=== PATIENT | male | born 1955 | race Hispanic/Latino ===

== ENCOUNTER 2020-05-02 09:01 | Inpatient (IN) | payer SELFPAY ==
[2020-05-02] VITALS (22 sets, daily range): BP systolic 114–174; BP diastolic 79–117; PULSE 61–77; RESP 13–19; TEMP 36.4–36.6; O2SAT 98–100; BMI 28.6; BMI 28.7
--- NOTE | 2020-05-02 09:05 | ED.RN ---
PT NON [place]ER SPEAKING, SON AT BEDSIDE TRANSLATING.
--- NOTE | 2020-05-02 09:07 | EKG12_ITS ---
Test Reason : STEMI Blood Pressure : / mmHG Vent. Rate : 057 BPM Atrial Rate : 057 BPM P-R Int : 170 ms QRS Dur : 104 ms QT Int : 450 ms P-R-T Axes : 026 -56 080 degrees QTc Int : 438 ms Sinus bradycardia Left anterior fascicular block ST elevation consider inferolateral injury or acute infarct ACUTE [place] / STEMI Consider right ventricular involvement in acute inferior infarct Abnormal ECG Confirmed by MAYDA JETER, BISI ([id number]), newspaper editor NEHEMIAH DAVIS ([id number]) on 05/05/2020 11:27:52 AM Referred By: Charles Tucker Confirmed By:ANGELIC TUCKER MD
--- NOTE | 2020-05-02 09:09 | ED.DCSUM_ITS ---
- ER Visit Summary Date of Service: 05/02/20 Chief Complaint: Acute chest pain History of Present Illness: The patient is a 64 M with no significant past medical or surgical history. However he does not see any physicians. Currently on no medications and has no allergies. The patient is does not speak Croatian but his son is with him and is his hand stemmer. Reportedly per the son and the squad the patient works at a local farm and began having chest pain sometime this morning. Recently has not been ill. He is not had recent chest pain reportedly. Kalpana did an EKG in the field which was transmitted to the emergency department and looks like an acute inferolateral PR. The STEMI team was activated prearrival. Patient denies other complaints. He has never had a DVT or PE. He has had no recent travel. Physical Examination: Older male. Initial blood pressure is 114/79. Heart rate of 57. HEENT exam unremarkable. Neck nontender. No lymphadenopathy. No JVD. Lungs clear to auscultation bilaterally. Heart regular rhythm rate about 55-60. No murmur. Chest wall nontender. Abdomen soft nontender. Normal bowel sounds. Patient moving all 4 extremities. Equal symmetrical radial pulses. Calves are nontender without edema or cords. Neurologically he is awake. He is conversing with his son as the hand stemmer. He is following commands. Test Results: EKG shows sinus bradycardia rate of 57 with what appears to be acute inferolateral PR with ST elevation in leads II, III and aVF of approximately [address] depression in leads V1, V2, V3 and also ST elevation in V5 and V6. CBC shows a white count 8 hemoglobin of 15. Chemistries show potassium of 2.6 with the charge nurse notified the [facility] about. Normal BUN and creatinine. Glucose elevated to 15. Troponin 0 0.086. Initially for chest pain protocol a chest x-ray was ordered but the patient went to [facility] so that has been canceled. If cardiology or hospitalist wants 1 they can reorder it. Emergency Department Course and Treatment: Prior to arrival a 64-year-old male brought in by [facility] had STEMI team activated on prehospital EKGs. [facility] had already given the patient aspirin and sublingual nitroglycerin. Reportedly he is pain-free. Treatment Plan: I spoke to the rental boats caretaker Dr. Tucker. He came to the emergency department prior to the patient's arrival. He is also reviewed the prehospital EKGs. Is also spoken to the patient and his son and received consent. He will take the patient directly to the [facility] that is already ready to receive the patient. He did not want any further medications given to the patient at this time and they will administer the medications that he wants in the [facility]. Patient does have pacing pads in place if needed. Disposition: Directly to the [facility]. Then admission. I have already spoken to the configuration management architect and the hospitalist. Impression: Acute inferolateral PR Hypokalemia Hyperglycemia This note was generated with [employer]app[employer] dictation software. It may contain incorrect words, spelling, and punctuation that were not noted in review of the chart prior to signing
--- NOTE | 2020-05-02 09:14 | HP.PCM_ITS ---
History of Present Illness Date of Admission: 05/02/20 Chief Complaint: chest pain The patient is a 64 year old M with no significant past medical history was admitted through the ED on 05/02/2020 with a complaint of chest pain. History was taken through his son as patient speaks only Afghan. According to his son, patient said his chest pain started around 3 AM while she was at work. Chest pain was left-sided, pressure-like and did not radiate. He had no assisted lightheadedness or dizziness, palpitations or shortness of breath. He worked throughout his shift with the chest pain and later went to his son's house where chest pain was persistent and gradually became worse so his son called the EMS. MS did an EKG which showed an inferior lateral NE. STEMI alert was called and was sent emergently to the cardiac cath lab tech. EKG done showed sinus bradycardia with rate of [address] elevation in leads II, III and aVF. CBC was unremarkable and BMP showed potassium of 2.6. Initial troponin was 0.2086. Patient had cardiac cath with placement of bare-metal stent in the right coronary artery. He was subsequently transferred to the ICU afterwards. Patient has no history of heart disease. He has been managed for STEMI post cardiac cath with stent placement. [] Past Medical History Allergies No Known Allergies Allergy (Verified 05/02/20 09:06) Surgical History: no surgical history Psychiatric History: No pertinent psych hx Lives: With Family Smoking Status: Never smoker Alcohol: None - *Family History Paternal History Items: - - brain aneurysm Maternal History Items: No pertinent history Review of Systems Constitutional: Denies: Chills, Fever, Weight Change HEENT: Denies: Head Aches, Sinus Congestion, Sinus Drainage Cardiovascular: Reports: Chest Pain, Chest Pressure. Denies: Palpitations Respiratory: Denies: Cough, Shortness of breath at rest, Sputum production Gastrointestinal: Denies: Abdominal Pain, Nausea, Vomiting Genitourinary: Denies: Dysuria Musculoskeletal: Denies: Joint Pain, Joint Tenderness Skin: Denies: Rash, Wounds Neurological: Denies: Numbness, Tingling, Focal weakness Psychiatric: Denies: Anxiety, Depression, Homicidal Ideations, Suicidal Ideations Hematologic/ Lymphatic: Denies: Easy Bruising, Easy Bleeding VTE Information - Inpt Only VTE Present on Admission: No VTE Pharm Prophylaxis ordered?: Yes - Physical Exam Vitals/I&O's: Vital Signs Temp Resp BP 97.8 F 16 114/79 05/02/20 09:07 05/02/20 09:02 05/02/20 09:02 Weight: 0 oz Body Mass Index (BMI) 0.0 General: Alert, Oriented x3, Cooperative HEENT: Atraumatic, PERRLA, EOMI, Normocephalic Neck: Supple, No JVD, Negative Carotid Bruits Lungs: Clear to auscultation, Normal air movement Cardiovascular: Regular rate, No murmurs Abdomen: Bowel Sounds Present, Soft, Non Tender Extremities: No edema, Capillary Refill Less than 3 Seconds Skin: No rashes, No breakdown Musculoskeletal: No Tenderness to Palpation of Joints or Extremities Lymphatic: No Cervical, Supraclavicular, or Inguinal Adenopathy Neurological: Cranial nerves II-XII grossly intact, Neuro grossly intact, Motor Exam 5/5 strength throughout Psych/Mental Status: Normal Affect, Appropriate, Alert and oriented to time, place, person, mood and affect Laboratory Last Values WBC 8.7 K/mm3 (4.4-11.0) 05/02/20 09:05 RBC 5.28 M/mm3 (4.6-6.2) 05/02/20 09:05 Hgb 15.2 g/dL (13.0-16.5) 05/02/20 09:05 Hct 44.8 % (40-54) 05/02/20 09:05 MCV 84.8 fL (80-94) 05/02/20 09:05 MCH 28.8 pg (27.0-32.0) 05/02/20 09:05 MCHC 33.9 g/dL (32-36) 05/02/20 09:05 RDW Std Deviation 39.8 fl (35.1-43.9) 05/02/20 09:05 RDW Coeff of Chris 12.8 % (11.6-14.6) 05/02/20 09:05 Plt Count 223 K/mm3 (150-450) 05/02/20 09:05 MPV 10.6 fl (6.2-12.0) 05/02/20 09:05 Immature Gran % (Auto) 0.300 % (0.0-0.9) 05/02/20 09:05 Neut % (Auto) 53.9 % (47-70) 05/02/20 09:05 Lymph % (Auto) 36.6 % (19-41) 05/02/20 09:05 Wilkinson % (Auto) 6.4 % (0-10) 05/02/20 09:05 Eos % (Auto) 2.1 % (0-5) 05/02/20 09:05 Baso % (Auto) 0.7 % (0-1) 05/02/20 09:05 Absolute Neuts (auto) 4.7 X10^3/uL (2.0-7.7) 05/02/20 09:05 Absolute Lymphs (auto) 3.18 X10^3/uL (0.83-4.51) 05/02/20 09:05 Nucleated RBC % 0 % (0-5) 05/02/20 09:05 Sodium 138 mmol/L (136-145) 05/02/20 09:05 Potassium 2.6 mmol/L (3.5-5.1) L* 05/02/20 09:05 Chloride 104 mmol/L (98-107) 05/02/20 09:05 Carbon Dioxide 24.0 mmol/L (21.0-32.0) 05/02/20 09:05 Anion Gap 10 (5-15) 05/02/20 09:05 BUN 13 mg/dL (7-18) 05/02/20 09:05 Creatinine 1.03 mg/dL (0.70-1.30) 05/02/20 09:05 Estim Creat Clear Calc 0.00 ml/min 05/02/20 09:05 Est GFR (MDRD) Af Amer 93 mL/min (>60) 05/02/20 09:05 Est GFR (MDRD) Non-Af 77 mL/min (>60) 05/02/20 09:05 BUN/Creatinine Ratio 12.6 RATIO (10-20) 05/02/20 09:05 Glucose 215 mg/dL (74-106) H 05/02/20 09:05 Calcium 8.7 mg/dL (8.5-10.1) 05/02/20 09:05 Troponin I 0.086 ng/mL (<0.045) H 05/02/20 09:05 Assessment/Plan 64-year-old male admitted with a complaint of chest pain and found to have inferior STEMI #STEMI s/p cardiac cath * Cath with placement of stent in RCA. He had a bare-metal stent placed. * On aspirin and Brilinta. On high intensity statin. * Consider starting low-dose beta-angela and PASTORA inhibitor tomorrow. * cardiology on board. * #Hypokalemia: Potassium is 2.6. Will replace protocol. Will check magnesium level. #Hyperglycemia: blood glucose on admission was 215. Will check A1C. DVT prophylaxis; SCDs Code status: full code * Patient and son counseled extensively about differences between full code, DNR CCA and DNR CCA. Son could not understand the concept of CODE STATUS very well even when it was explained to him and still could not translate adequately for his father to understand. dividend deposit voucher clerk was brought in and CODE STATUS explained to patient in Afghan and he advocates to be full code. * Total [id number] time spent 20 minutes Inpatient E&M: 54624 Init Hosp L3 Procedures: 94145 Advncd Care Plan 30 Min
[2020-05-02 09:17] LABS: Absolute Lymphocyte Count 3.18 X10^3/uL (0.83-4.51); Absolute Neutrophil Count 4.7 X10^3/uL (2.0-7.7); Basophil# 0.06 X10^3/uL; Basophil% 0.7 % (0-1); Eosinophil# 0.18 X10^3/uL; Eosinophils% 2.1 % (0-5); Hematocrit 44.8 % (40-54); Hemoglobin 15.2 g/dL (13.0-16.5); Lymphocyte # 3.18 X10^3/ul (4.0); Lymphocyte % 36.6 % (19-41); Mean Corp Hgb Conc 33.9 g/dL (32-36); Mean Corpuscular Hgb 28.8 pg (27.0-32.0); Mean Corpuscular Volume 84.8 fL (80-94); Mean Platelet Vol. 10.6 fl (6.2-12.0); Monocyte# 0.56 X10^3/uL; Monocyte% 6.4 % (0-10); NRBC Flagged by Analyzer 0 % (0-5); Neutrophil # 4.68 X10^3/uL (2.7-7.7); Neutrophil % 53.9 % (47-70); Platelet Count 223 K/mm3 (150-450); RBC Distribution Width CV 12.8 % (11.6-14.6); RBC Distribution Width SD 39.8 fl (35.1-43.9); Red Blood Count 5.28 M/mm3 (4.6-6.2); White Blood Count 8.7 K/mm3 (4.4-11.0)
[2020-05-02 09:40] LABS: Anion Gap 10 (5-15); BUN 13 mg/dL (7-18); BUN/Creat Ratio 12.6 RATIO (10-20); Calcium,Total 8.7 mg/dL (8.5-10.1); Chloride 104 mmol/L (98-107); Creatinine, Serum 1.03 mg/dL (0.70-1.30); EST Glomerular Filtration Rate 77 mL/min (>60); Est Glom Filt Rate - Afr Amer 93 mL/min (>60); Glucose 215 mg/dL (74-106); Potassium 2.6 mmol/L (3.5-5.1); Sodium Level 138 mmol/L (136-145)
--- NOTE | 2020-05-02 10:30 | EKG12_ITS ---
Test Reason : POST STEMI Blood Pressure : / mmHG Vent. Rate : 069 BPM Atrial Rate : 069 BPM P-R Int : 170 ms QRS Dur : 108 ms QT Int : 424 ms P-R-T Axes : 047 -89 051 degrees QTc Int : 454 ms Normal sinus rhythm Left anterior fascicular block Abnormal ECG When compared with ECG of 02-MAY-2020 09:02, MANUAL COMPARISON REQUIRED, DATA IS UNCONFIRMED Confirmed by TANNA JETER, EDEN ([id number]), managing editor NEHEMIAH DAVIS ([id number]) on 05/07/2020 10:16:40 AM Referred By: Charles Tucker Confirmed By:EDEN CISSE MD
--- NOTE | 2020-05-02 10:45 | EKG12_ITS ---
Test Reason : AM EKG Blood Pressure : / mmHG Vent. Rate : 065 BPM Atrial Rate : 065 BPM P-R Int : 158 ms QRS Dur : 100 ms QT Int : 446 ms P-R-T Axes : 042 -83 037 degrees QTc Int : 463 ms Sinus rhythm with Premature supraventricular complexes Left axis deviation Inferior infarct , age undetermined T wave abnormality, consider lateral ischemia Abnormal ECG When compared with ECG of 03-MAY-2020 04:33, MANUAL COMPARISON REQUIRED, DATA IS UNCONFIRMED Confirmed by TANNA JETER, EDEN ([id number]), scientific editor LESIA SALDANA ([id number]) on 05/06/2020 8:42:07 AM Referred By: Charles Tucker Confirmed By:EDEN CISSE MD
[2020-05-02] MEDS: 0.9% Normal Saline 1,000 ML 100 ML IV ×2 (11:30→21:08)
[2020-05-02] MEDS: Lisinopril 5 MG Tablet PO (12:34)
[2020-05-02] MEDS: Potassium Chloride 10mEq/100mL 10 MEQ/100 ML IV.SOLN. 100 MEQ IV BOLUS ×2 (13:03→14:30)
[2020-05-02] MEDS: Potassium Chloride 10mEq/100mL 10 MEQ/100 ML IV.SOLN. 50 MEQ IV BOLUS ×2 (16:30→21:07)
[2020-05-02 17:13] LABS: Magnesium 2.1 mg/dL (1.6-2.6)
--- NOTE | 2020-05-02 17:21 | PCM.CONS.C ---
Reason for Consult Date of Consultation: 05/02/20 Reason for Consultation: STEMI History of Present Illness: The patient is a 64 year old M [presenting to [facility] with chest pain. Patient does not speak Serbian and the history was obtained with the help of his son. The chest pain started earlier this morning. It was retrosternal. Patient called 911 and an EKG done in the field revealed inferior and lateral ST elevation MA. STEMI alert was activated prior to the patient coming to the [facility]. Patient was seen in the emergency room and after discussing with the patient the decision was made to proceed with emergent coronary angiography. This revealed occlusion of the circumflex that was treated with bare-metal stent placement. Stent options were discussed with the patient's son prior to proceeding with bare-metal stent. Patient's chest pain improved significantly at the end of the procedure.] Past Medical History Allergies/Adverse Reactions: Allergies No Known Allergies Allergy (Verified 05/02/20 09:06) Surgical History: no surgical history Psychiatric History: No pertinent psych hx - *Family History Paternal History Items: - - brain aneurysm Maternal History Items: No pertinent history Lives: With Family Smoking Status: Never smoker Alcohol: None Objective: Vital Signs Temp Pulse Resp BP Pulse Ox 97.6 F L 63 15 167/105 H 100 05/02/20 10:45 05/02/20 15:00 05/02/20 11:00 05/02/20 11:00 05/02/20 11:51 Oxygen Delivery Method Room Air Weight: 156 lb 11.979 oz Body Mass Index (BMI) 28.6 Intake and Output for Last 24 Hours 04/30/20 05/01/20 05/02/20 23:59 23:59 23:59 Intake Total 160 / 160 Balance 160 / 160 General: Awake, Alert, Oriented x 3 HEENT: Atraumatic Oral: Moist Mucosa Neck: Supple Cardiovascular: Regular Rhythm Abdomen: Soft Extremities: No edema Skin: No Rashes Psych/Mental Status: Appropriate 05/02/20 09:05: WBC 8.7, RBC 5.28, Hgb 15.2, Hct 44.8, MCV 84.8, MCH 28.8, MCHC 33.9, Plt Count 223, MPV 10.6, Immature Gran % (Auto) 0.300, Neut % (Auto) 53.9, Lymph % (Auto) 36.6, [place] % (Auto) 6.4, Eos % (Auto) 2.1, Baso % (Auto) 0.7, Absolute Neuts (auto) 4.7, Nucleated RBC % 0 05/02/20 09:05: Sodium 138, Potassium 2.6 L*, Chloride 104, Carbon Dioxide 24.0, Anion Gap 10, BUN 13, Creatinine 1.03, Est GFR (MDRD) Af Amer 93, Est GFR (MDRD) Non-Af 77, BUN/Creatinine Ratio 12.6, Glucose 215 H, Calcium 8.7, Troponin I 0.086 H 05/02/20 09:05: Magnesium 2.1 Rhythm: EKG: ECHO: Stress Test: Cardiac Cath: PCI: CT Surgery: Holter monitor: EPS: PPM: CXR: Chest CT Scan: Assessment/Plan 1. STEMI: Patient had occlusion of the circumflex that was treated with bare-metal stent placement. We will keep the patient on dual antiplatelet therapy, statin, beta-angela and PASTORA inhibitor. Patient will be admitted to the ICU for further management of his ST elevation MA. His overall EF appears to be preserved.
[2020-05-02 17:44] LABS: Prothrombin Time (Protime)PT. 12.9 SECONDS (11.7-14.9)
[2020-05-02 17:45] LABS: Partial Thromboplast Time 27.1 Seconds (24.1-36.2)
[2020-05-02] MEDS: Metoprolol Tartrate 25 MG Tablet PO (21:07)
[2020-05-02] MEDS: Atorvastatin Calcium 40 MG Tablet PO (21:08)
[2020-05-02] MEDS: TICAGRELOR 90 MG TABLET PO (21:08)
[2020-05-03] VITALS (20 sets, daily range): BP systolic 100–143; BP diastolic 64–107; PULSE 59–79; RESP 14–25; TEMP 36.6–37; O2SAT 95–100
[2020-05-03 03:26] LABS: Hematocrit 45.7 % (40-54); Hemoglobin 14.9 g/dL (13.0-16.5); Mean Corp Hgb Conc 32.6 g/dL (32-36); Mean Corpuscular Hgb 28.2 pg (27.0-32.0); Mean Corpuscular Volume 86.4 fL (80-94); Mean Platelet Vol. 10.4 fl (6.2-12.0); Platelet Count 224 K/mm3 (150-450); RBC Distribution Width CV 13.4 % (11.6-14.6); RBC Distribution Width SD 42.5 fl (35.1-43.9); Red Blood Count 5.29 M/mm3 (4.6-6.2); White Blood Count 12.1 K/mm3 (4.4-11.0)
[2020-05-03 03:53] LABS: Albumin, Serum 3.3 g/dL (3.2-5.0); BUN 12 mg/dL (7-18); BUN/Creat Ratio 13.7 RATIO (10-20); Creatinine, Serum 0.87 mg/dL (0.70-1.30); EST Glomerular Filtration Rate 93 mL/min (>60); Est Glom Filt Rate - Afr Amer 112 mL/min (>60); Estimated Creatinine Clearance 65.37 ml/min; Globulin 3.8 g/dL (2.2-4.2); Glucose 129 mg/dL (74-106); Protein, Total 7.1 g/dL (6.4-8.2)
[2020-05-03 03:54] LABS: ALB/GLOB Ratio 0.9 RATIO (0.9-2.4); AST(SGOT) 343 U/L (15-37); Alanine Aminotransfer ALT/SGPT 92 U/L (16-61); Alkaline Phosphatase 87 U/L (45-117); Anion Gap 5 (5-15); Calcium,Total 9.1 mg/dL (8.5-10.1); Chloride 112 mmol/L (98-107); Potassium 4.6 mmol/L (3.5-5.1); Sodium Level 140 mmol/L (136-145)
--- NOTE | 2020-05-03 07:37 | ECHOD_ITS ---
Version 2 Reason For Study: STEMI Procedure This was a 2D Doppler, Color Flow transthoracic echocardiogram. Exam performed portable in ICU/CCU. Left Ventricle Normal LV size. The estimated ejection fraction is 50-55 %. Normal diastology for age. Inferolateral hypokinesis. Right Ventricle Normal RV size. Normal systolic function. Atria Normal left atrium. Normal right atrium. No doppler evidence for ASD. Bubble contrast study negative for right to left interatrial shunt. Atrial septal aneurysm noted. Mitral Valve There is no mitral valve stenosis. No mitral valve insufficiency. Tricuspid Valve There is no tricuspid stenosis. Trivial tricuspid valve insufficiency. Unable to estimate RV systolic pressure due to insufficient tricuspid regurgitant envelope. Aortic Valve Trisinus/trileaflet aortic valve. There is no aortic stenosis. No aortic valve insufficiency. Pulmonic Valve There is no pulmonic valvular stenosis. No pulmonic valve insufficiency. Great Vessels Normal aortic root. Pericardium/Pleural No pericardial effusion. Medication Performed a rapid injection of agitated mix of 9 cc saline and 1cc air to assess for atrial septal defect. MMode/2D Measurements & Calculations LVIDd: 4.4 cm IVSd: 1.1 cm Ao root diam: 3.1 cm LVIDs: 3.2 cm LVPWd: 1.5 cm RVDd: 3.1 cm FS: 27.6 % LAV(MOD-bp): 47.1 ml LVAd ap4: 27.3 cm2 SV(MOD-sp4): 35.8 ml LAV(MOD-bp) Indexed: 27.5 ml/m2 EDV(MOD-sp4): 71.7 ml LAV(MOD-sp2): 47.0 ml EDV(sp4-el): 74.0 ml LAV(MOD-sp4): 46.7 ml LVAs ap4: 18.2 cm2 ESV(MOD-sp4): 35.9 ml ESV(sp4-el): 35.9 ml EF(MOD-sp4): 49.9 % EF(sp4-el): 51.4 % SV(sp4-el): 38.0 ml LA A4 area: 17.0 cm2 LA dimension(2D): 3.7 cm RA A4 area: 12.5 cm2 Doppler Measurements & Calculations MV E max juan jose: 55.9 cm/sec Lat Peak E' Juan Jose: 5.9 cm/sec Med Peak E' Juan Jose: 5.8 cm/sec MV A max juan jose: 85.4 cm/sec E/E' lat: 9.4 E/E' med: 9.6 MV E/A: 0.66 Ao V2 max: 137.7 cm/sec LV V1 max: 105.2 cm/sec PA V2 max: 75.3 cm/sec Ao max P.6 mmHg LV V1 max P.4 mmHg TR max juan jose: 210.7 cm/sec TR max P.8 mmHg Interpretation Summary The estimated ejection fraction is 50-55 %. Normal diastology for age. Inferolateral hypokinesis Ordering Physician: Cynthia Elizondo Referring Physician: Charles Tucker Performed By: Hina Aguilar RDCS
[2020-05-03] MEDS: Lisinopril 5 MG Tablet PO (09:45)
[2020-05-03] MEDS: TICAGRELOR 90 MG TABLET PO ×2 (09:45→21:09)
[2020-05-03] MEDS: Aspirin E.C. 81 MG Tablet PO (09:45)
[2020-05-03] MEDS: Metoprolol Tartrate 25 MG Tablet PO ×2 (09:45→21:10)
--- NOTE | 2020-05-03 10:00 | EKG12_ITS ---
Test Reason : AM EKG Blood Pressure : / mmHG Vent. Rate : 065 BPM Atrial Rate : 065 BPM P-R Int : 152 ms QRS Dur : 092 ms QT Int : 438 ms P-R-T Axes : 049 -81 053 degrees QTc Int : 455 ms Normal sinus rhythm Left anterior fascicular block T wave abnormality, consider lateral ischemia Abnormal ECG When compared with ECG of 02-MAY-2020 14:02, MANUAL COMPARISON REQUIRED, DATA IS UNCONFIRMED Confirmed by TANNA JETER, EDEN ([id number]), staff editor LESIA SALDANA ([id number]) on 05/06/2020 8:52:09 AM Referred By: Charles Tucker Confirmed By:EDEN CISSE MD
[2020-05-03 11:37] LABS: Cholesterol 231 mg/dL (200); High Density Lipoprotein 46 mg/dL; Triglycerides 168 mg/dL; Very Low Density Lipoprotein 34 mg/dL (5-40)
[2020-05-03 11:52] LABS: Hemoglobin A1c 7.3 % (3.8-5.6)
--- NOTE | 2020-05-03 12:27 | DS.PCM_ITS ---
Discharge Date and Diagnosis Date of Admission: 05/02/20 Date of Discharge: 05/04/20 - Primary Discharge Diagnosis Acute Problems: STEMI newly diagnosed diabetes mellitus hyperlipidemia Hospital Course and Treatment Imaging Results: 05/03/20 07:37 Echo Complete [ECHO] Routine cardiology- Dr Tucker Operations: None Procedures: 2-D Echocardiogram, Cardiac catheterization Summary of Care Provided: The patient is a 64 year old M with no significant past medical history was admitted through the ED on 05/02/2020 with a complaint of chest pain. History was taken through his son as patient speaks only Lao. According to his son, patient said his chest pain started around 3 AM while she was at work. Chest pain was left-sided, pressure-like and did not radiate. He had no assisted lightheadedness or dizziness, palpitations or shortness of breath. He worked throughout his shift with the chest pain and later went to his son's house where chest pain was persistent and gradually became worse so his son called the EMS. MS did an EKG which showed an inferior lateral TN. 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 EKG done showed sinus bradycardia with rate of [address] elevation in leads II, III and aVF. CBC was unremarkable and BMP showed potassium of 2.6. Initial troponin was 0.2086. Patient had cardiac cath with placement of bare-metal stent in the right coronary artery. He was subsequently transferred to the ICU afterwards. Patient has no history of heart disease. He was admitted to be managed for STEMI post cardiac cath with stent placement. Lipid panel done showed elevated total cholesterol and LDL. Was started on high intensity statin as well as lisinopril and metoprolol. 2D echo done showed EF of 50 to 55% with inferior lateral hypokinesis and normal diastolic for age. Right ventricle was normal in size and function and right and left atria were normal with an atrial septal aneurysm noted. Hypokalemia resolved with replacement. Patient remained stable and was discharged home on 05/03/2020. He is to follow-up with primary care doctor and cardiology. Patient seen and examined prior to discharge. Review was done through the interpreting service. He had no complaints and felt well. Patient asked for paperwork for long-term disability to take to his workplace because he felt he was disabled from the stents that he had placed. I informed patient that I was not able to provide such paperwork he would have to follow-up with his primary care doctor or establish with a PCP for such paperwork to be done on outpatient basis. O/E: Vital Signs Temp Pulse Resp BP Pulse Ox 97.8 F 67 18 119/90 H 99 05/03/20 12:00 05/03/20 12:00 05/03/20 12:00 05/03/20 12:00 05/03/20 12:00 General: Alert, Oriented x3, Cooperative HEENT: Atraumatic, PERRLA, EOMI, Normocephalic Neck: Supple, No JVD, Negative Carotid Bruits Lungs: Clear to auscultation, Normal air movement Cardiovascular: Regular rate, No murmurs Abdomen: Bowel Sounds Present, Soft, Non Tender Extremities: No edema, Capillary Refill Less than 3 Seconds Skin: No rashes, No breakdown Musculoskeletal: No Tenderness to Palpation of Joints or Extremities Lymphatic: No Cervical, Supraclavicular, or Inguinal Adenopathy Neurological: Cranial nerves II-XII grossly intact, Neuro grossly intact, Motor Exam 5/5 strength throughout Psych/Mental Status: Normal Affect, Appropriate, Alert and oriented to time, place, person, mood and affect Plan is for discharge home today. - Physical Exam Vitals/I&O's: Vital Signs Temp Pulse Resp BP Pulse Ox 97.8 F 65 14 123/90 H 98 05/03/20 08:00 05/03/20 10:00 05/03/20 10:00 05/03/20 10:00 05/03/20 10:00 Oxygen Delivery Method Room Air Weight: 154 lb 5.177 oz Body Mass Index (BMI) 28.6 Intake and Output for Last 24 Hours 05/01/20 05/02/20 05/03/20 23:59 23:59 23:59 Intake Total 1112.80 / 1352.80 820 / 820 Output Total 400 / 700 900 / 900 Balance 712.80 / 652.80 -80 / -80 Laboratory Results 05/02/20 09:05: Magnesium 2.1 05/02/20 17:15: PT 12.9, INR 1.0, APTT 27.1 05/03/20 03:04: WBC 12.1 H, RBC 5.29, Hgb 14.9, Hct 45.7, MCV 86.4, MCH 28.2, MCHC 32.6, RDW Std Deviation 42.5, RDW Coeff of Chris 13.4, Plt Count 224, MPV 10.4 05/03/20 03:05: Hemoglobin A1c 7.3 H 05/03/20 03:10: Sodium 140, Potassium 4.6, Chloride 112 H, Carbon Dioxide 23.0, Anion Gap 5, BUN 12, Creatinine 0.87, Estim Creat Clear Calc 65.37, Est GFR (MDRD) Af Amer 112, Est GFR (MDRD) Non-Af 93, BUN/Creatinine Ratio 13.7, Glucose 129 H, Calcium 9.1, Total Bilirubin 1.00, AST 343 H, ALT 92 H, Alkaline Phosphatase 87, Total Protein 7.1, Albumin 3.3, Globulin 3.8, Albumin/Globulin Ratio 0.9 05/03/20 03:10: Triglycerides 168, Cholesterol 231 H, LDL Cholesterol 151 H, VLDL Cholesterol 34, HDL Cholesterol 46 Current Medications Acetaminophen (Acetaminophen 325 Mg Tablet) 650 mg PO Q6H PRN PRN PRN Reason: Pain Score 1-10/Temp > 100.7 F Aspirin (Aspirin E.C. 81 Mg Tablet) 81 mg PO DAILY@0800 [facility] Last Admin: 05/03/20 09:45 Dose: 81 mg Documented by: Atorvastatin Calcium (Atorvastatin Calcium 40 Mg Tablet) 40 mg PO QHS [facility] Last Admin: 05/02/20 21:08 Dose: 40 mg Documented by: Atropine Sulfate (Atropine Sulfate 1 Mg/10 Ml Syringe) 0.5 mg IV UD PRN PRN Reason: HR <50 bpm Heparin Sodium (Beef Lung) (Heparin Lock 500 Unit/5 Ml In 10 Ml Syringe) 500 unit IV UD PRN PRN Reason: HEPARIN FLUSH Sodium Chloride () 1,000 mls @ 100 mls/hr IV .Q10H [facility] Last Admin: 05/03/20 09:44 Dose: Not Given Documented by: Sodium Chloride () 250 mls @ 15 mls/hr IV .[id number] PRN PRN Reason: Saline Flush Labetalol HCl (Labetalol (Prefilled) 20 Mg/4 Ml) 5 mg IV X1 PRN PRN Reason: SBP >160 when pulling sheath Stop: 05/04/20 10:40 Lisinopril (Lisinopril 5 Mg Tablet) 5 mg PO DAILY [facility] Last Admin: 05/03/20 09:45 Dose: 5 mg Documented by: Metoprolol Tartrate (Metoprolol Tartrate 25 Mg Tablet) 25 mg PO BID [facility] Last Admin: 05/03/20 09:45 Dose: 25 mg Documented by: Nitroglycerin (Nitroglycerin (Inpatient Use) 0.4 Mg Tab.Subl) 0.4 mg SUBLINGUAL Q5M PRN PRN Reason: CARDIAC/CHEST PAIN Ondansetron HCl (Ondansetron 4 Mg/2 Ml Vial) 4 mg IV Q8H PRN PRN PRN Reason: NAUSEA/VOMITING Sodium Chloride (0.9% Normal Saline 500 Ml Iv.Soln.) 500 ml IV BOLUS PRN PRN Reason: VASO-VAGAL PROTOCOL Sodium Chloride (0.9% Saline Lock 10 Ml Syringe) 10 - 40 ml IV UD PRN PRN Reason: SALINE FLUSH Ticagrelor (Ticagrelor 90 Mg Tablet) 90 mg PO BID [facility] Last Admin: 05/03/20 09:45 Dose: 90 mg Documented by: Discharge Diet: Low fat/ Low Cholesterol, 1800 Calorie Control Diet Discharge Activity: Return to Normal Activity Weight Bearing Status: Weight bearing as tolerated Call your doctor if your incision/area has: Continuous Slow Oozing Call your doctor if you observe: Shortness of breath, Dizziness, Fainting spells, Swelling in the ankles, Chest pain Home Medications: Medications to take at Discharge Aspirin E.C. [Ecotrin] 81 mg PO DAILY@0800 #30 tab 05/03/20 Atorvastatin Calcium [Lipitor] 40 mg PO QHS #30 tab 05/03/20 Lisinopril [Zestril] 5 mg PO DAILY #30 tab 05/03/20 Metformin HCl 500 mg PO BID #60 tab 05/03/20 Metoprolol Tartrate [Lopressor (beta rebeca)] 25 mg PO BID #60 tab 05/03/20 Ticagrelor [Brilinta] 90 mg PO BID #60 tab 05/03/20 Following Prescriptions Were Given to Patient: Ticagrelor [Brilinta] 90 mg PO BID #60 tab Prescription Printed Aspirin E.C. [Ecotrin] 81 mg PO DAILY@0800 #30 tab Prescription Printed Atorvastatin Calcium [Lipitor] 40 mg PO QHS #30 tab Prescription Printed Metoprolol Tartrate [Lopressor (beta rebeca)] 25 mg PO BID #60 tab Prescription Printed Metformin HCl 500 mg PO BID #60 tab Prescription Printed Lisinopril [Zestril] 5 mg PO DAILY #30 tab Prescription Printed Primary Care Physician: Care Physician,No Primary [Primary Care Provider] - Please Follow Up With: When: 2-3 weeks Please Follow Up With: Patricio Balbuena MD When: call office to establish PCP relationship Patient Instructions: What Is Type 2 Diabetes?, Recognizing a Heart Attack or Angina Disposition: Home Minutes spent on discharge:: 45 Patient Condition:: Stable Medical Necessity - Tobacco Use Smoking Status: Never smoker Meaningful Use Info Meaningful Use Diagnoses (Choose all that apply): AMI - AMI/Post PCI/Angioplasty Aspirin given w/in 24hrs of arrival?: Yes ASA at discharge?: Yes Antiplatelet Therapy at Discharge:: Yes Statins at discharge?: Yes Julius/ARB at discharge?: Yes Beta Rebeca at discharge?: Yes Done w/ Acute TN measure.: Yes Documented LVEF (%): 55 Inpatient E&M: 01304 Disch Hosp
--- NOTE | 2020-05-03 14:28 | PN_ITS ---
Subjective: Patient seen and examined. He has no complaints. Review of systems otherwise negative. Translation services utilized for review of systems and communicating with patient. Vitals/I&O's: Vital Signs Temp Pulse Resp BP Pulse Ox 97.8 F 60 15 118/90 H 99 05/03/20 12:00 05/03/20 12:00 05/03/20 12:00 05/03/20 12:00 05/03/20 12:00 Oxygen Delivery Method Room Air Weight: 154 lb 5.177 oz Body Mass Index (BMI) 28.6 Intake and Output for Last 24 Hours 05/01/20 05/02/20 05/03/20 23:59 23:59 23:59 Intake Total 1112.80 / 1352.80 1060 / 1060 Output Total 400 / 700 900 / 900 Balance 712.80 / 652.80 160 / 160 General: Alert, Oriented x3, Cooperative HEENT: Atraumatic, PERRLA, EOMI, Normocephalic Oral: Moist Mucosa Neck: Supple, No JVD, Negative Carotid Bruits Lungs: Clear to auscultation, Normal air movement Cardiovascular: Regular rate, No murmurs Abdomen: Bowel Sounds Present, Soft, Non Tender Extremities: No edema, Capillary Refill Less than 3 Seconds Skin: No rashes, No breakdown Musculoskeletal: No Tenderness to Palpation of Joints or Extremities Neurological: Cranial nerves II-XII grossly intact Psych/Mental Status: Normal Affect, Appropriate, Alert and oriented to time, place, person, mood and affect Laboratory Results 05/02/20 09:05: Magnesium 2.1 05/02/20 17:15: PT 12.9, INR 1.0, APTT 27.1 05/03/20 03:04: WBC 12.1 H, RBC 5.29, Hgb 14.9, Hct 45.7, MCV 86.4, MCH 28.2, MCHC 32.6, RDW Std Deviation 42.5, RDW Coeff of Chris 13.4, Plt Count 224, MPV 10.4 05/03/20 03:05: Hemoglobin A1c 7.3 H 05/03/20 03:10: Sodium 140, Potassium 4.6, Chloride 112 H, Carbon Dioxide 23.0, Anion Gap 5, BUN 12, Creatinine 0.87, Estim Creat Clear Calc 65.37, Est GFR (MDRD) Af Amer 112, Est GFR (MDRD) Non-Af 93, BUN/Creatinine Ratio 13.7, Glucose 129 H, Calcium 9.1, Total Bilirubin 1.00, AST 343 H, ALT 92 H, Alkaline Phosphatase 87, Total Protein 7.1, Albumin 3.3, Globulin 3.8, Albumin/Globulin Ratio 0.9 05/03/20 03:10: Triglycerides 168, Cholesterol 231 H, LDL Cholesterol 151 H, VLDL Cholesterol 34, HDL Cholesterol 46 Current Medications Acetaminophen (Acetaminophen 325 Mg Tablet) 650 mg PO Q6H PRN PRN PRN Reason: Pain Score 1-10/Temp > 100.7 F Aspirin (Aspirin E.C. 81 Mg Tablet) 81 mg PO DAILY@0800 [facility] Last Admin: 05/03/20 09:45 Dose: 81 mg Documented by: Atorvastatin Calcium (Atorvastatin Calcium 40 Mg Tablet) 40 mg PO QHS [facility] Last Admin: 05/02/20 21:08 Dose: 40 mg Documented by: Atropine Sulfate (Atropine Sulfate 1 Mg/10 Ml Syringe) 0.5 mg IV UD PRN PRN Reason: HR <50 bpm Heparin Sodium (Beef Lung) (Heparin Lock 500 Unit/5 Ml In 10 Ml Syringe) 500 unit IV UD PRN PRN Reason: HEPARIN FLUSH Sodium Chloride () 1,000 mls @ 100 mls/hr IV .Q10H [facility] Last Admin: 05/03/20 09:44 Dose: Not Given Documented by: Sodium Chloride () 250 mls @ 15 mls/hr IV .[id number] PRN PRN Reason: Saline Flush Labetalol HCl (Labetalol (Prefilled) 20 Mg/4 Ml) 5 mg IV X1 PRN PRN Reason: SBP >160 when pulling sheath Stop: 05/04/20 10:40 Lisinopril (Lisinopril 5 Mg Tablet) 5 mg PO DAILY [facility] Last Admin: 05/03/20 09:45 Dose: 5 mg Documented by: Metoprolol Tartrate (Metoprolol Tartrate 25 Mg Tablet) 25 mg PO BID [facility] Last Admin: 05/03/20 09:45 Dose: 25 mg Documented by: Nitroglycerin (Nitroglycerin (Inpatient Use) 0.4 Mg Tab.Subl) 0.4 mg SUBLINGUAL Q5M PRN PRN Reason: CARDIAC/CHEST PAIN Ondansetron HCl (Ondansetron 4 Mg/2 Ml Vial) 4 mg IV Q8H PRN PRN PRN Reason: NAUSEA/VOMITING Sodium Chloride (0.9% Normal Saline 500 Ml Iv.Soln.) 500 ml IV BOLUS PRN PRN Reason: VASO-VAGAL PROTOCOL Sodium Chloride (0.9% Saline Lock 10 Ml Syringe) 10 - 40 ml IV UD PRN PRN Reason: SALINE FLUSH Ticagrelor (Ticagrelor 90 Mg Tablet) 90 mg PO BID [facility] Last Admin: 05/03/20 09:45 Dose: 90 mg Documented by: STROKE Vital Signs/Narrative: Vital Signs Temp Pulse Resp BP BP Pulse Ox 05/03/20 12:00 97.8 F 60 15 119/90 H 118/90 H 99 05/03/20 11:00 66 16 124/89 H 97 Medical Necessity - Tobacco Use Smoking Status: Never smoker Assessment/Plan 64-year-old male admitted with a complaint of chest pain and found to have inferior STEMI #STEMI s/p cardiac cath * Cath with placement of stent in RCA. He had a bare-metal stent placed. * On aspirin and Brilinta. On high intensity statin. * on metoprolol and lisinopril * cardiology on board. * #Hypokalemia: resolved. #Hyperlipidemia: on statin #Newly diagnosed diabetes mellitus * A1c 7.3. Blood glucose was 215 on admission. Will start patient on metformin 500 mg twice daily. * Insulin sliding scale. Dr. Rafael ZIMMERMAN at bedtime. DVT prophylaxis; SCDs Code status: full code * Inpatient E&M: 92810 Subs Hosp L2
--- NOTE | 2020-05-03 15:55 | PN.CARD_ITS ---
Subjectve: Patient is doing well. Denies any chest pain or shortness of breath Objective: Vital Signs Temp Pulse Resp BP Pulse Ox 98.4 F 79 16 122/85 H 100 05/03/20 15:46 05/03/20 15:46 05/03/20 15:46 05/03/20 15:46 05/03/20 15:46 Oxygen Delivery Method Room Air Weight: 154 lb 5.177 oz Body Mass Index (BMI) 28.6 Intake and Output for Last 24 Hours 05/01/20 05/02/20 05/03/20 23:59 23:59 23:59 Intake Total 1112.80 / 1352.80 2300 / 2300 Output Total 400 / 700 1050 / 1050 Balance 712.80 / 652.80 1250 / 1250 General: Awake, Alert, Oriented x 3 HEENT: Atraumatic Oral: Moist Mucosa Neck: Supple Lungs: Clear to auscultation Cardiovascular: Regular Rhythm Abdomen: Soft Extremities: No edema Skin: No Rashes Psych/Mental Status: Appropriate 05/02/20 09:05: Magnesium 2.1 05/02/20 17:15: PT 12.9, INR 1.0, APTT 27.1 05/03/20 03:04: WBC 12.1 H, RBC 5.29, Hgb 14.9, Hct 45.7, MCV 86.4, MCH 28.2, MCHC 32.6, Plt Count 224, MPV 10.4 05/03/20 03:05: Hemoglobin A1c 7.3 H 05/03/20 03:10: Sodium 140, Potassium 4.6, Chloride 112 H, Carbon Dioxide 23.0, Anion Gap 5, BUN 12, Creatinine 0.87, Est GFR (MDRD) Af Amer 112, Est GFR (MDRD) Non-Af 93, BUN/Creatinine Ratio 13.7, Glucose 129 H, Calcium 9.1, Total Bilirubin 1.00 05/03/20 03:10: Triglycerides 168, Cholesterol 231 H, LDL Cholesterol 151 H, VLDL Cholesterol 34, HDL Cholesterol 46 Rhythm: EKG: ECHO: Stress Test: Cardiac Cath: PCI: CT Surgery: Holter monitor: EPS: PPM: CXR: Chest CT Scan: Medical Necessity - Tobacco Use Smoking Status: Never smoker Assessment/Plan 1. STEMI: Patient had occlusion of the circumflex that was treated with bare- metal stent placement. We will keep the patient on dual antiplatelet therapy, statin, beta-angela and PASTORA inhibitor. Patient can be transferred to the PCU. If he does well overnight he could be discharged home tomorrow. He can follow- up with Dr. Dumont as an outpatient.
--- NOTE | 2020-05-03 16:10 | CM.UR ---
Patiient had asked about how to apply for disability. Spoke with patient's son briefly on phone in presence of patient. Explained was giving him information from [facility] website on how to start the process. It was printed in Erit[place]an. Vilma Richardson RN, CCM.
[2020-05-03 16:55] LABS: Bedside Glucose 130 mg/dL (70-110)
[2020-05-03] MEDS: metFORMIN HCl 500 MG Tablet PO (17:11)
[2020-05-03] MEDS: Acetaminophen 325 MG Tablet 650 MG PO (18:49)
[2020-05-03] MEDS: Atorvastatin Calcium 40 MG Tablet PO (21:09)
[2020-05-03 21:50] LABS: Bedside Glucose 123 mg/dL (70-110)
--- NOTE | 2020-05-04 02:44 | PCS.PANDOC ---
PANDEMIC DOCUMENTATION INITIATED: Date: 05/02/2020 Time: [id number]
[2020-05-04 03:00] VITALS: PULSE 69
[2020-05-04 03:40] VITALS: BP 83/49; PULSE 63; RESP 18; TEMP 37.1; O2SAT 95
[2020-05-04 06:24] VITALS: BP 101/70; PULSE 67; RESP 12; TEMP 36.8; O2SAT 94
[2020-05-04 06:35] LABS: Bedside Glucose 125 mg/dL (70-110)
[2020-05-04 06:41] VITALS: PULSE 62
[2020-05-04 06:41] LABS: Hematocrit 42.1 % (40-54); Hemoglobin 13.8 g/dL (13.0-16.5); Mean Corp Hgb Conc 32.8 g/dL (32-36); Mean Corpuscular Hgb 28.5 pg (27.0-32.0); Mean Platelet Vol. 10.7 fl (6.2-12.0); Platelet Count 208 K/mm3 (150-450); RBC Distribution Width CV 13.2 % (11.6-14.6); RBC Distribution Width SD 42.3 fl (35.1-43.9); Red Blood Count 4.84 M/mm3 (4.6-6.2); White Blood Count 10.1 K/mm3 (4.4-11.0)
[2020-05-04 07:08] VITALS: O2SAT 97
[2020-05-04 09:22] VITALS: BP 101/70; PULSE 62
[2020-05-04] MEDS: Lisinopril 5 MG Tablet PO (09:22)
[2020-05-04] MEDS: Aspirin E.C. 81 MG Tablet PO (09:22)
[2020-05-04] MEDS: TICAGRELOR 90 MG TABLET PO (09:22)
[2020-05-04] MEDS: Metoprolol Tartrate 25 MG Tablet PO (09:22)
--- NOTE | 2020-05-04 10:00 | EKG12_ITS ---
Test Reason : POST STEMI Blood Pressure : / mmHG Vent. Rate : 066 BPM Atrial Rate : 066 BPM P-R Int : 154 ms QRS Dur : 098 ms QT Int : 412 ms P-R-T Axes : 044 270 048 degrees QTc Int : 431 ms Normal sinus rhythm Left anterior fascicular block Nonspecific ST abnormality Abnormal ECG When compared with ECG of 02-MAY-2020 10:30, MANUAL COMPARISON REQUIRED, DATA IS UNCONFIRMED Confirmed by TANNA JETER, EDEN ([id number]), manuscript editor LESIA SALDANA ([id number]) on 05/06/2020 8:52:22 AM Referred By: Charles Tucker Confirmed By:EDEN CISSE MD
--- NOTE | 2020-05-04 11:47 | DCINST_ITS ---
You will use the following diet at home:: Calorie/Carbohydrate Controlled (specify 1200, 1400, etc) - 1800 calories Your food should be the consistency of: Regular Your liquids should be the consistency of: Regular/Thin Discharge Activity: Return to Normal Activity Weight Bearing Status: Weight bearing as tolerated Call your doctor if your incision/area has: Continuous Slow Oozing Call your doctor if you observe: Shortness of breath, Dizziness, Fainting spells, Swelling in the ankles, Chest pain Instructions: What Is Type 2 Diabetes?, Recognizing a Heart Attack or Angina Allergies/Adverse Reactions: Allergies No Known Allergies Allergy (Verified 05/02/20 09:06) Medications to take at Discharge Aspirin E.C. [Ecotrin] 81 mg PO DAILY@0800 #30 tab 05/03/20 Atorvastatin Calcium [Lipitor] 40 mg PO QHS #30 tab 05/03/20 Lisinopril [Zestril] 5 mg PO DAILY #30 tab 05/03/20 Metformin HCl 500 mg PO BID #60 tab 05/03/20 Metoprolol Tartrate [Lopressor (beta angela)] 25 mg PO BID #60 tab 05/03/20 Ticagrelor [Brilinta] 90 mg PO BID #60 tab 05/03/20 The following prescriptions were given: Ticagrelor [Brilinta] 90 mg PO BID #60 tab Prescription Printed Aspirin E.C. [Ecotrin] 81 mg PO DAILY@0800 #30 tab Prescription Printed Atorvastatin Calcium [Lipitor] 40 mg PO QHS #30 tab Prescription Printed Metoprolol Tartrate [Lopressor (beta angela)] 25 mg PO BID #60 tab Prescription Printed Metformin HCl 500 mg PO BID #60 tab Prescription Printed Lisinopril [Zestril] 5 mg PO DAILY #30 tab Prescription Printed Primary Care Physician: Care Physician,No Primary [Primary Care Provider] - Test Results: Test results from this visit will be discussed in further detail at your follow- up appointment, if applicable. Please Follow Up With: When: 2-3 weeks Please Follow Up With: Patricio Balbuena MD When: call office to establish PCP relationship Proposed Discharge Date: 05/04/20
--- NOTE | 2020-05-04 11:48 | PCM.WORK.EX ---
Work/School Excuse Please excuse this person from:: Work From: 05/05/20 through: 04/06/20 Restrictions: Light Duty
--- NOTE | 2020-05-04 16:38 | CL.I_ITS ---
Patient Name: NEIL ERNST Study Date: 05/02/2020 Performing: Nory Tucker MD Ht: 70 inches 177 cm : 1955 Wt: 175.2 lbs 79.37 kg Age: 64 Gender: male BSA: 1.97 PROCEDURE(S) PERFORMED TR49-QWG/COR/LV DS11-FEF, BMS AND/OR PTCA ARTERY OR GRAFT SINGLE VESSEL [id number], EACH ADD'L CORONARY ART, SAME MAJOR CLINICAL PROFILE AND CO-MORBIDITIES Indications: ACS <= 24 hrs Heart Failure: None Stress/Imaging Stress/Image Study Performed: No CAD Presentations: STEMI. Symptom onset Date/Time: 05/02/20 Time Not Available CONCLUSIONS CAD as described. Overall preserved EF with regional wall motion abnormalities as described. No signi ficant or MR. Successful PCI of pLCx/ OM1 bifurcation with BMS to LCx and PTCA alone of OM1. RECOMMENDATIONS Follow up with Dr. Tim Finley for at least 1 month and ideally 12 months DESCRIPTION OF PROCEDURE The patient arrived to the procedure lab. The risks and benefits of the procedure as well as a full d escription of our services here and lack of surgical backup were fully explained to the patient and/o r their significant other prior to the catheterization. The Timeout was completed, verifying the hailey ect patient and procedure. The patient's procedural site was prepped and draped in the usual fashion. Local anesthetic was given subcutaneously to right radial region with Lidocaine 2%. Using a modified Seldinger technique, arterial access was obtained via the right radial artery, a 6Fr sheath was inse rted.. Left Coronary Artery selective angiography was performed in multiple views using a 5 Fr. JL3. 5 catheter. Left Ventriculography was performed in [place] projection using a 5 Fr. JR4. LV to AO pullbac k pressures were then recorded. Right Coronary Artery selective angiography was then performed in mul tiple views using a 5 Fr. JR 4 catheter XB 3.0 Guide catheter was inserted and engaged into the LCA. BMW Novice Guide wire was advance d to the Circumflex. Priority One inserted Pass # 1 Filion AP Removed Runthrough Guide wire was advan elijah to the 1st OM. Emerge 1.5 x 15 Balloon catheter was inserted. Balloon catheter was advanced acros s lesion in the first obtuse marginal, ostial. PTCA balloon inflated at 10 atms for 13 secs. Emerge 3 .5 x 15 Balloon catheter was inserted. Balloon catheter was advanced across lesion in the circumflex, proximal. PTCA balloon inflated at 8 atms for 12 secs. Emerge 2.0 x 12 Balloon catheter was inserted . Balloon catheter was advanced across lesion in the first obtuse marginal, ostial. PTCA balloon infl ated at 6 atms for 10 secs. PTCA balloon inflated at 6 atms for 6 secs. Angiogram performed post ball oon dilatation. Rebel 4.0 x 20 Bare Metal stent was inserted Bare Metal stent was advanced across the lesion in the circumflex, proximal. Runthrough Guide wire was repositioned to the Circumflex Angiogram performed post stent deployment. Runthrough Guide wire was repositioned to the 1 st OM Emerge 2.0 x 15 Balloon catheter was inserted. NC Euphora 4.0 x 12 Balloon catheter was inserte d. Balloon catheter was advanced across lesion in the circumflex, proximal. Angiogram performed post balloon dilatation. Emerge 2.0 x 12 Balloon catheter was inserted. Balloon catheter was advanced acro ss lesion in the first obtuse marginal, ostial. PTCA balloon inflated at 8 atms for 45 secs. Angiogra m performed post balloon dilatation. The arterial sheath was pulled and a TR Band was applied for h emostasis CORONARY ANGIOGRAPHY DOMINANCE: Right Dominant LEFT HEART ASSESSMENT Left Ventricular Ejection Fraction: by LV Gram 50-55 % Inferior Mid Hypokinesis - Moderate LEFT MAIN: Angiographically normal LEFT ANTERIOR DESCENDING ARTERY: Mild luminal irregularities. Myocardial bridging in the mLAD. DIAGONAL 2: Proximal - 70 % Stenosis CIRCUMFLEX ARTERY: PROX CIRC: 100 % Stenosis OM 1: Ostial - 100 % Stenosis RIGHT CORONARY ARTERY: PROX RCA: 30 % Stenosis VALVE FINDINGS: No Aortic Valve Stenosis No Mitral Insufficiency INTERVENTION INFORMATION LESION SITE: Circumflex (Proximal) Lesion Complexity: High/C, chronic total occlusion: No, lesion at bifurcation: Yes, thrombus present: Yes, lesion length: 15 mm, culprit lesion: Yes, Previously treated lesion: No Pre Stenosis: 100 % Pre intervention KARLIE flow: 0 PROCEDURE: Thrombectomy, Bare Metal Stent with pre and post dilatation. Post Stenosis: 0 % Post intervention KARLIE flow: 3 Lesion Devices: Cardinal 6 Fr XB3.0 100cm Guide Catheter Johnson .014 BMW Novice Straight 190cm Terumo Priority One Aspiration Catheter Terumo .014 Runthrough Extra Floppy 180cm straight Bereket Sci EMERGE MR 3.50x15 BALLOON Bereket Sci Rebel MR BMS 4.00x20 Medtronic NC EUPHORA RX 4.0x12 BALLOON LESION SITE: 1st OM (Ostial) Lesion Complexity: High/C, chronic total occlusion: No, lesion at bifurcation: Yes, thrombus present: Yes, lesion length: 5 mm, culprit lesion: Yes, Previously treated lesion: No Pre Stenosis: 100 % Pre intervention KARLIE flow: 0 PROCEDURE: Balloon Angioplasty Post Stenosis: 50 % Post intervention KARLIE flow: 3 Lesion Devices: Cardinal 6 Fr XB3.0 100cm Guide Catheter Johnson .014 BMW Novice Straight 190cm Terumo .014 Runthrough Extra Floppy 180cm straight Bereket Sci EMERGE MR 1.50x15 BALLOON Bereket Sci EMERGE MR 2.00x12 BALLOON COMPLICATIONS No Complications PROCEDURE MEDICATIONS Oxygen: 2 L/min via nasal cannula Brilinta 180 mg PO @ 05/02/2020 10:30:18 Heparin 3000 unit(s) IV 05/02/2020 09:15:17 Heparin given IA 05/02/2020 09:17:29 Potassium Chloride 60 mEq PO 05/02/2020 09:52:29 Verapamil 2.5mg, Ntg 100mcgs, 3000 units of Heparin given IA 05/02/2020 09:17:29 SUMMARY OF HEMODYNAMIC DATA Time AIR REST ECG 09:14:11 AO 153/107 (128) SA 09:19:48 LV 151/5, 23 10:08:24 LV 143/8, 21 10:08:30 LV 138/0, 22 10:09:10 LVp 148/1, 23 10:09:30 AOp 149/83 (110) 10:09:35 Signed By Nory Tucker MD On 05/04/2020 4:37:14 PM Nory Tucker MD
--- NOTE | 2020-05-07 05:51 | CRPHASE1 ---
Patient Communication Manager Sales Training:: Charles Tucker Refer Phase II Cardiac Rehab:: Yes Sessions:: 36 sessions - 2 days/wk, 18 weeks Choice Letter Given to Patient:: Yes - No Guide to Cardiac Rehab Given by ICU Staff Prior to Discharge: Yes - No Guide to Cardiac Rehab Mailed to Patient by CR Staff:: Yes - 05/05/2020 Patient Contacted Post Discharge by CR Staff:: Yes - 05/05/2020 PHII Cardiac Rehab Referral:: [facility] Risk Factors/Lifestyle Family History: Family History (Last Updated 05/05/20 @ 07:46 by Zaida Kim) Father Brain aneurysm Laboratory Values: Cardiac Rehab Phase I Labs Hemoglobin A1c 7.3 % (3.8-5.6) H 05/03/20 03:05 Triglycerides 168 mg/dL (-199) 05/03/20 03:10 Cholesterol 231 mg/dL (200) H 05/03/20 03:10 LDL Cholesterol 151 mg/dL (0-130) H 05/03/20 03:10 HDL Cholesterol 46 mg/dL (40-) 05/03/20 03:10 Cardiac Rehabilitation Info Cardiac Rehabilitation Program Information: Cardiac Rehabilitation is important for patients like you who are recovering from a heart problem. Cardiac rehabilitation programs are recognized as integral to the continued care of the patient with coronary heart disease. The cardiac rehabilitation program is designed to optimize a patient's physical, psychological, and social functioning. Health point of care specialist work in cardiac rehabilitation programs and assist you with getting the treatments you need to get stronger and healthier - like exercise, healthy eating habits, and medications. Cardiac rehabilitation has been show to help people with heart problems live longer and have better life enjoyment than people who do not go to cardiac rehabilitation. Please contact the Cardiac Rehabilitation Program at [facility] at in two weeks if you have not heard from them.
--- NOTE | 2020-05-07 05:54 | CRPH1.INSTRU ---
General Education CAD and cardiac anatomy and function:: Patient communicates acknowledgment Explanation of diagnoses and procedures:: Patient communicates acknowledgment Sign/Symptoms of SD:: Patient communicates acknowledgment Antiplatelet therapy: Patient communicates acknowledgment Emergency procedures and activation of EMS: Patient communicates acknowledgment Compliance of all prescribed medications: Patient communicates acknowledgment Dyslipidemia Patient Dyslipidemia Risk Factors Are:: Total Cholesterol, Triglycerides, HDL, LDL Recommendations Include:: Lipid profile not available, Reviewed NCEP/ATP guidelines, Therapeutic Lifestyle Change dietary guidelines Dyslipidemia Response Code:: Patient communicates acknowledgment Heart Disease Recommendations Include:: Educated family members of their risk Heart Disease Response Code:: Patient communicates acknowledgment Diabetes Patient Diabetes Risk Factors Are:: Elevated blood sugars, Post-op hyperglycemia Recommendations Include:: Maintain fasting blood sugars 70-110 md/dL, Maintain HgbA1c of 6% or less, Monitor blood sugar as prescribed, Diabetic dietary guidelines, Decrease/maintain body weight Diabetes:: Patient communicates acknowledgment
== END 2020-05-04 13:48 | disposition home or self-care (01) | DRG 249 ==
LOC: ED 09:15 → ICU 09:34 → PCU 05-03 15:29
PROVIDERS: Admitting Provider Student in an Organized Health Care Education/Training Program; Emergency Provider Emergency Medicine; Referring Provider Specialist; Visit Provider Specialist
DX: I21.19 ST elevation (STEMI) myocardial infarction involving other coronary artery of inferior wall (principal); I25.10 Atherosclerotic heart disease of native coronary artery without angina pectoris; E87.6 Hypokalemia; E11.65 Type 2 diabetes mellitus with hyperglycemia; E78.5 Hyperlipidemia, unspecified; Z79.84 Long term (current) use of oral hypoglycemic drugs; Z79.02 Long term (current) use of antithrombotics/antiplatelets; Z79.82 Long term (current) use of aspirin; Z79.899 Other long term (current) drug therapy
CPT/HCPCS: 80048; 80053; 80061; 82962; 83036; 83735; 84484; 85025; 85027; 85610; 85730; 92921; 92941; 93005; 93306; 93458; 97162; 97165; 97802; 99281; C1757; J7030; Q9957; Q9967; A4216; C1725; C1769; C1876; C1887; C1894; J1327

== ENCOUNTER → 2020-05-13 12:25 | Outpatient (CLI) | payer SELFPAY ==
[2020-05-13 15:28] LABS: BNP,B-Type NATRIURETIC PEPTIDE 102.4 pg/mL (0-100)
[2020-05-13 15:39] LABS: ALB/GLOB Ratio 0.7 RATIO (0.9-2.4); AST(SGOT) 63 U/L (15-37); Alanine Aminotransfer ALT/SGPT 105 U/L (16-61); Albumin, Serum 3.4 g/dL (3.2-5.0); Alkaline Phosphatase 116 U/L (45-117); Anion Gap 7 (5-15); BUN 17 mg/dL (7-18); BUN/Creat Ratio 17.1 RATIO (10-20); Calcium,Total 9.3 mg/dL (8.5-10.1); Chloride 103 mmol/L (98-107); EST Glomerular Filtration Rate 80 mL/min (>60); Est Glom Filt Rate - Afr Amer 97 mL/min (>60); Globulin 5.1 g/dL (2.2-4.2); Glucose 92 mg/dL (74-106); PSA,Total - Annual Screen 0.54 ng/mL (0.00-4.00); Potassium 4.5 mmol/L (3.5-5.1); Protein, Total 8.5 g/dL (6.4-8.2); Sodium Level 135 mmol/L (136-145); Thyroid Stim Hormone (TSH) 0.55 uIU/mL (0.358-3.74)
[2020-05-13 16:51] LABS: Lipase 174 U/L (73-393)
[2020-05-13 16:54] LABS: Vitamin D,25 Hydroxy 16.3 ng/mL
[2020-05-14 09:22] LABS: Hepatitis B Surface Antibody Reactive; Hepatitis C Antibody Non-Reactive (Nonreactive)
== END ==
PROVIDERS: PCP Internal Medicine; Referring Provider Internal Medicine; Visit Provider Internal Medicine
DX: I25.10 Atherosclerotic heart disease of native coronary artery without angina pectoris (principal); E11.9 Type 2 diabetes mellitus without complications; E78.5 Hyperlipidemia, unspecified; R79.89 Other specified abnormal findings of blood chemistry; I25.2 Old myocardial infarction; Z12.5 Encounter for screening for malignant neoplasm of prostate; Z95.5 Presence of coronary angioplasty implant and graft
CPT/HCPCS: 36415; 80053; 82306; 83690; 83880; 84153; 84443; 86706; 86803; G0103

== ENCOUNTER → 2020-06-06 11:23 | Outpatient (CLI) | payer SELFPAY ==
[2020-05-21 13:38] VITALS: BMI 27.3
[2020-06-06 13:29] LABS: ALB/GLOB Ratio 0.8 RATIO (0.9-2.4); AST(SGOT) 16 U/L (15-37); Alanine Aminotransfer ALT/SGPT 27 U/L (16-61); Albumin, Serum 3.7 g/dL (3.2-5.0); Alkaline Phosphatase 103 U/L (45-117); Anion Gap 6 (5-15); BUN 7 mg/dL (7-18); BUN/Creat Ratio 8.9 RATIO (10-20); Calcium,Total 9.3 mg/dL (8.5-10.1); Chloride 104 mmol/L (98-107); Creatinine, Serum 0.79 mg/dL (0.70-1.30); EST Glomerular Filtration Rate 105 mL/min (>60); Est Glom Filt Rate - Afr Amer 127 mL/min (>60); Globulin 4.5 g/dL (2.2-4.2); Glucose 135 mg/dL (74-106); Potassium 3.8 mmol/L (3.5-5.1); Protein, Total 8.2 g/dL (6.4-8.2); Sodium Level 138 mmol/L (136-145)
== END ==
PROVIDERS: PCP Internal Medicine; Visit Provider Internal Medicine
DX: E11.9 Type 2 diabetes mellitus without complications (principal); E78.5 Hyperlipidemia, unspecified; R79.89 Other specified abnormal findings of blood chemistry
CPT/HCPCS: 36415; 80053

== ENCOUNTER → 2020-06-10 15:19 | Outpatient (CLI) | payer SELFPAY ==
[2020-06-10 09:09] VITALS: BMI 27.3
[2020-06-10 16:52] LABS: Hemoglobin A1c 6.7 % (3.8-5.6)
== END ==
PROVIDERS: PCP Internal Medicine; Referring Provider Internal Medicine; Visit Provider Internal Medicine
DX: E11.9 Type 2 diabetes mellitus without complications (principal)
CPT/HCPCS: 36415; 83036

== ENCOUNTER → 2020-11-18 11:07 | Outpatient (CLI) | payer SELFPAY ==
[2020-11-18 10:23] VITALS: BMI 29.0
[2020-11-18 11:52] LABS: AST(SGOT) 19 U/L (15-37); Alanine Aminotransfer ALT/SGPT 36 U/L (16-61); Albumin, Serum 3.9 g/dL (3.2-5.0); Alkaline Phosphatase 91 U/L (45-117); Anion Gap 0 (5-15); BUN 19 mg/dL (7-18); BUN/Creat Ratio 19.3 RATIO (10-20); Bilirubin, Direct 0.13 mg/dL (0.00-0.30); Calcium,Total 9.2 mg/dL (8.5-10.1); Chloride 108 mmol/L (98-107); Cholesterol 132 mg/dL (200); Creatinine, Serum 0.98 mg/dL (0.70-1.30); EST Glomerular Filtration Rate 81 mL/min (>60); Est Glom Filt Rate - Afr Amer 98 mL/min (>60); Globulin 4.1 g/dL (2.2-4.2); Glucose 124 mg/dL (74-106); High Density Lipoprotein 44 mg/dL; Potassium 4.6 mmol/L (3.5-5.1); Sodium Level 138 mmol/L (136-145); Triglycerides 183 mg/dL; Very Low Density Lipoprotein 37 mg/dL (5-40)
== END ==
PROVIDERS: PCP Internal Medicine; Referring Provider Internal Medicine Cardiovascular Disease; Visit Provider Internal Medicine Cardiovascular Disease
DX: E78.5 Hyperlipidemia, unspecified (principal); R06.6 Hiccough; Z95.5 Presence of coronary angioplasty implant and graft
CPT/HCPCS: 36415; 80048; 80061; 80076

== ENCOUNTER 2021-07-21 17:10 | Observation (INO) | payer SELFPAY ==
[2021-07-21] VITALS (9 sets, daily range): BP systolic 108–140; BP diastolic 71–87; PULSE 55–59; RESP 14–21; TEMP 36.6–36.9; O2SAT 96–99; BMI 24.0; BMI 29.0
--- NOTE | 2021-07-21 18:03 | CT_ITS ---
STUDY: CT Abdomen And Pelvis W/ Contrast Injection 07/21/2021 7:58 PM REASON FOR EXAM: Male, 66 years old. NUMBNESS AND TINGLING DOWN RT SIDE,WEAKNESS,SOB X 7 DAYS DIABETES,HEART STENT pain ruq pain Individualized dose optimization techniques were used for this CT. COMPARISON: None. TECHNIQUE: CT Abdomen And Pelvis W/ Contrast Injection IV 100mL Isovue-370 FINDINGS: There are atherosclerotic calcifications of visualized coronary arteries. The visualized portions of the heart are within normal limits. Normal liver. Normal gallbladder and extrahepatic biliary system. Normal spleen. Normal pancreas. Normal bilateral adrenal glands. No acute findings of the right kidney. There are hypodensities in the left kidney. These are consistent for cysts. No follow up required. Focal wall thickening of the antrum of stomach. This can suggest a gastritis. Normal small intestine. Stool throughout the colon. The appendix is visualized and appears normal. There are calcifications of the abdominal aorta. This is consistent for atherosclerotic disease. There is no abdominal aortic aneurysm. Normal inferior vena cava. Subcentimeter mesenteric lymph nodes. Normal urinary bladder. There is enlargement of the prostate gland. There is an umbilical hernia containing fat. Normal osseous structures. IMPRESSION: (NOT LISTED IN ORDER OF SIGNIFICANCE) Gastritis. There is enlargement of the prostate gland. Other findings as above. Electronically Signed: Andrés Valdez MD at 20:05 EDT , CT/Abdomen/Pelvis W IV Cont ONLY
--- NOTE | 2021-07-21 18:03 | EKG12_ITS ---
Test Reason : DYSRHYTHMIA Blood Pressure : / mmHG Vent. Rate : 066 BPM Atrial Rate : 066 BPM P-R Int : 150 ms QRS Dur : 110 ms QT Int : 416 ms P-R-T Axes : 018 -57 020 degrees QTc Int : 436 ms Normal sinus rhythm Left anterior fascicular block Abnormal ECG Confirmed by ZEINA JETER, KRISHNA ([id number]), purchase request editor NEHEMIAH DAVIS ([id number]) on 07/23/2021 10:55:28 AM Referred By: DEMETRICE Confirmed By:KRISHNA PASTRANA MD
--- NOTE | 2021-07-21 18:04 | CT_ITS ---
EXAM: CT ANGIOGRAPHY HEAD AND NECK WITH INTRAVENOUS CONTRAST CLINICAL INDICATION: aphasia, right sided numb/weak TECHNIQUE: [place]/head and neck CT angiography protocol performed with intravenous contrast. This CT exam was performed using one or more of the following dose reduction techniques: automated exposure control, adjustment of the mA and/or kV according to patient size, and/or use of iterative reconstruction technique. This report was created using [employer] report generation technology. MIP reconstructed images were created and reviewed. CONTRAST: IV 100mL Isovue-370 RADIATION DOSE: CTDIvol = 29.39 mGy, DLP = 1481.26 mGy-cm COMPARISON: None. FINDINGS: HEAD: RIGHT ANTERIOR CEREBRAL ARTERY: Unremarkable. No significant stenosis at the visualized segments. Anterior communicating artery is present. No aneurysm. RIGHT MIDDLE CEREBRAL ARTERY: Unremarkable. No significant stenosis at the visualized segments. No aneurysm. RIGHT POSTERIOR CEREBRAL ARTERY: Unremarkable. No occlusion or significant stenosis. No aneurysm. RIGHT INTRACRANIAL INTERNAL CAROTID ARTERY: Unremarkable. No significant stenosis. No dissection or occlusion. RIGHT INTRACRANIAL VERTEBRAL ARTERY: Unremarkable. No significant stenosis. No dissection or occlusion. LEFT ANTERIOR CEREBRAL ARTERY: Unremarkable. No significant stenosis at the visualized segments. No aneurysm. LEFT MIDDLE CEREBRAL ARTERY: Unremarkable. No significant stenosis at the visualized segments. No aneurysm. LEFT POSTERIOR CEREBRAL ARTERY: Unremarkable. No occlusion or significant stenosis. No aneurysm. LEFT INTRACRANIAL INTERNAL CAROTID ARTERY: Unremarkable. No significant stenosis. No dissection or occlusion. LEFT INTRACRANIAL VERTEBRAL ARTERY: Unremarkable. No significant stenosis. No dissection or occlusion. BASILAR ARTERY: Unremarkable. No significant stenosis. No aneurysm. GREAT VESSELS OF AORTIC ARCH: Unremarkable. Normal anatomy, patent. OTHER VASCULATURE: There are no acute findings of the right and left internal carotid artery. ALL ABOVE CRITERIA BY NASCET. No vascular malformation. NECK: RIGHT COMMON CAROTID ARTERY: Unremarkable. No significant stenosis. No dissection or occlusion. RIGHT EXTRACRANIAL INTERNAL CAROTID ARTERY: Unremarkable. No significant stenosis. No dissection or occlusion. RIGHT EXTERNAL CAROTID ARTERY: Unremarkable. No occlusion. RIGHT EXTRACRANIAL VERTEBRAL ARTERY: Unremarkable. No significant stenosis. No dissection or occlusion. LEFT COMMON CAROTID ARTERY: Unremarkable. No significant stenosis. No dissection or occlusion. LEFT EXTRACRANIAL INTERNAL CAROTID ARTERY: Unremarkable. No significant stenosis. No dissection or occlusion. LEFT EXTERNAL CAROTID ARTERY: Unremarkable. No occlusion. LEFT EXTRACRANIAL VERTEBRAL ARTERY: Unremarkable. No significant stenosis. No dissection or occlusion. LUNG APICES: Unremarkable as visualized. HEAD and NECK: BONES/JOINTS: There are degenerative findings of the cervical spine. No discrete lytic or blastic abnormalities. SOFT TISSUES: Unremarkable. OTHER FINDINGS: There are no acute findings of the [place] without a demonstrated aneurysm or hemodynamically significant stenosis. ALL ABOVE CRITERIA BY NASCET. CAROTID STENOSIS REFERENCE USING NASCET CRITERIA: % ICA stenosis = (1 - narrowest ICA diameter/diameter of distal cervical ICA) x 100. Mild - <50% stenosis. Moderate - 50-69% stenosis. Severe - 70-94% stenosis. Near occlusion - 95-99% stenosis. Occluded - 100% stenosis. CT/CTA Head AND Neck W/ Contrast IMPRESSION: 1. There are no acute findings of the right and left internal carotid artery. ALL ABOVE CRITERIA BY NASCET. 2. There are no acute findings of the [place] without a demonstrated aneurysm or hemodynamically significant stenosis. ALL ABOVE CRITERIA BY NASCET. Electronically Signed: Andrés Valdez MD at 19:58 EDT ,
--- NOTE | 2021-07-21 18:05 | EDS_ITS ---
HPI History of Present Illness Chief Complaint: Shortness of Breath Informant: patient and family Onset/Context/Timing Onset: Weeks (1) Context: - (unclear onset) Timing: Continuous Quality and Location: Positive for Right Arm Parasthesia, Right Leg Parasthesia, Right Arm Weakness, Slurred Speech and Expressive Aphasia Current Severity: Moderate Maximum Severity: Moderate Worsened by: nothing Relieved by: nothing Narrative Narrative: Past week patient has been having numbness on his right side including the right lower face, arm, leg. He has been dropping things with his right hand. He has had trouble speaking. He also has had intermittent right upper quadrant pain and the feeling like something is coming up unsure if this means nausea but he has not been vomiting. Also has been associated with hiccups. This is all been for about the past week. About 8 or 9 days ago, he started a course of prednisone for his left knee. He has had no falls or injuries. He states that he started getting the hiccups and numbness on his right side after starting this medication, he took it for 3 to 4 days and then stopped. His left knee is been better ever since then. He is Korean-speaking only. His family is here and are comfortable translating for him, they state that because of his trouble speaking they have had trouble understanding his Korean recently including today while he is providing history. 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) STEMI (ST elevation myocardial infarction) (05/02/20) Type 2 diabetes mellitus Home Medications metformin 500 mg tablet 500 mg PO BID #180 tab 09/22/20 [Rx Last Taken Unknown] aspirin 81 mg tablet,delayed release 81 mg PO DAILY@0800 #90 tab 06/01/21 [Rx Last Taken Unknown] atorvastatin 40 mg tablet 40 mg PO QHS #90 tab 06/01/21 [Rx Last Taken Unknown] clopidogrel 75 mg tablet 75 mg PO DAILY #90 tab 06/01/21 [Rx Last Taken Unknown] lisinopril 5 mg tablet 5 mg PO DAILY #90 tab 06/01/21 [Rx Last Taken Unknown] metoprolol tartrate 25 mg tablet 25 mg PO BID #180 tab 06/01/21 [Rx Last Taken Unknown] prednisone 20 mg tablet 20 mg PO BID #10 tab 07/13/21 [Rx Last Taken Unknown] Allergy/AdvReac Type Severity Reaction Status Date / Time No Known Allergies Allergy Verified 07/21/21 17:11 Family History Father Brain aneurysm Surgical History History of coronary artery stent placement (05/02/20) Social History Smoking Status: Never smoker ROS ROS ED Review of Systems ROS Unobtainable: other Details: Due to expressive aphasia Constitutional Constitutional ED: Denies chills or fever(s) Eyes Eyes: Denies change in vision or diplopia ENT ENT ED: Reports tinnitus Respiratory/Chest Respiratory/Chest: Denies cough Gastrointestinal Gastrointestinal: Denies diarrhea or vomiting Musculoskeletal Musculoskeletal: Denies back pain or neck pain Integumentary Denies abscess or rash Neurologic Neurologic: Reports numbness, weakness and other Details: Headaches off and on not currently ; Denies loss of vision Psychiatric Psychiatric: Denies anxiety or suicidal thoughts EXAM Physical Exam Const Vital Signs: 07/21/21 17:11 07/21/21 17:39 07/21/21 18:26 Temperature 98.4 F Temperature Source Oral Pulse Rate 58 L Respiratory Rate 18 Respiratory Effort Normal Non-Labored Respiratory Depth Normal Respiratory Pattern Normal Blood Pressure 139/87 H Blood Pressure Mean 104 Pulse Ox 98 97 Oxygen Delivery Method Room Air Room Air 07/21/21 21:17 Temperature Temperature Source Pulse Rate 59 L Respiratory Rate 16 Respiratory Effort Respiratory Depth Respiratory Pattern Blood Pressure 108/75 Blood Pressure Mean 86 Pulse Ox 98 Oxygen Delivery Method Room Air Positive well nourished and well developed General Appearance ED: well developed and NAD HEENT Reports moist mucous membranes normocephalic and atraumatic Eyes PERRL and EOMs intact bilaterally Neck full ROM and supple Resp normal respiratory effort and clear to auscultation bilaterally Cardio regular rate, regular rhythm and no murmurs GI non-distended GI Narrative: Mildly tender right upper quadrant and epigastrium, no pulsatile mass, no guarding or rebound tenderness negative [place]. No palpable masses. Auscultation: normoactive bowel sounds Palpation: soft Back/Spine no CVA tenderness General Back: other FROM Extremity normal to inspection General Extremety ED: Negative for edema, pulses abnormal or tenderness General Extremity: Negative for edema or pulses abnormal Neuro CN's II-XII intact bilaterally Sensorium / Orientation: awake and alert Skin no rashes or lesions noted and no wounds STROKE Vital Signs/Narrative: Vital Signs Pulse Resp BP Pulse Ox 07/21/21 21:17 59 L 16 108/75 98 07/21/21 18:26 97 Inital Vital Signs reviewed: Yes NIHSS Initial: 1a Level of Consciousness: 0 1b LOC Questions (Score 2 if aphasic/stupor): 2 1c LOC Commands (Only score 1st attempt): 0 2 Best Gaze (If aphasic, use reflexive mvmts.): 0 3 Visual: 0 4 Facial Palsy: 0 5 Motor Arm Right (UN = amputation/fusion): 0 5 Motor Arm Left: 0 6 Motor Leg Right: 1 6 Motor Leg Left: 0 7 Limb ataxia (Only + if out of proportion): 0 8 Sensory (Aphasia/stupor=0 or 1, coma=2): 1 9 Best Language: 2 10 Dysarthria (mute, coma=2, intubated=UN): 1 11 Extinction and Inattention (only scored if +): 0 Total Score: 7 MDM MDM MDM Narrative Medical decision making narrative: Stroke work-up is unremarkable at this time. Radiologist did not comment on findings on the plain CT. CT angiography was performed because of his aphasia and shows no LVO or signs of carotid stenosis. Given his symptoms, it is unknown if this is ischemic stroke or something else, but I think he should be admitted for further work-up. He is still having hiccups off and on according to family although I have not witnessed them, this is why I held off on giving him any Thorazine or other medications. His CT of the abdomen/pelvis only showed gastritis, so he was given Protonix and discussed with the hospitalist. Lab Data Attestation: I reviewed the patient's lab results. Labs: Laboratory Results - last 24 hr 07/21/21 07/21/21 07/21/21 18:24 18:24 18:24 WBC 9.0 RBC 5.32 Hgb 14.9 Hct 44.8 MCV 84.2 MCH 28.0 MCHC 33.3 RDW Std Deviation 38.6 RDW Coeff of Chris 12.7 Plt Count 174 MPV 12.2 H Immature Gran % (Auto) 0.200 Neut % (Auto) 74.0 H Lymph % (Auto) 20.0 [place] % (Auto) 4.8 Eos % (Auto) 0.6 Baso % (Auto) 0.4 Absolute Neuts (auto) 6.7 Absolute Lymphs (auto) 1.81 Nucleated RBC % 0 PT 13.4 INR 1.0 APTT 25.1 Sodium 132 L Potassium 4.0 Chloride 97 L Carbon Dioxide 27.0 Anion Gap 8 BUN 15 Creatinine 1.14 Estim Creat Clear Calc 58.79 Est GFR (MDRD) Af Amer 82 Est GFR (MDRD) Non-Af 68 BUN/Creatinine Ratio 13.2 Glucose 404 H Calcium 9.3 Total Bilirubin 0.90 AST 16 ALT 28 Alkaline Phosphatase 114 Troponin I High Sens 11 Total Protein 7.7 Albumin 3.8 Globulin 3.9 Albumin/Globulin Ratio 1.0 Lipase 113 Radiography Diagnostic Testing: Clinical Impression(s) from Imaging Studies Abdomen/Pelvis CT 07/21/21 18:03 Head/Neck CTA 07/21/21 18:04 IMPRESSION: 1. There are no acute findings of the right and left internal carotid artery. ALL ABOVE CRITERIA BY NASCET. 2. There are no acute findings of the [place] without a demonstrated aneurysm or hemodynamically significant stenosis. ALL ABOVE CRITERIA BY NASCET. Electronically Signed: Andrés Valdez MD at 19:58 EDT , Chest X-Ray 07/21/21 19:28 IMPRESSION: There are no acute findings. Electronically Signed: Andrés Valdez MD at 20:05 EDT , EKG Initial EKG: Attestation: I personally reviewed and interpreted this EKG as follows: Interpretation: Sinus Rhythm, No Acute Injury Pattern and LAFB Prior EKG tracings: available for review Prior: Unchanged Stroke Documentation Questions Stroke Team Activated: No (due to timing) Was Patient considered for Endovascular Intervention?: No-CTA negative, determined not to be an endovascular candidate IV Alteplase (t-PA) Administered: No (due to timing) Discharge Plan Dx/Rx/DC Orders Clinical Impression: Expressive aphasia, Hiccups, Numbness on right side, Acute gastritis Disposition Disposition: Acute Care Hospital [facility]
[2021-07-21] MEDS: 0.9% Normal Saline 1,000 ML 100 ML IV (18:21)
[2021-07-21] MEDS: Ondansetron 4 MG/2 ML Vial IV (18:21)
[2021-07-21] MEDS: Morphine 4 MG/ML Syringe IV (18:21)
[2021-07-21 18:31] LABS: Absolute Lymphocyte Count 1.81 X10^3/uL (0.83-4.51); Absolute Neutrophil Count 6.7 X10^3/uL (2.0-7.7); Basophil# 0.04 X10^3/uL; Basophil% 0.4 % (0-1); Eosinophil# 0.05 X10^3/uL; Eosinophils% 0.6 % (0-5); Hematocrit 44.8 % (40-54); Hemoglobin 14.9 g/dL (13.0-16.5); Lymphocyte # 1.81 X10^3/ul (0.83-4.51); Mean Corp Hgb Conc 33.3 g/dL (32-36); Mean Corpuscular Volume 84.2 fL (80-94); Mean Platelet Vol. 12.2 fl (6.2-12.0); Monocyte# 0.43 X10^3/uL; Monocyte% 4.8 % (0-10); NRBC Flagged by Analyzer 0 % (0-5); Neutrophil # 6.68 X10^3/uL (2.7-7.7); Platelet Count 174 K/mm3 (150-450); RBC Distribution Width CV 12.7 % (11.6-14.6); RBC Distribution Width SD 38.6 fl (35.1-43.9); Red Blood Count 5.32 M/mm3 (4.6-6.2)
[2021-07-21 18:40] LABS: Prothrombin Time (Protime)PT. 13.4 SECONDS (11.7-14.9)
[2021-07-21 18:41] LABS: Partial Thromboplast Time 25.1 Seconds (24.1-36.2)
[2021-07-21 18:55] LABS: AST(SGOT) 16 U/L (15-37); Alanine Aminotransfer ALT/SGPT 28 U/L (16-61); Albumin, Serum 3.8 g/dL (3.2-5.0); Alkaline Phosphatase 114 U/L (45-117); Anion Gap 8 (5-15); BUN 15 mg/dL (7-18); BUN/Creat Ratio 13.2 RATIO (10-20); Calcium,Total 9.3 mg/dL (8.5-10.1); Chloride 97 mmol/L (98-107); Creatinine, Serum 1.14 mg/dL (0.70-1.30); EST Glomerular Filtration Rate 68 mL/min (>60); Est Glom Filt Rate - Afr Amer 82 mL/min (>60); Estimated Creatinine Clearance 58.79 ml/min; Globulin 3.9 g/dL (2.2-4.2); Glucose 404 mg/dL (74-106); Lipase 113 U/L (73-393); Protein, Total 7.7 g/dL (6.4-8.2); Sodium Level 132 mmol/L (136-145); Troponin-I HS 11 pg/mL (3.0-78.0)
--- NOTE | 2021-07-21 19:28 | RAD_ITS ---
STUDY: X-RAY CHEST REASON FOR EXAM: Male, 66 years old. CHEST PAIN Neuro deficit, acute, stroke suspected TECHNIQUE: XR Chest 1 View COMPARISON: None FINDINGS: There is no demonstrated pleural abnormality. Normal size heart. Normal mediastinum and paige. Normal visualized pulmonary arteries. Normal visualized aortic arch and descending thoracic aorta. There are diffuse degenerative changes of the visualized thoracic spine. Normal visualized ribs, clavicles, and shoulders. There is no demonstrated abnormality of the visualized soft tissue structures of the upper abdomen. RAD/Chest 1 View IMPRESSION: There are no acute findings. Electronically Signed: Andrés Valdez MD at 20:05 EDT ,
[2021-07-21] MEDS: Pantoprazole Sodium 40 MG Tablet PO (22:06)
--- NOTE | 2021-07-21 22:35 | PCM.HP.STD ---
Documented by User: KI Robles 07/21/21 22:47 HPI - General General Date of Admission: 07/21/21 Date of Service: 07/21/21 Chief Complaint: Numbness and tingling HPI Narrative NEIL GARCIA, is a 66 M who presents with complaints of right arm and right leg paresthesias, right arm weakness, slurred speech and expressive aphasia. Patient states that he has been having numbness on his right side including his face arm and leg x1 week. Patient states that he often drops things due to weakness in his right hand. Patient also states that he has had GI discomfort but denies nausea and vomiting. Patient reports that he started prednisone approximately 8 to 9 days ago for left knee pain. Patient states that he began feeling numbness after starting the prednisone and stopped taking the prednisone after 4 days. Patient is Grenadian-speaking only and his family is at bedside. Patient's son states that it is often difficult to understand what he is saying due to the slurred aspect of his speech. Patient family reports a medical history including CAD, diabetes mellitus type 2, hyperlipidemia, history of STEMI. 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) STEMI (ST elevation myocardial infarction) (05/02/20) Type 2 diabetes mellitus Home Medications metformin 500 mg tablet 500 mg PO BID #180 tab 09/22/20 [Rx Last Taken Unknown] aspirin 81 mg tablet,delayed release 81 mg PO DAILY@0800 #90 tab 06/01/21 [Rx Last Taken Unknown] atorvastatin 40 mg tablet 40 mg PO QHS #90 tab 06/01/21 [Rx Last Taken Unknown] clopidogrel 75 mg tablet 75 mg PO DAILY #90 tab 06/01/21 [Rx Last Taken Unknown] lisinopril 5 mg tablet 5 mg PO DAILY #90 tab 06/01/21 [Rx Last Taken Unknown] metoprolol tartrate 25 mg tablet 25 mg PO BID #180 tab 06/01/21 [Rx Last Taken Unknown] prednisone 20 mg tablet 20 mg PO BID #10 tab 07/13/21 [Rx Last Taken Unknown] Allergy/AdvReac Type Severity Reaction Status Date / Time No Known Allergies Allergy Verified 07/21/21 17:11 Family History Father Brain aneurysm Surgical History History of coronary artery stent placement (05/02/20) Social History Smoking Status: Never smoker ROS Constitutional Constitutional: Denies anorexia, chills, fatigue, fever(s), malaise or weakness Cardiovascular Cardiovascular: Denies chest pain, orthopnea, palpitations or syncope Respiratory/Chest Respiratory/Chest: Denies cough, shortness of breath at rest or shortness of breath with exertion Gastrointestinal Gastrointestinal: Reports abdominal pain and dyspepsia; Denies constipation, diarrhea, nausea or vomiting Genitourinary Genitourinary: Denies dysuria Musculoskeletal Musculoskeletal: Denies back pain, extremity pain, joint pain, joint stiffness or joint swelling Integumentary Integumentary: Denies dry skin Neurologic Neurologic: Reports abnormal speech, focal weakness, numbness and tingling; Denies abnormal gait, confusion or dizziness Psychiatric Psychiatric: Denies anxiety or depression Endocrine Endocrinology: Denies change in body appearance Hematologic/Lymphatic Hematologic/Lymphatic: Denies anemia Vital Signs Vital Signs Vital Signs: 07/21/21 17:11 07/21/21 17:39 07/21/21 18:26 Temperature 98.4 F Temperature Source Oral Pulse Rate 58 L Respiratory Rate 18 Respiratory Effort Normal Non-Labored Respiratory Depth Normal Respiratory Pattern Normal Blood Pressure 139/87 H Blood Pressure Mean 104 Pulse Ox 98 97 Oxygen Delivery Method Room Air Room Air 07/21/21 21:17 07/21/21 22:02 Temperature 98 F Temperature Source Temporal Pulse Rate 59 L 59 L Respiratory Rate 16 16 Respiratory Effort Respiratory Depth Respiratory Pattern Blood Pressure 108/75 128/71 H Blood Pressure Mean 86 90 Pulse Ox 98 96 Oxygen Delivery Method Room Air Room Air Weight Weight: 153 lb 10.595 oz Body Mass Index (BMI) 24.0 Physical Exam Const alert, oriented x3 and no apparent distress General Appearance: cooperative HEENT normocephalic and head/scalp atraumatic Eyes conjunctivae normal and no scleral icterus Neck no lymphadenopathy and supple General: trachea midline Resp normal respiratory effort, normal air movement and clear to auscultation bilaterally Cardio regular rate, regular rhythm, S1 normal heart sound, S2 normal heart sound and peripheral pulses 2+ throughout GI normal to inspection, nondistended, normoactive bowel sounds and soft to palpation Palpation: tender RUQ Extremity normal capillary refill and no clubbing, cyanosis or edema General Extremity: no tenderness to palpation of joints or extremities Skin General Skin Exam: no breakdown and turgor normal Lesions: no lesions Rashes: no rashes Neuro oriented x3 and moves all extremities Speech: speech abnormal Details: Positive for slurred and expressive aphasia Sensory Exam: extremities light-touch: decreased (Right upper and lower extremity) and double simultaneous stimulation for sensation abnormal Positive for left-sided extinction Psych cooperative and affect normal Appearance: appropriate Results Lab / Micro Data Result Diagrams: 07/21/21 18:24 07/21/21 18:24 Labs: Laboratory Results - last 24 hr 07/21/21 18:24: WBC 9.0, RBC 5.32, Hgb 14.9, Hct 44.8, MCV 84.2, MCH 28.0, MCHC 33.3, RDW Std Deviation 38.6, RDW Coeff of Chris 12.7, Plt Count 174, MPV 12.2 H, Immature Gran % (Auto) 0.200, Neut % (Auto) 74.0 H, Lymph % (Auto) 20.0, Cloud % (Auto) 4.8, Eos % (Auto) 0.6, Baso % (Auto) 0.4, Absolute Neuts (auto) 6.7, Absolute Lymphs (auto) 1.81, Nucleated RBC % 0 07/21/21 18:24: PT 13.4, INR 1.0, APTT 25.1 07/21/21 18:24: Sodium 132 L, Potassium 4.0, Chloride 97 L, Carbon Dioxide 27.0, Anion Gap 8, BUN 15, Creatinine 1.14, Estim Creat Clear Calc 58.79, Est GFR (MDRD) Af Amer 82, Est GFR (MDRD) Non-Af 68, BUN/Creatinine Ratio 13.2, Glucose 404 H, Calcium 9.3, Total Bilirubin 0.90, AST 16, ALT 28, Alkaline Phosphatase 114, Troponin I High Sens 11, Total Protein 7.7, Albumin 3.8, Globulin 3.9, Albumin/Globulin Ratio 1.0, Lipase 113 Radiology Impression Abdomen/Pelvis CT 07/21/21 18:03 Head/Neck CTA 07/21/21 18:04 IMPRESSION: 1. There are no acute findings of the right and left internal carotid artery. ALL ABOVE CRITERIA BY NASCET. 2. There are no acute findings of the [place] without a demonstrated aneurysm or hemodynamically significant stenosis. ALL ABOVE CRITERIA BY NASCET. Electronically Signed: Andrés Valdez MD at 19:58 EDT , Chest X-Ray 07/21/21 19:28 IMPRESSION: There are no acute findings. Electronically Signed: Andrés Valdez MD at 20:05 EDT , Assessment & Plan Assessment/Plan (1) Expressive aphasia: (2) Numbness on right side: PLAN: 1. Expressive aphasia and right-sided extinction with decreased sensation, suspect CVA -Admit to PCU -MRI brain ordered for a.m. -N.p.o. pending dysphagia screening -Echocardiogram in a.m -NIH and vital sign monitoring per protocol. -PT, OT, ST to eval and treat -CBC, BMP, lipid panel ordered for a.m. 2. CAD -Continue Plavix, aspirin 3. Hypertension -Continue metoprolol, lisinopril -Vital signs per protocol, currently stable -As needed labetalol and hydralazine ordered 4. Diabetes mellitus type 2 -ACH S blood sugars with sliding scale insulin ordered -Hold p.o. medications 5. Hyperlipidemia -Continue atorvastatin DVT prophylaxis-not indicated This patient was seen by KI Robles under the supervision of Dr. Reed. 30 minutes spent in clinical coordination of patient's plan of care. Documented by User: Dr. 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) STEMI (ST elevation myocardial infarction) (05/02/20) Type 2 diabetes mellitus Home Medications metformin 500 mg tablet 500 mg PO BID #180 tab 09/22/20 [Rx Last Taken Unknown] aspirin 81 mg tablet,delayed release 81 mg PO DAILY@0800 #90 tab 06/01/21 [Rx Last Taken Unknown] atorvastatin 40 mg tablet 40 mg PO QHS #90 tab 06/01/21 [Rx Last Taken Unknown] clopidogrel 75 mg tablet 75 mg PO DAILY #90 tab 06/01/21 [Rx Last Taken Unknown] lisinopril 5 mg tablet 5 mg PO DAILY #90 tab 06/01/21 [Rx Last Taken Unknown] metoprolol tartrate 25 mg tablet 25 mg PO BID #180 tab 06/01/21 [Rx Last Taken Unknown] prednisone 20 mg tablet 20 mg PO BID #10 tab 07/13/21 [Rx Last Taken Unknown] Allergy/AdvReac Type Severity Reaction Status Date / Time No Known Allergies Allergy Verified 07/21/21 17:11 Family History Father Brain aneurysm Surgical History History of coronary artery stent placement (05/02/20) Social History Smoking Status: Never smoker Results Lab / Micro Data Result Diagrams: 07/21/21 18:24 07/21/21 18:24 Charges/Coding Addendum Addendum: Dr. Reed: I personally reviewed the chart and examined the patient, and agree with the above findings. 66-year-old male presents to the hospital with aphasia this been going on for about a week. He is [place]-speaking only however family is bedside to help interpret, and they even have trouble understanding some of his Grenadian. It seems that he has been having right-sided numbness and tingling in his face arm and leg for about a week now. They did a bedside swallow in the ED which was unremarkable. Head and neck CTA did not show any significant stenosis, abdominal CT was negative however this was obtained secondary to right upper quadrant abdominal pain periodically. Chest x-ray was normal. It does appear that symptoms started around the time that he was taking prednisone for knee pain however he stopped this a few days into it secondary to the numbness and tingling. He is already on aspirin and Plavix as well as Lipitor and no signs of A. fib at the moment. We will continue with telemetry monitoring and obtain an echo and an MRI in the morning for further characterization and evaluation. Clinical time spent in all aspects of patient care: 40 minutes Visit Charges OBSV E&M: 64316 Initial observation care L3
--- NOTE | 2021-07-21 23:04 | ECHOD_ITS ---
Reason For Study: TIA/CVA Procedure This was a 2D Doppler, Color Flow transthoracic echocardiogram. The exam was of adequate technical quality. Exam performed portable in patient room. Left Ventricle Normal LV size. Left ventricular systolic function is normal. The estimated ejection fraction is 65 %. No evidence for diastolic dysfunction. No regional wall motion abnormalities noted. Right Ventricle Normal RV size. Normal systolic function. Atria Normal left atrium. Normal right atrium. Hypermobile atrial septum. Aneurysmal atrial septum. Agitated saline contrast study demonstrates a late and very faintly positive right to left interatrial shunt appearing potential compatible with a small PFO/ASD. Mitral Valve There is no mitral annular calcification. Mild diffuse mitral valve thickening. Trivial mitral valve insufficiency. Tricuspid Valve Normal tricuspid valve. Trivial tricuspid valve insufficiency. Right ventricular systolic pressure estimated to be 31 mmHg. Aortic Valve Trisinus/trileaflet aortic valve. Normal aortic valve. Pulmonic Valve The pulmonic valve is not well visualized. Trivial pulmonic valve insufficiency. Great Vessels Normal sized aortic root. Pericardium/Pleural No pericardial effusion. Medication Performed a rapid injection of agitated mix of 9 cc saline and 1cc air to assess for atrial septal defect. MMode/2D Measurements & Calculations LVIDd: 4.2 cm IVSd: 1.3 cm Ao root diam: 3.3 cm LVIDs: 2.9 cm LVPWd: 0.73 cm RVDd: 3.1 cm FS: 30.9 % LAV(MOD-bp): 42.5 ml LVAd ap4: 26.3 cm2 LVAd ap2: 22.6 cm2 LAV(MOD-bp) Indexed: 25.2 ml/m2 LVLd ap4: 8.1 cm LVLd ap2: 6.3 cm LAV(MOD-sp2): 52.9 ml EDV(MOD-sp4): 73.2 ml EDV(MOD-sp2): 65.2 ml LAV(MOD-sp4): 29.6 ml EDV(sp4-el): 72.8 ml EDV(sp2-el): 68.9 ml LVAs ap4: 14.4 cm2 LVAs ap2: 12.3 cm2 LVLs ap4: 6.5 cm LVLs ap2: 5.3 cm ESV(MOD-sp4): 28.2 ml ESV(MOD-sp2): 23.6 ml ESV(sp4-el): 27.0 ml ESV(sp2-el): 24.2 ml EF(MOD-sp4): 61.5 % EF(MOD-sp2): 63.8 % EF(sp4-el): 62.9 % SV(MOD-sp4): 45.0 ml SV(MOD-sp2): 41.6 ml SV(sp4-el): 45.8 ml LA A4 area: 13.3 cm2 LA dimension(2D): 3.5 cm RA A4 area: 10.2 cm2 Doppler Measurements & Calculations MV E max adebayo: 55.0 cm/sec Ao V2 max: 136.8 cm/sec LV V1 max: 106.8 cm/sec MV A max adebayo: 70.1 cm/sec Ao max P.5 mmHg LV V1 max P.6 mmHg MV E/A: 0.78 PA V2 max: 98.0 cm/sec TR max adebayo: 264.3 cm/sec TR max P.9 mmHg ECHO/Echo Complete Interpretation Summary Left ventricular systolic function is normal. The estimated ejection fraction is 65 %. Mild diffuse mitral valve thickening. Trivial mitral valve insufficiency. Trivial tricuspid valve insufficiency. Trivial pulmonic valve insufficiency. Right ventricular systolic pressure estimated to be 31 mmHg. No evidence for diastolic dysfunction. Hypermobile atrial septum. Aneurysmal atrial septum. Agitated saline contrast study demonstrates a late and very faintly positive ri ght to left interatrial shunt appearing potential compatible with a small PFO/ASD. Ordering Physician: Reji Reed Referring Physician: Lillie Sánchez M.D. Performed By: Fern Spivey RCS
[2021-07-21] MEDS: predniSONE 20 MG Tablet PO (23:47)
[2021-07-21] MEDS: Atorvastatin Calcium 40 MG Tablet PO (23:47)
[2021-07-22] VITALS (12 sets, daily range): BP systolic 96–147; BP diastolic 62–81; PULSE 51–66; RESP 14–18; TEMP 36.3–36.8; O2SAT 94–99; BMI 29.0
[2021-07-22 05:19] LABS: Absolute Lymphocyte Count 1.57 X10^3/uL (0.83-4.51); Absolute Neutrophil Count 7.7 X10^3/uL (2.0-7.7); Basophil# 0.03 X10^3/uL; Basophil% 0.3 % (0-1); Eosinophil# 0.01 X10^3/uL; Eosinophils% 0.1 % (0-5); Hemoglobin 13.7 g/dL (13.0-16.5); Lymphocyte # 1.57 X10^3/ul (0.83-4.51); Lymphocyte % 16.6 % (19-41); Mean Corp Hgb Conc 33.4 g/dL (32-36); Mean Corpuscular Hgb 28.1 pg (27.0-32.0); Mean Platelet Vol. 12.1 fl (6.2-12.0); Monocyte# 0.16 X10^3/uL; Monocyte% 1.7 % (0-10); NRBC Flagged by Analyzer 0 % (0-5); Neutrophil # 7.67 X10^3/uL (2.7-7.7); Neutrophil % 81.1 % (47-70); Platelet Count 165 K/mm3 (150-450); RBC Distribution Width CV 12.6 % (11.6-14.6); RBC Distribution Width SD 38.5 fl (35.1-43.9); Red Blood Count 4.88 M/mm3 (4.6-6.2); White Blood Count 9.5 K/mm3 (4.4-11.0)
[2021-07-22 05:38] LABS: Anion Gap 9 (5-15); BUN 13 mg/dL (7-18); BUN/Creat Ratio 13.6 RATIO (10-20); Calcium,Total 8.5 mg/dL (8.5-10.1); Chloride 100 mmol/L (98-107); Cholesterol 142 mg/dL (200); Creatinine, Serum 0.96 mg/dL (0.70-1.30); EST Glomerular Filtration Rate 84 mL/min (>60); Est Glom Filt Rate - Afr Amer 101 mL/min (>60); Estimated Creatinine Clearance 55.24 ml/min; Glucose 363 mg/dL (74-106); High Density Lipoprotein 36 mg/dL; Potassium 4.5 mmol/L (3.5-5.1); Sodium Level 134 mmol/L (136-145); Triglycerides 128 mg/dL; Very Low Density Lipoprotein 26 mg/dL (5-40)
[2021-07-22] MEDS: Insulin Lispro 100 UNIT/ML INSULN.PEN SC ×4 (08:19→21:50)
[2021-07-22] MEDS: predniSONE 20 MG Tablet PO ×2 (08:21→17:37)
[2021-07-22] MEDS: Clopidogrel Bisulfate 75 MG Tablet PO (08:21)
[2021-07-22] MEDS: Lisinopril 5 MG Tablet PO (08:21)
[2021-07-22] MEDS: Aspirin E.C. 81 MG Tablet PO (08:21)
--- NOTE | 2021-07-22 08:28 | NURSING ---
Casket Upholsterer Ipad used to complete assessment and NIH. Casket Upholsterer reported difficulty understanding patient due to hard time getting words out and repeating self. Patient c/o RT side arm and leg numbness. See NIH assessment. Son also at bedside to help with communication.
[2021-07-22 08:30] LABS: Bedside Glucose 353 mg/dL (74-106)
--- NOTE | 2021-07-22 13:52 | PN.HOSP_ITS ---
Subjective Subjective Patient seen and examined. His son was by his bedside interpreted for him as patient could only speak [place]. He is still complained of right-sided numbness and tingling which had not improved. He denied any slurred speech, blurred vision, headache, or any focal weakness. Review of systems otherwise negative. He is awaiting an MRI. Objective Data Objective Data Vital Signs: Vital Signs Temp Pulse Resp BP Pulse Ox 97.6 F L 60 18 97/66 98 07/22/21 12:00 07/22/21 12:10 07/22/21 12:00 07/22/21 12:00 07/22/21 12:00 Oxygen Delivery Method Room Air Weight: 153 lb 14.122 oz Body Mass Index (BMI) 29.0 Intake & Output: Intake and Output for Last 24 Hours 07/20/21 07/21/21 07/22/21 23:59 23:59 23:59 Intake Total 1940 / 1940 Output Total 775 / 775 Balance 1165 / 1165 Lab / Micro Data Result Diagrams: 07/22/21 05:10 07/22/21 05:10 Labs: Laboratory Results - last 24 hr 07/21/21 18:24: WBC 9.0, RBC 5.32, Hgb 14.9, Hct 44.8, MCV 84.2, MCH 28.0, MCHC 33.3, RDW Std Deviation 38.6, RDW Coeff of Chris 12.7, Plt Count 174, MPV 12.2 H, Immature Gran % (Auto) 0.200, Neut % (Auto) 74.0 H, Lymph % (Auto) 20.0, Foster % (Auto) 4.8, Eos % (Auto) 0.6, Baso % (Auto) 0.4, Absolute Neuts (auto) 6.7, Absolute Lymphs (auto) 1.81, Nucleated RBC % 0 07/21/21 18:24: PT 13.4, INR 1.0, APTT 25.1 07/21/21 18:24: Sodium 132 L, Potassium 4.0, Chloride 97 L, Carbon Dioxide 27.0, Anion Gap 8, BUN 15, Creatinine 1.14, Estim Creat Clear Calc 58.79, Est GFR (MDRD) Af Amer 82, Est GFR (MDRD) Non-Af 68, BUN/Creatinine Ratio 13.2, Glucose 404 H, Calcium 9.3, Total Bilirubin 0.90, AST 16, ALT 28, Alkaline Phosphatase 114, Troponin I High Sens 11, Total Protein 7.7, Albumin 3.8, Globulin 3.9, Albumin/Globulin Ratio 1.0, Lipase 113 07/22/21 05:10: WBC 9.5, RBC 4.88, Hgb 13.7, Hct 41.0, MCV 84.0, MCH 28.1, MCHC 33.4, RDW Std Deviation 38.5, RDW Coeff of Chris 12.6, Plt Count 165, MPV 12.1 H, Immature Gran % (Auto) 0.200, Neut % (Auto) 81.1 H, Lymph % (Auto) 16.6 L, Foster % (Auto) 1.7, Eos % (Auto) 0.1, Baso % (Auto) 0.3, Absolute Neuts (auto) 7.7, Absolute Lymphs (auto) 1.57, Nucleated RBC % 0 07/22/21 05:10: Sodium 134 L, Potassium 4.5, Chloride 100, Carbon Dioxide 25.0, Anion Gap 9, BUN 13, Creatinine 0.96, Estim Creat Clear Calc 55.24, Est GFR (MDRD) Af Amer 101, Est GFR (MDRD) Non-Af 84, BUN/Creatinine Ratio 13.6, Glucose 363 H, Calcium 8.5, Triglycerides 128, Cholesterol 142, LDL Cholesterol 80, VLDL Cholesterol 26, HDL Cholesterol 36 L 07/22/21 08:18: POC Glucose 353 H Radiography Diagnostic Testing: Radiology Impression Abdomen/Pelvis CT 07/21/21 18:03 Head/Neck CTA 07/21/21 18:04 IMPRESSION: 1. There are no acute findings of the right and left internal carotid artery. ALL ABOVE CRITERIA BY NASCET. 2. There are no acute findings of the [place] without a demonstrated aneurysm or hemodynamically significant stenosis. ALL ABOVE CRITERIA BY NASCET. Electronically Signed: Andrés Valdez MD at 19:58 EDT , Chest X-Ray 07/21/21 19:28 IMPRESSION: There are no acute findings. Electronically Signed: Andrés Valdez MD at 20:05 EDT , Physical Exam Const alert, oriented x3 and no apparent distress Exam Limitations: no limitations HEENT head/scalp atraumatic and moist oral mucous membranes Head and Scalp: normocephalic Eyes PERRL, EOMs intact bilaterally and conjunctivae normal Neck no lymphadenopathy and supple Resp normal respiratory effort, no retractions, no use of accessory muscles and clear to auscultation bilaterally Cardio regular rate, regular rhythm, S1 normal heart sound, S2 normal heart sound and no murmurs GI normal to inspection, nondistended, normoactive bowel sounds, soft to palpation and non-tender Extremity normal to inspection, full ROM and no clubbing, cyanosis or edema Peripheral Pulses: Yes pulses 2+ throughout Skin no rashes or lesions noted Neuro oriented x3, CN's II-XII intact bilaterally and moves all extremities Neuro Narrative: mild tingling and numbness in right LE Sensorium / Orientation: awake and alert Psych affect normal Assessment & Plan Assessment/Plan (1) Expressive aphasia: (2) Numbness on right side: PLAN: #Expressive aphasia and right sided numbness * concerning for a stroke * sumptoms have improved * CTA of the head and neck showed n acute findings of the right and left in ternal carotid artery * MRI pending. 2D echo also ordered * PT/OT on baord. * Fall precautions * on aspirin, plavix and high intensity statin. * check A1C. 2D echo done, read is pending * #Hypertension: On lisinopril and metoprolol. #Hyperlipidemia: on statin #CAD s/p stents: * Heart stent to the proximal left circumflex artery and in April 2020 * On aspirin and Plavix as well as high intensity statin * #Type 2 diabetes mellitus: On insulin sliding scale. Accu-Cheks ACH S. DVT prophylaxis: SCDs Charges/Coding Visit Charges OBSV E&M: 21812 Subsequent observation care L2
--- NOTE | 2021-07-22 14:00 | MRI_ITS ---
EXAM: MR HEAD WITHOUT INTRAVENOUS CONTRAST CLINICAL INDICATION: CVA. Slurred speech. Right-sided weakness and paresthesias. TECHNIQUE: Multiplanar and multisequence MR images of the brain were obtained without intravenous contrast. This report was created using [employer] report generation technology. COMPARISON: CT head without contrast and CTA head and neck 07/21/2021. FINDINGS: BRAIN AND EXTRA-AXIAL SPACES: No diffusion restriction to suspect acute or subacute ischemic infarct. Few T2 FLAIR hyperintensity foci in the white matter of both cerebral hemispheres are chronic white matter ischemic changes. No remote cortical based ischemic infarcts. Normal ventricles and cisterns. No intra- or extra-axial hemorrhage. No intracranial mass or mass effect. Posterior fossa structures are unremarkable. No hydrocephalus. SELLA: Unremarkable. Normal sella turcica, pituitary gland, infundibular stalk, optic chiasm and hypothalamus. AUDITORY SYSTEM: Unremarkable. The internal auditory canals are patent. BONES/JOINTS: Unremarkable. No discrete lytic or blastic abnormalities. SINUSES: Unremarkable as visualized. Clear. MASTOID AIR CELLS: Unremarkable as visualized. Clear. ORBITS: Unremarkable as visualized. Both globes, extraocular muscles, optic nerves and retrobulbar fat appear unremarkable. VASCULATURE: Unremarkable as visualized. Normal flow voids in the major intracranial circulation. MRI/Brain without Contrast IMPRESSION: 1. No MRI evidence of acute or subacute ischemic infarct, intracranial mass or remote cortical based ischemic infarct. 2. Few chronic white matter ischemic changes in both cerebral hemispheres. Electronically Signed: Darien Young MD at 15:49 EDT ,
[2021-07-22 14:26] LABS: Bedside Glucose 384 mg/dL (74-106)
[2021-07-22 15:19] LABS: Hemoglobin A1c 12.9 % (3.8-5.6)
--- NOTE | 2021-07-22 15:29 | CHAPLAIN ---
Type of Pastoral Visit _x__ Initial Visit ___ Follow-up Visit ___ On-call Visit ___ General Patient Visit ___ Spiritual Assessment ___ Family Conference ___ Bereavement ___ Rapid Response ___ Code Blue ___ Other (describe below) Pastoral Care Referral From _x__ Patient _x__ Family _x__ Nurse ___ Physician ___ Pond Sawyer ___ Network Planner ___ Other (describe below) Sacrament/Intervention _x__ Active listening ___ Anointing ___ Mormonism ___ Bereavement ___ Communion ___ Griselda exploration ___ ___ Life review _x__ Prayer ___ Reconciliation ___ Sacrament of Sick _x__ Supportive presence ___ Wedding ___ Other (describe below) Pastoral Comments patient in bed and son is at bedside; son does explanation of situation and interpretation of conversation; pt speaks Macedonian but converses with this circle saw operator; son admits that the patient is having difficulty with words and does not always know what he is saying either; tablet was given to pt to use but his right hand is disabled at this time; pt welcomes presence and prayer; when prayer is given the patient also prays out loud; affirmation of good care and offer of support to the son;
--- NOTE | 2021-07-22 15:57 | TELEMED_ITS ---
[facility] has confirmed receipt of a request for visit. This document confirms receipt of the order initiating the consult. To find the results of the consultation, please view the patient's reports for the scanned Telemed Consult.
[2021-07-22 16:25] LABS: Bedside Glucose 315 mg/dL (74-106)
[2021-07-22] MEDS: Atorvastatin Calcium 40 MG Tablet PO (21:49)
[2021-07-22] MEDS: Insulin Glargine-YFGN 100 UNIT/ML Pen 10 UNIT SC (21:51)
--- NOTE | 2021-07-22 21:54 | EKG12_ITS ---
Test Reason : RHYTHM CHG Blood Pressure : / mmHG Vent. Rate : 059 BPM Atrial Rate : 059 BPM P-R Int : 148 ms QRS Dur : 106 ms QT Int : 430 ms P-R-T Axes : 039 -40 032 degrees QTc Int : 425 ms Sinus bradycardia Left axis deviation Abnormal ECG Confirmed by MAYDA JETER, BISI ([id number]), senior editor NEHEMIAH DAVIS ([id number]) on 07/24/2021 5:50:28 AM Referred By: DR CHRISTIANSON Confirmed By:ANGELIC OHARA MD
[2021-07-22 22:11] LABS: Bedside Glucose 363 mg/dL (74-106)
[2021-07-23] VITALS (8 sets, daily range): BP systolic 109–117; BP diastolic 71–72; PULSE 47–69; RESP 18; TEMP 36.4–36.6; O2SAT 94–97; BMI 29.0
[2021-07-23] MEDS: Insulin Lispro 100 UNIT/ML INSULN.PEN SC ×2 (06:45→11:06)
[2021-07-23 06:56] LABS: Bedside Glucose 349 mg/dL (74-106)
[2021-07-23] MEDS: Aspirin E.C. 81 MG Tablet PO (09:17)
[2021-07-23] MEDS: Clopidogrel Bisulfate 75 MG Tablet PO (09:17)
[2021-07-23] MEDS: Lisinopril 5 MG Tablet PO (09:17)
[2021-07-23] MEDS: predniSONE 20 MG Tablet PO (09:17)
--- NOTE | 2021-07-23 09:41 | CASEMGMT ---
Addendum entered by Jada Baez 07/23/21 11:27: Per therapy, pt ok to go home with [facility] and they think it will likely be better as family can interpret for pt. Per Kelsey at [facility], they can accept pt and this RN CM to clarify daughter's number for them. Pt/daughter updated on all, voice understanding. Jose A RN aware that pt/daughter will need teaching on insulin dosing/injection, voices understanding. Jamarcus OLIVO CM Addendum entered by Jada Baez 07/23/21 10:09: This RN CM also discussed IP rehab with daughter/pt and they are agreeable. Lisa MORRISSEY aware and call placed to [facility] in rehab unit. Jamarcus OLIVO CM Original Note: This RN CM to room with PERES form. Pt does not speak Uzbek but daughter at bedside speaks fluent Uzbek and this RN CM does explanation of PERES form-voices understanding and has pt sign. This RN CM also discussed HHC as well as possibly getting further insurance(ie MCR B/D) coverage for pt, daughter voices understanding to all and is agreeable to [facility], stating no preference for [facility] company. Daughter aware that pt to be sent home on insulin and that RN would instruct pt and daughter on both prior to discharge, voices understanding. Daughter aware that [facility] has vials of insulin for $20-25 but unsure what insulin will be sent home on at this time. Pt states that she did complete HCAP for pt and Lisa MORRISSEY aware and placing call to registration. Call to Kelsey at [facility] to see if they can accept pt at this time for SN/PT/OT/ST and she will call this RN CM back. Per Kelsey, all those are covered under MCR A. CM to follow. Jamarcus OLIVO CM
--- NOTE | 2021-07-23 10:33 | CASEMGMT ---
Addendum entered by Hiral Mcmillan 07/23/21 11:21: SW spoke with patient's daughter again and she would like to take patient home with home health. SW let patient's daughter know that [facility] is able to take patient. She thanked GHANSHYAM for the help. Hiral JIMENEZ Original Note: Patient had a Stroke so SW went to patient's room to complete a PHQ9. SW did have a copy in Lithuanian. Patient's daughter was present in patient's room. She felt it would be best if she completed the PHQ9 with patient utilizing the Lithuanian copy. It took an extensive amount of time with patient's daughter explaining what words mean. Patient did say he did not understand several times. Therefore, SW is not sure about the accuracy of the results. However, the last question asking if patient feels they would be better off or hurting ones self patient was very vocal that he does not want to . Patient scored a 17 which indicates moderately severe depression. Patient's daughter said patient has seemed depressed. She was interested in counseling resources. GHANSHYAM called [employer] and they provide an translator and interpreter if a patient does not speak Romanian. They currently have a Lithuanian speaking patient in which they utilize the translator and interpreter. They also have an office in [place] where patient lives. GHANSHYAM provided patient's daughter with a list of counseling resources. GHANSHYAM also provided them with a Medicaid application in Lithuanian. It was felt that patient may benefit from [facility] Acute Rehab Unit. RN MAYELA spoke with patient's daughter about this and she was interested. GHANSHYAM made referral to [facility]. Await response. Hiral JIMENEZ
--- NOTE | 2021-07-23 10:54 | PCM.DC.SUM ---
Providers Date of Admission: 07/21/21 Primary Care Physician: Dr. Lillie Sánchez MD Reason For Visit: CVA Diagnosis Discharge Diagnosis (1) Expressive aphasia: Status: Acute Code(s): R47.01 - Aphasia (2) Numbness on right side: Status: Acute Code(s): R20.0 - Anesthesia of skin Medications at Discharge Home Medications metformin 500 mg tablet 500 mg PO BID #180 tab 09/22/20 aspirin 81 mg tablet,delayed release 81 mg PO DAILY@0800 #90 tab 06/01/21 atorvastatin 40 mg tablet 40 mg PO QHS #90 tab 06/01/21 clopidogrel 75 mg tablet 75 mg PO DAILY #90 tab 06/01/21 lisinopril 5 mg tablet 5 mg PO DAILY #90 tab 06/01/21 metoprolol tartrate 25 mg tablet 25 mg PO BID #180 tab 06/01/21 blood-glucose meter [ShopSociallyStyle Flash System] #1 ea 07/23/21 insulin glargine [Lantus Solostar U-100 Insulin] 10 unit SUBCUT QPM #15 ml 07/23/21 lancets-blood glucose strips #50 ea 07/23/21 needles, chris disposable #50 ea 07/23/21 pantoprazole 40 mg PO DAILY #30 tab 07/23/21 Hospital Course Operations None Procedures 2-D Echocardiogram Summary of Care Provided Minutes Spent on Discharge: 45 Hospital Course: Patient is a 66 y/o male with a PMH as outlined who was admitted via the ED on 07/23/2021 with a complaint of right sided numbness and tingling as well as some slurred speech and expressive aphasia. Symptoms had been going on for about a week. He said he had been dropping things with his right hand, and also complained of some Gi discomfort; he had been taking oral prednisone for left knee pain. He was admitted to rule out a stroke. CT of the brain was negative for any evidence of stroke. He was already on aspirin and plavix as well as high intensity statin due to recent history of CAD s/p stents from April 2020. Patient was Ethiopian speaking and so his son helped translate. MRI of the brain showed no evidence of stroke. 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 His A1C was also markedly elevated at 12.9. He was therefore started on lantus 10 units qhs. Neurology reviewed patient and recommended we continue his aspirin, plavix and high intensity statin. Patient was discharged home on 07/23/2021. He was counseled to be compliant with his medications. He was also referred to see neurology on outpatient basis. Patient seen and examined prior to discharge. His daughter was by his bedside and helped to translate. He still complains of numbness on his right side. He denied any slurred speech, nausea vomiting, fever or chills. Review of systems otherwise negative. Labs and vitals reviewed. Medication reviewed and reconciled. Physical Exam Const alert, oriented x3 and no apparent distress General Appearance: cooperative and comfortable Exam Limitations: no limitations HEENT normocephalic, head/scalp atraumatic, hearing grossly normal bilaterally and moist oral mucous membranes Eyes PERRL, EOMs intact bilaterally, conjunctivae normal and no scleral icterus Neck no lymphadenopathy and supple General: trachea midline Resp normal respiratory effort, normal air movement, no retractions, no use of accessory muscles and clear to auscultation bilaterally Cardio regular rate, regular rhythm, S1 normal heart sound, S2 normal heart sound, no murmurs and peripheral pulses 2+ throughout GI normal to inspection, nondistended, normoactive bowel sounds, soft to palpation and non-tender Palpation: tender RUQ Extremity normal to inspection, full ROM, normal capillary refill and no clubbing, cyanosis or edema General Extremity: no tenderness to palpation of joints or extremities Skin no rashes or lesions noted General Skin Exam: no breakdown and turgor normal Lesions: no lesions Rashes: no rashes Neuro oriented x3, CN's II-XII intact bilaterally and moves all extremities Neuro Narrative: mild tingling and numbness in right LE Sensorium / Orientation: awake and alert Speech: speech abnormal Details: Positive for slurred and expressive aphasia Sensory Exam: extremities light-touch: decreased (Right upper and lower extremity) and double simultaneous stimulation for sensation abnormal Positive for left-sided extinction Psych cooperative and affect normal Appearance: appropriate Weight / BMI Weight Weight: 148 lb 9.465 oz Body Mass Index (BMI) 29.0 ABG / Lab / Microbiology Data Result Diagrams: 07/22/21 05:10 07/22/21 05:10 Laboratory: Laboratory Results - last 24 hr 07/22/21 05:10: Hemoglobin A1c 12.9 H 07/22/21 13:09: POC Glucose 384 H 07/22/21 16:19: POC Glucose 315 H 07/22/21 21:48: POC Glucose 363 H 07/23/21 06:44: POC Glucose 349 H Radiography Diagnostic Testing: Radiology Impression Echocardiogram 07/21/21 23:04 Interpretation Summary Left ventricular systolic function is normal. The estimated ejection fraction is 65 %. Mild diffuse mitral valve thickening. Trivial mitral valve insufficiency. Trivial tricuspid valve insufficiency. Trivial pulmonic valve insufficiency. Right ventricular systolic pressure estimated to be 31 mmHg. No evidence for diastolic dysfunction. Hypermobile atrial septum. Aneurysmal atrial septum. Agitated saline contrast study demonstrates a late and very faintly positive right to left interatrial shunt appearing potential compatible with a small PFO/ASD. Ordering Physician: Reji Reed Referring Physician: Lillie Sánchez M.D. Performed By: Fern Spivey RCS Brain MRI 07/22/21 14:00 IMPRESSION: 1. No MRI evidence of acute or subacute ischemic infarct, intracranial mass or remote cortical based ischemic infarct. 2. Few chronic white matter ischemic changes in both cerebral hemispheres. Electronically Signed: Darien Young MD at 15:49 EDT , D/C Instructions Discharge Diet: Low fat / Low cholesterol and 1800 Calorie Control Diet Discharge Activity: Return to Normal Activity Call your doctor if you observe: Fever of 101 or Higher, Numbness or Tingling, Shortness of breath, Dizziness, Swelling in the ankles and Chest pain Meaningful Use Info Meaningful Use Diagnoses (Choose all that apply): Ischemic CVA CVA Therapy Assessed for PT,OT and/or ST?: Yes Ischemic Stroke Antithrombotic order at d/c?: Yes Dx of Atrial fib/flutter?: No Statins at discharge?: Yes Primary Dx Acute Ischemic CVA?: Yes IV tPA ordered during stay?: No Reason IV t-PA not ordered: Treatment not Indicated Discharge Plan Admission Admit Date/Time: 07/21/21 21:47 Primary Reason for Your Visit: acute CVA Attending Provider: Cynthia Elizondo Primary Care Provider: Lillie Sánchez Instructions Patient Instructions: ED Stroke, Completed Discharge Orders/Prescriptions Prescriptions: New Lantus Solostar U-100 Insulin 100 unit/mL (3 mL) insulin pen 10 unit subcut QPM Qty: 15 RF: 2 (DME) lancets-blood glucose strips 30 gauge combo pack See Rx Instructions .ROUTE .MEDSUPPLY Qty: 50 RF: 0 (DME) needles, chris disposable 22 x 1 needle See Rx Instructions .ROUTE .MEDSUPPLY Qty: 50 RF: 0 (DME) blood-glucose meter [FreeStyle Flash System] Kit See Rx Instructions .ROUTE .MEDSUPPLY Qty: 1 RF: 0 pantoprazole 40 mg tablet,delayed release (DR/EC) 40 mg PO DAILY Qty: 30 RF: 1 Continued metformin 500 mg tablet 500 mg PO BID Qty: 180 RF: 3 metoprolol tartrate 25 mg tablet 25 mg PO BID Qty: 180 RF: 3 lisinopril 5 mg tablet 5 mg PO DAILY Qty: 90 RF: 3 clopidogrel 75 mg tablet 75 mg PO DAILY Qty: 90 RF: 3 atorvastatin 40 mg tablet 40 mg PO QHS Qty: 90 RF: 3 aspirin 81 mg tablet,delayed release (DR/EC) 81 mg PO DAILY@0800 Qty: 90 RF: 3 Discontinued prednisone 20 mg tablet 20 mg PO BID Qty: 10 RF: 0 Referrals / Follow Up: Lillie Sánchez MD [Primary Care Provider] - Within 2 Weeks Billy Rasheed MD [STAFF PHYSICIAN] - Within 2 Weeks Jony Gross MD [STAFF PHYSICIAN] - Within 2 Weeks Disposition Disposition (needs filled in before D/C Order can be placed): Home, Self Care Charges/Coding Visit Charges Inpatient E&M: 58981 Disch Hosp
[2021-07-23 11:20] LABS: Bedside Glucose 437 mg/dL (74-106)
== END 2021-07-23 11:23 | disposition home health service (06) ==
LOC: ED 21:30 → ICU 22:01 → PCU 07-22 10:09
PROVIDERS: Admitting Provider Family Medicine; Emergency Provider Emergency Medicine; PCP Internal Medicine; Visit Provider Student in an Organized Health Care Education/Training Program
DX: R47.01 Aphasia (principal); E11.9 Type 2 diabetes mellitus without complications; I25.10 Atherosclerotic heart disease of native coronary artery without angina pectoris; Z79.02 Long term (current) use of antithrombotics/antiplatelets; E78.5 Hyperlipidemia, unspecified; Z79.84 Long term (current) use of oral hypoglycemic drugs; Z79.82 Long term (current) use of aspirin; R47.81 Slurred speech; K29.00 Acute gastritis without bleeding; R06.6 Hiccough; M25.562 Pain in left knee; R06.02 Shortness of breath; Z79.52 Long term (current) use of systemic steroids; Z79.899 Other long term (current) drug therapy; R20.2 Paresthesia of skin; I25.2 Old myocardial infarction; R29.707 NIHSS score 7
CPT/HCPCS: 70496; 70498; 70551; 71045; 74177; 80048; 80053; 80061; 82962; 83036; 83690; 84484; 85025; 85610; 85730; 92523; 92610; 93005; 93306; 96361; 96374; 96375; 97162; 97166; 97167; 97530; 97535; 97802; 99218; 99285; J7030; Q9967; A4216; G0378; J2405

== ENCOUNTER 2021-07-31 14:14 | Outpatient (RCR) | payer SELFPAY ==
[2021-07-31 14:48] LABS: Color, Urine Yellow (Yellow); Glucose, Dipstick 250 mg/dl (Normal); Ketone-Dipstick 15 mg/dl (Negative); Leukocyte Esterase-Dipstick Negative /ul (Negative); Nitrite-Dipstick Negative (Negative); Occult Blood-Urine Negative /ul (Negative); Protein-Dipstick 15 mg/dl (Negative); Urine Bilirubin Dipstick Negative (Negative); Urine Clarity Clear (Clear); Urine Urobilinogen Normal (Normal)
== END 2021-08-01 23:59 ==
LOC: HHLAB 14:14
PROVIDERS: PCP Internal Medicine; Referring Provider Internal Medicine; Visit Provider Internal Medicine
DX: R53.1 Weakness (principal)
CPT/HCPCS: 81002; 87077; 87086; 87088; 87186

== ENCOUNTER → 2021-08-07 | Outpatient (CLI) | payer SELFPAY ==
[2021-08-07 13:31] LABS: Bacteria 0 SEEN /hpf (None Seen); Mucous, Urine 0 SEEN /hpf (<or=2+); Red Blood Cells-Urine 0 SEEN /hpf (0-5); Squamous Epithelial Cells - UA 0 SEEN /hpf (0-5); White Blood Cells 0 SEEN /hpf (0-5)
[2021-08-07 14:52] LABS: Color, Urine Yellow (Yellow); Glucose, Dipstick 250 mg/dl (Normal); Ketone-Dipstick Negative (Negative); Leukocyte Esterase-Dipstick Negative /ul (Negative); Nitrite-Dipstick Negative (Negative); Occult Blood-Urine Negative /ul (Negative); Protein-Dipstick Negative (Negative); Urine Bilirubin Dipstick Negative (Negative); Urine Clarity Clear (Clear); Urine Urobilinogen Normal (Normal)
[2021-08-07 14:55] LABS: Hematocrit 44.2 % (40-54); Mean Corp Hgb Conc 31.7 g/dL (32-36); Mean Corpuscular Hgb 27.6 pg (27.0-32.0); Mean Corpuscular Volume 87.2 fL (80-94); Mean Platelet Vol. 11.4 fl (6.2-12.0); Platelet Count 190 K/mm3 (150-450); RBC Distribution Width CV 13.1 % (11.6-14.6); RBC Distribution Width SD 41.4 fl (35.1-43.9); Red Blood Count 5.07 M/mm3 (4.6-6.2); White Blood Count 5.1 K/mm3 (4.4-11.0)
[2021-08-07 15:11] LABS: Vitamin B12 646 pg/mL (211-911)
[2021-08-07 15:23] LABS: ALB/GLOB Ratio 0.9 RATIO (0.9-2.4); AST(SGOT) 23 U/L (15-37); Alanine Aminotransfer ALT/SGPT 31 U/L (16-61); Albumin, Serum 3.5 g/dL (3.2-5.0); Alkaline Phosphatase 82 U/L (45-117); Anion Gap 6 (5-15); BUN 10 mg/dL (7-18); BUN/Creat Ratio 11.6 RATIO (10-20); Calcium,Total 9.2 mg/dL (8.5-10.1); Chloride 104 mmol/L (98-107); Creatinine, Serum 0.86 mg/dL (0.70-1.30); EST Glomerular Filtration Rate 94 mL/min (>60); Est Glom Filt Rate - Afr Amer 114 mL/min (>60); Globulin 3.9 g/dL (2.2-4.2); Glucose 246 mg/dL (74-106); Potassium 4.6 mmol/L (3.5-5.1); Protein, Total 7.4 g/dL (6.4-8.2); Sodium Level 136 mmol/L (136-145); Thyroid Stim Hormone (TSH) 0.53 uIU/mL (0.358-3.74)
[2021-08-17 13:24] LABS: Vitamin B1, Thiamine 126.4 nmol/L (66.5-200.0)
== END | disposition home or self-care (01) ==
LOC: BIMLAB 13:30
PROVIDERS: Psychiatry & Neurology Neurology; PCP Internal Medicine; Referring Provider Internal Medicine; Visit Provider Internal Medicine
DX: F03.90 Unspecified dementia, unspecified severity, without behavioral disturbance, psychotic disturbance, mood disturbance, and anxiety (principal); R30.0 Dysuria
CPT/HCPCS: 36415; 80053; 81001; 82607; 82746; 84425; 84443; 85027; 87086

== ENCOUNTER → 2022-04-09 | Outpatient (CLI) | payer MEDICARE, SELFPAY ==
[2022-04-09 15:14] LABS: Absolute Lymphocyte Count 1.83 X10^3/uL (0.83-4.51); Absolute Neutrophil Count 4.3 X10^3/uL (2.0-7.7); Basophil# 0.02 X10^3/uL; Basophil% 0.3 % (0-1); Eosinophil# 0.07 X10^3/uL; Eosinophils% 1.1 % (0-5); Hematocrit 46.2 % (40-54); Lymphocyte # 1.83 X10^3/ul (0.83-4.51); Lymphocyte % 27.8 % (19-41); Mean Corp Hgb Conc 32.5 g/dL (32-36); Mean Corpuscular Hgb 28.4 pg (27.0-32.0); Mean Corpuscular Volume 87.5 fL (80-94); Mean Platelet Vol. 12.7 fl (6.2-12.0); Monocyte# 0.35 X10^3/uL; Monocyte% 5.3 % (0-10); NRBC Flagged by Analyzer 0 % (0-5); Neutrophil % 65.2 % (47-70); Platelet Count 169 K/mm3 (150-450); RBC Distribution Width CV 12.5 % (11.6-14.6); RBC Distribution Width SD 39.7 fl (35.1-43.9); Red Blood Count 5.28 M/mm3 (4.6-6.2); White Blood Count 6.6 K/mm3 (4.4-11.0)
[2022-04-09 15:43] LABS: Hemoglobin A1c 12.7 % (3.8-5.6)
[2022-04-09 16:01] LABS: ALB/GLOB Ratio 0.8 RATIO (0.9-2.4); AST(SGOT) 9 U/L (15-37); Alanine Aminotransfer ALT/SGPT 25 U/L (16-61); Albumin, Serum 3.5 g/dL (3.2-5.0); Alkaline Phosphatase 136 U/L (45-117); Anion Gap 14 (5-15); BUN 18 mg/dL (7-18); BUN/Creat Ratio 19.2 RATIO (10-20); Calcium,Total 9.1 mg/dL (8.5-10.1); Chloride 103 mmol/L (98-107); Cholesterol 205 mg/dL (200); Creatinine, Serum 0.94 mg/dL (0.70-1.30); EST Glomerular Filtration Rate 85 mL/min (>60); Est Glom Filt Rate - Afr Amer 103 mL/min (>60); Globulin 4.3 g/dL (2.2-4.2); Glucose 407 mg/dL (74-106); High Density Lipoprotein 40 mg/dL; PSA,Total- Diagnostic 0.57 ng/mL (0.0-4.0); Potassium 3.8 mmol/L (3.5-5.1); Protein, Total 7.8 g/dL (6.4-8.2); Sodium Level 139 mmol/L (136-145); Triglycerides 444 mg/dL
== END | disposition home or self-care (01) ==
PROVIDERS: PCP Family Medicine; Referring Provider Family Medicine; Visit Provider Family Medicine
DX: N40.0 Benign prostatic hyperplasia without lower urinary tract symptoms (principal); E11.9 Type 2 diabetes mellitus without complications; R06.6 Hiccough
CPT/HCPCS: 36415; 80053; 80061; 83036; 84153; 85025

== ENCOUNTER → 2022-12-14 | Outpatient (CLI) | payer MEDICARE, SELFPAY ==
[2022-12-14 13:03] LABS: AST(SGOT) 17 U/L (15-37); Alanine Aminotransfer ALT/SGPT 32 U/L (16-61); Albumin, Serum 3.7 g/dL (3.2-5.0); Alkaline Phosphatase 155 U/L (45-117); Bilirubin, Direct 0.16 mg/dL (0.00-0.30); Cholesterol 183 mg/dL (200); Globulin 3.7 g/dL (2.2-4.2); High Density Lipoprotein 54 mg/dL; Protein, Total 7.4 g/dL (6.4-8.2); Triglycerides 203 mg/dL; Very Low Density Lipoprotein 41 mg/dL (5-40)
== END | disposition home or self-care (01) ==
LOC: LAB 11:46
PROVIDERS: PCP Family Medicine; Referring Provider Internal Medicine Cardiovascular Disease; Visit Provider Internal Medicine Cardiovascular Disease
DX: I25.10 Atherosclerotic heart disease of native coronary artery without angina pectoris (principal); Z95.5 Presence of coronary angioplasty implant and graft
CPT/HCPCS: 36415; 80061; 80076

== ENCOUNTER 2023-01-04 18:51 | Inpatient (IN) | payer MEDICARE, SELFPAY ==
[2023-01-04] VITALS (12 sets, daily range): BP systolic 113–152; BP diastolic 72–99; PULSE 53–75; RESP 11–18; TEMP 36.3–37.4; O2SAT 96–100; BMI 24.7; BMI 20.7
[2023-01-04] MEDS: 0.9% Normal Saline (1000mL) 1,000 ML 999 ML IV (19:00)
--- NOTE | 2023-01-04 19:02 | EKG12_ITS ---
Test Reason : DYSRHYTHMIA Blood Pressure : / mmHG Vent. Rate : 066 BPM Atrial Rate : 066 BPM P-R Int : 156 ms QRS Dur : 098 ms QT Int : 422 ms P-R-T Axes : 035 -69 051 degrees QTc Int : 442 ms Normal sinus rhythm Left anterior fascicular block Abnormal ECG Confirmed by TANNA JETER, EDEN ([id number]), magazine editor HERSON REED ([id number]) on 01/07/2023 1:16:02 PM Referred By: Confirmed By:EDEN CISSE MD
--- NOTE | 2023-01-04 19:11 | EDS_ITS ---
HPI History of Present Illness Chief Complaint: Neuro S/Sx Detail of Chief Complaint: Constellation of symptoms Limited: language barrier (The iPad denture processor service is malfunctioning. Relied on help of family member.) Onset/Context/Timing Onset: Days (Symptoms started approximate 3 days ago) Context: Sudden Onset Timing: Continuous Quality: Blurred vision bilaterally, thirst, increased urination, tingling in hands, Location: Generalized Current Severity: Moderate Maximum Severity: Moderate Worsened by: Unknown Relieved by: Nothing Associated Symptoms Associated Symptoms: No fever or chills. Narrative Narrative: Patient is a 67-year-old male with history of type 2 diabetes, atherosclerotic heart disease, hyperlipidemia, osteoarthritis, CVA who presents with a constellation of symptoms which include bilateral blurred vision, thirst, dry mouth, tingling hands and perioral, shortness of breath, nausea, frequency. Family over states he is lost weight. He has generalized weakness. Difficult to obtain any other history at this time because of language barrier. Nurses are attempting to get a cemetery counselor. Recent Illness/Hospitalization: No [facility] Medical History (Updated 01/04/23 @ 21:[address] Charity Carpenter MD) Atherosclerotic heart disease of [place] coronary artery without angina pectoris CVA (cerebral vascular accident) Dementia Diabetes mellitus Former tobacco use History of ST elevation myocardial infarction (STEMI) (05/02/20) Hyperlipidemia Numbness on right side Old inferolateral myocardial infarction (05/02/20) STEMI (ST elevation myocardial infarction) (05/02/20) Type 2 diabetes mellitus Home Medications blood-glucose meter (FreeStyle Flash System kit) #1 ea 07/23/21 [Rx Last Taken Unknown] insulin glargine 100 unit/mL (3 mL) subcutaneous pen (Lantus Solostar U-100 Insulin) 10 unit (0.1 mL) subcut QPM #15 mL 07/23/21 [Rx Last Taken Unknown] lancets 30 gauge and blood glucose strips combo pack #50 ea 07/23/21 [Rx Last Taken Unknown] needles, chris disposable 22 x 1 #50 ea 07/23/21 [Rx Last Taken Unknown] aspirin 81 mg tablet,delayed release 81 mg PO DAILY@0800 #90 tabs 11/17/21 [Rx Last Taken Unknown] metformin 500 mg tablet 500 mg PO BID #180 tabs 11/19/21 [Rx Last Taken Unknown] atorvastatin 40 mg tablet 40 mg PO QHS #90 tabs 12/14/22 [Rx Last Taken Unknown] clopidogrel 75 mg tablet 75 mg PO DAILY #90 tabs 12/14/22 [Rx Last Taken Unknown] lisinopril 10 mg tablet 10 mg PO DAILY #90 tabs 12/14/22 [Rx Last Taken Unknown] metoprolol tartrate 25 mg tablet 25 mg PO BID #180 tabs 12/14/22 [Rx Last Taken Unknown] polyethylene glycol 3350 17 gram/dose oral powder (Miralax) 4 g PO .PRN 12/14/22 [History Last Taken Unknown] Allergy/AdvReac Type Severity Reaction Status Date / Time No Known Allergies Allergy Verified 01/04/23 18:53 Family History Father Brain aneurysm Surgical History (Updated 01/04/23 @ 20:[address] David Briceno MD) History of bilateral cataract extraction History of coronary artery stent placement (05/02/20) Social History Smoking Status: Former smoker how long ago did patient quit smokin years ago second hand exposure: No alcohol intake: never substance use type: does not use caffeine: Yes Type: coffee Number of servings: 5 what type of physical activity do you participate in: walking shabana/catholic: Mandaen seatbelt use: always ROS ROS ED Constitutional Constitutional ED: Denies chills or fever(s) Eyes Eyes: Reports blurry vision bilateral; Denies diplopia ENT ENT ED: Denies rhinorrhea or sore throat Cardiovascular Cardiovascular: Denies chest pain, orthopnea or palpitations Respiratory/Chest Respiratory/Chest: Reports dyspnea; Denies cough or orthopnea Gastrointestinal Gastrointestinal: Reports nausea; Denies abdominal pain Genitourinary Genitourinary ED: Reports urinary frequency; Denies hematuria Musculoskeletal Musculoskeletal: Denies arthralgias, back pain or myalgias Integumentary Denies rash Neurologic Neurologic: Reports weakness Endocrine Endocrinology: Reports polydipsia and polyuria EXAM Physical Exam Const Vital Signs: 01/04/23 18:53 01/04/23 19:08 01/04/23 20:00 Temperature 99.3 F H 99.3 F H 99.1 F Temperature Source Temporal Temporal Temporal Pulse Rate 75 75 61 Respiratory Rate 18 18 16 Blood Pressure 142/98 H 142/98 H 144/95 H Blood Pressure Mean 112 112 111 Pulse Ox 96 96 97 Oxygen Delivery Method Room Air Room Air Room Air Positive well developed and cachectic Constitutional Narrative: Patient appears ill. Does not appear in distress. General Appearance ED: well developed and cachectic; Negative for cyanotic or pallor Nutritional Appearance: cachectic HEENT Reports dry mucous membranes HEENT Narrative: Head is atraumatic and normocephalic. Ears are normal. External auditory canal normal. TMs are normal. Nares patent. Uvula midline. No deviation tongue with protrusion. Mouth ED: Yes dry mucous membranes Mouth: dry mucous membranes Eyes Eyes Narrative: Status post cataract surgery. There is no scleral icterus. Conjunctive is not pale. Neck no lymphadenopathy, supple and no JVD Chest Wall inspection of chest normal and palpation of chest normal Resp normal respiratory effort and clear to auscultation bilaterally Cardio regular rate, regular rhythm, S1 normal heart sound, S2 normal heart sound and no murmurs GI normal to inspection, nondistended, normoactive bowel sounds, non-tender, non- distended and no masses; Negative for hepatosplenomegaly Back/Spine no CVA tenderness Neuro CN's II-XII intact bilaterally Sensorium / Orientation: Negative for alert Motor Exam: strength 5/5 throughout Skin no rashes or lesions noted, no wounds and No skin turgor normal General Skin Exam: Negative for pallor MDM MDM MDM Narrative Medical decision making narrative: PGT read greater than 600. His symptoms may be due to diabetic ketoacidosis, nonketotic hyperosmotic hyperglycemia, need to evaluate for infectious etiology. EKG was obtained to rule out cardiac ischemia. IV fluids were ordered. He will receive approximately 20 cc/kg. Insulin drip was ordered. Lab Data Attestation: I reviewed the patient's lab results. Lab results narrative: CBC is unremarkable. BGT is greater than 600. BMP is remarkable for a glucose of 692 with a normal CO2 and anion gap. BUN and creatinine are 23 and 1.76. Acetone was negative. There is ketones noted in the urine. Labs: Laboratory Results - last 24 hr 01/04/23 01/04/23 01/04/23 19:00 19:01 19:06 WBC 9.1 RBC 4.72 Hgb 13.6 Hct 40.0 MCV 84.7 MCH 28.8 MCHC 34.0 RDW Std Deviation 35.8 RDW Coeff of Chris 11.7 Plt Count 163 MPV 12.4 H Immature Gran % (Auto) 0.100 Neut % (Auto) 68.5 Lymph % (Auto) 24.1 Forest % (Auto) 6.8 Eos % (Auto) 0.0 Baso % (Auto) 0.5 Absolute Neuts (auto) 6.2 Absolute Lymphs (auto) 2.19 Nucleated RBC % 0 Sodium 126 L Potassium 4.3 Chloride 92 L Carbon Dioxide 23.0 Anion Gap 11 BUN 23 H Creatinine 1.76 H Estim Creat Clear Calc 29.72 Est GFR (MDRD) Af Amer 50 L Est GFR (MDRD) Non-Af 41 L BUN/Creatinine Ratio 13.1 Glucose 692 H* Hemoglobin A1c > 14.0 H Calcium 9.3 Urine Color Urine Clarity Urine pH Ur Specific [place] Urine Protein Urine Glucose (UA) Urine Ketones Urine Occult Blood Urine Nitrite Urine Bilirubin Urine Urobilinogen Ur Leukocyte Esterase Acetone Level NEGATIVE POC Glucose > 500 H* 01/04/23 01/04/23 20:20 20:30 WBC RBC Hgb Hct MCV MCH MCHC RDW Std Deviation RDW Coeff of Chris Plt Count MPV Immature Gran % (Auto) Neut % (Auto) Lymph % (Auto) Forest % (Auto) Eos % (Auto) Baso % (Auto) Absolute Neuts (auto) Absolute Lymphs (auto) Nucleated RBC % Sodium Potassium Chloride Carbon Dioxide Anion Gap BUN Creatinine Estim Creat Clear Calc Est GFR (MDRD) Af Amer Est GFR (MDRD) Non-Af BUN/Creatinine Ratio Glucose Hemoglobin A1c Calcium Urine Color Yellow Urine Clarity Clear Urine pH 6.5 Ur Specific [place] 1.010 Urine Protein Negative Urine Glucose (UA) 1000 H Urine Ketones 15 H Urine Occult Blood Negative Urine Nitrite Negative Urine Bilirubin Negative Urine Urobilinogen Normal Ur Leukocyte Esterase Negative Acetone Level POC Glucose > 500 H* ABG Data ABG results: ABG 01/04/23 19:40 Specimen Type SYLVESTER Sample Site Not entered VBG pH 7.39 VBG pO2 40 VBG HCO3 25 VBG Total CO2 26 VBG O2 Sat (Calc) 74 H VBG Base Excess 0 POC Mix VBG pCO2 Pt Tmp 40.9 L O2 Delivery Device Room Air Radiography Chest X-Ray - ED: 1 View and Read by ED Physician (Independently reviewed interpreted by me at 1934 as negative for any acute process. Cardiac silhouette size normal. Lung parenchyma normal. Perihilar region normal. Osseous structures are normal) Diagnostic Testing: Clinical Impression(s) from Imaging Studies Chest X-Ray 01/04/23 19:21 IMPRESSION: No definite acute or significant abnormality seen. Electronically Signed: Reji Desir MD at 19:43 EDT , EKG Initial EKG: Attestation: I personally reviewed and interpreted this EKG as follows: Interpretation: Sinus Rhythm (Rate of 66. There is a left anterior fascicular block. MN interval is 106 ms, QRS duration is 98 ms. QT durations 422 ms. [place] to the left.) Treatment and Re-Evaluation :: Patient was started on insulin drip. Will call hospitalist for admission. Critical Care Time Critical Care Time: Yes Critical care time (excluding procedures): 30-74 minutes (33), Including time spent: (History, physical, documentation, use of family member as denture processor since the denture processor services not functioning.), Discussing w/Patient &/or Family/Shoe Clerk, Discussing w/Consultants and Arranging Admission or Transfer Discharge Plan Dx/Rx/DC Orders Clinical Impression: HHNC (hyperglycemic hyperosmolar nonketotic coma), History of coronary artery stent placement, Hyperlipidemia, Acute kidney injury, Hypertension, History of stroke Disposition Disposition: Acute Care Hospital [facility]
[2023-01-04 19:18] LABS: Bedside Glucose > 500 mg/dL (74-106)
--- NOTE | 2023-01-04 19:21 | RAD_ITS ---
STUDY: X-RAY CHEST REASON FOR EXAM: Male, 67 years old. Dyspnea TECHNIQUE: Single AP portable view of the chest. COMPARISON: 07/21/2021. FINDINGS: The lungs are clear and expanded. There is no demonstrated pleural abnormality. There is mild cardiac enlargement. Normal mediastinum and paige. Normal visualized pulmonary arteries. There is atherosclerotic tortuosity of the aortic arch and descending thoracic aorta. Normal visualized thoracic spine. Normal visualized ribs, clavicles, and shoulders. There is no demonstrated abnormality of the visualized soft tissue structures of the upper abdomen. RAD/Chest 1 View (Portable) IMPRESSION: No definite acute or significant abnormality seen. Electronically Signed: Reji Desir MD at 19:43 EDT ,
[2023-01-04 19:24] LABS: Absolute Lymphocyte Count 2.19 X10^3/uL (0.83-4.51); Absolute Neutrophil Count 6.2 X10^3/uL (2.0-7.7); Basophil# 0.05 X10^3/uL; Basophil% 0.5 % (0-1); Hemoglobin 13.6 g/dL (13.0-16.5); Lymphocyte # 2.19 X10^3/ul (0.83-4.51); Lymphocyte % 24.1 % (19-41); Mean Corpuscular Hgb 28.8 pg (27.0-32.0); Mean Corpuscular Volume 84.7 fL (80-94); Mean Platelet Vol. 12.4 fl (6.2-12.0); Monocyte# 0.62 X10^3/uL; Monocyte% 6.8 % (0-10); NRBC Flagged by Analyzer 0 % (0-5); Neutrophil # 6.23 X10^3/uL (2.7-7.7); Neutrophil % 68.5 % (47-70); Platelet Count 163 K/mm3 (150-450); RBC Distribution Width CV 11.7 % (11.6-14.6); RBC Distribution Width SD 35.8 fl (35.1-43.9); Red Blood Count 4.72 M/mm3 (4.6-6.2); White Blood Count 9.1 K/mm3 (4.4-11.0)
[2023-01-04] MEDS: Insulin Lispro 100 UNIT in 0.9% Normal Saline (100mL Bag) 99 ML 5.9 UNIT CONT INF (19:35)
--- NOTE | 2023-01-04 19:37 | ED.RN ---
INSULIN DRIP VERIFIED WITH PALLAVI BLOOM
[2023-01-04 19:42] LABS: Blood Gas Specimen Type VEN; O2 Delivery Device Room Air; SITE Not entered; VBG BASE EXCESS 0 mmol/L (-1.0-3.5); VBG Bicarbonate 25 mmol/L (22-26); VBG PO2 40 mmHg (25-40); VBG SO2 74 % (50-70); VBG TCO2 26 mmol/L (23-33); VBG pCO2 40.9 mmHg (41-51); VBG pH 7.39 (7.32-7.42)
[2023-01-04 20:32] LABS: Bacteria 0 SEEN /hpf (None Seen); Mucous, Urine 0 SEEN /hpf (<or=2+); Red Blood Cells-Urine 0 SEEN /hpf (0-5); Squamous Epithelial Cells - UA 0 SEEN /hpf (0-5); White Blood Cells 0 SEEN /hpf (0-5)
[2023-01-04 20:33] LABS: Color, Urine Yellow (Yellow); Glucose, Dipstick 1000 mg/dl (Normal); Ketone-Dipstick 15 mg/dl (Negative); Leukocyte Esterase-Dipstick Negative /ul (Negative); Nitrite-Dipstick Negative (Negative); Occult Blood-Urine Negative /ul (Negative); Protein-Dipstick Negative (Negative); Urine Bilirubin Dipstick Negative (Negative); Urine Clarity Clear (Clear); Urine Urobilinogen Normal (Normal); Urine pH 6.5 (5.0 - 8.0)
[2023-01-04 20:39] LABS: Anion Gap 11 (5-15); BUN 23 mg/dL (7-18); BUN/Creat Ratio 13.1 RATIO (10-20); Calcium,Total 9.3 mg/dL (8.5-10.1); Chloride 92 mmol/L (98-107); Creatinine, Serum 1.76 mg/dL (0.70-1.30); EST Glomerular Filtration Rate 41 mL/min (>60); Est Glom Filt Rate - Afr Amer 50 mL/min (>60); Estimated Creatinine Clearance 29.72 ml/min; Glucose 692 mg/dL (74-106); Potassium 4.3 mmol/L (3.5-5.1); Sodium Level 126 mmol/L (136-145)
[2023-01-04 20:48] LABS: Bedside Glucose > 500 mg/dL (74-106)
[2023-01-04 21:04] LABS: Hemoglobin A1c > 14.0 % (3.8-5.6)
--- NOTE | 2023-01-04 21:10 | PCM.HP.STD ---
HPI - General General Date of Admission: 01/04/23 Date of Service: 01/04/23 Chief Complaint: Blurry vision, polyuria, polydipsia. HPI Narrative The patient is a 67 y/o M w/ PMHx: CAD w/ Hx STEMI s/p PCI, Hx CVA, Dementia unclear type with unclear behavioral disturbance history, Diabetes mellitus type II, HTN, HLD, Former tobacco use who presents to the [facility] ED on 01/04/23 with history of onset of a myriad of symptoms starting approximately 3 days prior and persistent in nature including vision changes described as blurry, increased thirst as well as urination, bilateral tingling to his hands as well as fatigue and malaise with no recent fevers or chills but concern for the symptoms in addition to occasional nausea and weight loss with generalized weakness prompted ED evaluation. Daughter who is present does report that he does take his medications but he does not follow any kind of diabetic diet. She states he has been very confused over the last 3 days above any baseline. Work-up in the ED included T99.3, heart rate 75, BP 142/98, respiratory rate 18, 96% on room air, CBC with WC 9.1, human 13.6, platelet 163 without marked shift, VBG with O2 saturation 70%, VBG PCO2 40.9 on room air, BMP with sodium 126, chloride 92, BUN/creatinine 23/1.76, glucose 692, urinalysis with glucose 1000, ketone 15, acetone negative, hemoglobin A1c already obtained per ED physician and noted to be greater than 14%, chest x-ray with no acute cardiopulmonary finding, EKG with sinus rhythm with left anterior fascicular block with no acute evidence of ischemia. In the ED given presentation with concern for HHS with significant debility patient initiated on insulin drip and administered 1 L normal saline. [facility] Medical History Atherosclerotic heart disease of [place] coronary artery without angina pectoris CVA (cerebral vascular accident) Dementia Diabetes mellitus Former tobacco use History of ST elevation myocardial infarction (STEMI) (05/02/20) Hyperlipidemia Numbness on right side Old inferolateral myocardial infarction (05/02/20) STEMI (ST elevation myocardial infarction) (05/02/20) Type 2 diabetes mellitus Home Medications blood-glucose meter (FreeStyle Flash System kit) #1 ea 07/23/21 [Rx Last Taken Unknown] insulin glargine 100 unit/mL (3 mL) subcutaneous pen (Lantus Solostar U-100 Insulin) 10 unit (0.1 mL) subcut QPM #15 mL 07/23/21 [Rx Last Taken Unknown] lancets 30 gauge and blood glucose strips combo pack #50 ea 07/23/21 [Rx Last Taken Unknown] needles, chris disposable 22 x 1 #50 ea 07/23/21 [Rx Last Taken Unknown] aspirin 81 mg tablet,delayed release 81 mg PO DAILY@0800 #90 tabs 11/17/21 [Rx Last Taken Unknown] metformin 500 mg tablet 500 mg PO BID #180 tabs 11/19/21 [Rx Last Taken Unknown] atorvastatin 40 mg tablet 40 mg PO QHS #90 tabs 12/14/22 [Rx Last Taken Unknown] clopidogrel 75 mg tablet 75 mg PO DAILY #90 tabs 12/14/22 [Rx Last Taken Unknown] lisinopril 10 mg tablet 10 mg PO DAILY #90 tabs 12/14/22 [Rx Last Taken Unknown] metoprolol tartrate 25 mg tablet 25 mg PO BID #180 tabs 12/14/22 [Rx Last Taken Unknown] polyethylene glycol 3350 17 gram/dose oral powder (Miralax) 4 g PO .PRN 12/14/22 [History Last Taken Unknown] Allergy/AdvReac Type Severity Reaction Status Date / Time No Known Allergies Allergy Verified 01/04/23 18:53 Family History Father Brain aneurysm other (Denies any marked maternal family history including HD, DM, CA.) Surgical History History of bilateral cataract extraction History of coronary artery stent placement (05/02/20) Social History (Updated 01/04/23 @ 21:[address] Charity Carpenter MD) household members: family Smoking Status: Former smoker how long ago did patient quit smokin years ago second hand exposure: No alcohol intake: never substance use type: does not use caffeine: Yes Type: coffee Number of servings: 5 what type of physical activity do you participate in: walking shabana/pentecostal: Latter-Day seatbelt use: always ROS ROS Narrative Admission Review of Systems: CONSTITUTIONAL: No weight loss, fever, chills, + weakness or fatigue. HEENT: Eyes: + blurred vision. No visual loss, double vision or yellow sclerae. Ears, Nose, Throat: No hearing loss, sneezing, congestion, runny nose or sore throat. SKIN: No rash or itching, lesions, wounds. CARDIOVASCULAR: No chest pain, chest pressure or chest discomfort, palpitations, edema, orthopnea, syncopal events. RESPIRATORY: No shortness of breath, cough or sputum, wheezing, hemoptysis. GASTROINTESTINAL: + anorexia, nausea, constipation, intermittent abdominal cramping especially with increased constipation. No vomiting, diarrhea, melena, BRBPR. GENITOURINARY: + polyuria/frequency, No dysuria, urgency or retention. NEUROLOGICAL: + Confusion, paresthesias BL, vision changes. No dizziness, syncope, paralysis, ataxia, numbness or tingling in the extremities, focal weakness, change in bowel or bladder control, seizure. MUSCULOSKELETAL: + muscle, back pain, joint pain or stiffness. HEMATOLOGIC: + Easy bleeding or bruising. LYMPHATICS: No enlarged nodes. No history of splenectomy. PSYCHIATRIC: No history of depression or anxiety. ENDOCRINOLOGIC: + reports of sweating, cold or heat intolerance, polyuria or polydipsia. ALLERGIES: No history of asthma, hives, eczema or rhinitis. Vital Signs Vital Signs Vital Signs: 01/04/23 18:53 01/04/23 19:08 01/04/23 20:00 Temperature 99.3 F H 99.3 F H 99.1 F Temperature Source Temporal Temporal Temporal Pulse Rate 75 75 61 Respiratory Rate 18 18 16 Blood Pressure 142/98 H 142/98 H 144/95 H Blood Pressure Mean 112 112 111 Pulse Ox 96 96 97 Oxygen Delivery Method Room Air Room Air Room Air Weight Weight: 130 lb 15.273 oz Body Mass Index (BMI) 24.7 Physical Exam Narrative Physical Examination: General: Awakens to discussions, alert during conversation, oriented to self and daughter but she reports that he is confused still and has been for the last several days, remains cooperative, following commands, laying in the ED bed, fatigued appearing. Skin: Normal color, normal turgor, no icterus, no cyanosis. HEENT: AT/NC, EOMI, PERRLA, dry MM, no carotid bruits or JVD noted. Lungs: Diminished, greater bases, appropriate effort, no rales, ronchi or wheezing. Heart: Regular rate and rhythm; no gallop, rub audible. Abdomen: Soft, NTTP, ND, mildly hyperactive BS, no HSM. Extremities: No cyanosis, clubbing, or edema. Neurological: Awakens to discussions, alert during conversation, oriented to self and daughter but she reports that he is confused still, cognitive function not baseline intact; pupils equally reactive to light and accommodation, cranial nerves grossly normal, moving all 4 extremities, no focal deficits, strength severely global decrease secondary to acute presentation and underlying comorbidities. Psychiatric: Affect appears flat, fatigued, no acute evidence of depressive or anxiety feelings. Results Lab / Micro Data 01/04/23 19:06 01/04/23 19:06 Labs: Laboratory Results - last 24 hr 01/04/23 19:00: POC Glucose > 500 H* 01/04/23 19:01: Hemoglobin A1c > 14.0 H 01/04/23 19:06: WBC 9.1, RBC 4.72, Hgb 13.6, Hct 40.0, MCV 84.7, MCH 28.8, MCHC 34.0, RDW Std Deviation 35.8, RDW Coeff of Chris 11.7, Plt Count 163, MPV 12.4 H, Immature Gran % (Auto) 0.100, Neut % (Auto) 68.5, Lymph % (Auto) 24.1, Bertie % (Auto) 6.8, Eos % (Auto) 0.0, Baso % (Auto) 0.5, Absolute Neuts (auto) 6.2, Absolute Lymphs (auto) 2.19, Nucleated RBC % 0, Sodium 126 L, Potassium 4.3, Chloride 92 L, Carbon Dioxide 23.0, Anion Gap 11, BUN 23 H, Creatinine 1.76 H, Estim Creat Clear Calc 29.72, Est GFR (MDRD) Af Amer 50 L, Est GFR (MDRD) Non-Af 41 L, BUN/Creatinine Ratio 13.1, Glucose 692 H*, Calcium 9.3, Acetone Level NEGATIVE 01/04/23 20:20: Urine Color Yellow, Urine Clarity Clear, Urine pH 6.5, Ur Specific [place] 1.010, Urine Protein Negative, Urine Glucose (UA) 1000 H, Urine Ketones 15 H, Urine Occult Blood Negative, Urine Nitrite Negative, Urine Bilirubin Negative, Urine Urobilinogen Normal, Ur Leukocyte Esterase Negative 01/04/23 20:30: POC Glucose > 500 H* ABG Data ABG results: ABG 01/04/23 19:40 Specimen Type SYLVESTER Sample Site Not entered VBG pH 7.39 VBG pO2 40 VBG HCO3 25 VBG Total CO2 26 VBG O2 Sat (Calc) 74 H VBG Base Excess 0 POC Mix VBG pCO2 Pt Tmp 40.9 L O2 Delivery Device Room Air Radiology Impression Chest X-Ray 01/04/23 19:21 IMPRESSION: No definite acute or significant abnormality seen. Electronically Signed: Reji Desir MD at 19:43 EDT , Assessment & Plan Assessment/Plan (1) HHNC (hyperglycemic hyperosmolar nonketotic coma): PLAN: Plan The patient is a 67 y/o M w/ PMHx: CAD w/ Hx STEMI s/p PCI, Hx CVA, Dementia unclear type with unclear behavioral disturbance history, Diabetes mellitus type II, HTN, HLD, Former tobacco use who presents to the [facility] ED on 01/04/23 with history of onset of a myriad of symptoms starting approximately 3 days prior and persistent in nature including vision changes described as blurry, increased thirst as well as urination, bilateral tingling to his hands as well as fatigue and malaise with no recent fevers or chills but concern for the symptoms in addition to occasional nausea and weight loss with generalized weakness prompted ED evaluation. #1. HHS w/ Diabetes mellitus type II, significantly uncontrolled: Will admit to the ICU, will continue on insulin drip, check serial K+, glucose w/ IVF changes pending these levels, serial chemistry, obtain mag, phos daily w/ repletion as needed, transition to home SC regimen once clinically improved, HgbA1c already obtained per ED physician and noted to be greater than 14%, will also obtain serum Osm, will continue aggressive IVFs, will also encouraged diet and insulin regimen compliance, CM consulted. #2. Acute kidney injury: Secondary to acute presentation as noted #1 and likely dehydration with recent poor oral intake per family report. Admission BUN/Cr 23/1.76, prior baseline creatinine noted to be 0.7-0.9. Will continue as noted to aggressively hydrate, hold nephrotoxic medications and repeat chemistry in AM. If no improvement would plan FeNa and renal ultrasound assessment. #3. CAD: Status post prior STEMI, status post PCI, will continue aspirin, plavix, statin, metoprolol, holding lisinopril given AUGIE with resumption once appropriate. #4. Hypertension: Continue home regimen including metoprolol, PRN hydralazine. #5. Hyperlipidemia: Continue home statin regimen. #6. History CVA: Family denies any specific focal deficits aside from memory impairment, we will continue aspirin, statin, hypertensive regimen with adjustments as noted given AUGIE and as noted #1 with hold on home insulin therapy temporarily. #7. Dementia, unclear type with unclear behavioral disturbance history: Complicates presentation, maintain on fall and aspiration precautions, therapies consulted as well as case management for discharge planning. #8. Former tobacco use: Encourage continued tobacco cessation. #9. DVT prophylaxis: Heparin. #10. CODE status: Patient does not have living will or HCPOA but his children would be his decision makers and his daughter is present. Discussed CODE status at length with family including difference between FULL code, DNR-CCA and DNR-CC status. Following discussions about the differences in these status, requested Full Code status. Advanced Care Planning Face to Face Time: 16 minutes. Charges/Coding Visit Charges Inpatient E&M: 56673 Init Hosp L3 Procedures Hospitalists Procedures: 07326 Advncd Care Plan 30 Min
[2023-01-04 21:49] LABS: Anion Gap 8 (5-15); BUN 21 mg/dL (7-18); BUN/Creat Ratio 12.9 RATIO (10-20); Calcium,Total 8.6 mg/dL (8.5-10.1); Chloride 99 mmol/L (98-107); Creatinine, Serum 1.63 mg/dL (0.70-1.30); EST Glomerular Filtration Rate 45 mL/min (>60); Est Glom Filt Rate - Afr Amer 54 mL/min (>60); Estimated Creatinine Clearance 32.09 ml/min; Glucose 473 mg/dL (74-106); Magnesium 2.1 mg/dL (1.6-2.6); Potassium 4.8 mmol/L (3.5-5.1); Sodium Level 131 mmol/L (136-145)
[2023-01-04] MEDS: Atorvastatin Calcium 40 MG Tablet PO (22:14)
[2023-01-04] MEDS: 0.9% Normal Saline (1000mL) 1,000 ML 150 ML IV (22:14)
[2023-01-04] MEDS: Pantoprazole Sodium 40 MG in 0.9% Normal Saline (100mL MB+) 100 ML 330 MG IV (22:14)
[2023-01-04] MEDS: Metoprolol Tartrate 25 MG Tablet PO (22:15)
[2023-01-04] MEDS: Heparin Injection (Vial) 5,000 UNIT/ML VIAL 5000 UNIT SC (22:15)
[2023-01-04 22:45] LABS: Osmolality, Serum 309 mOsm/KG (280-301)
[2023-01-05] VITALS (23 sets, daily range): BP systolic 95–169; BP diastolic 29–90; PULSE 50–66; RESP 12–17; TEMP 35.8–37.1; O2SAT 92–100; BMI 21.5
[2023-01-05 00:07] LABS: Bedside Glucose 279 mg/dL (74-106)
[2023-01-05 00:07] LABS: Bedside Glucose 363 mg/dL (74-106)
[2023-01-05 05:07] LABS: Bedside Glucose 254 mg/dL (74-106)
[2023-01-05 05:07] LABS: Bedside Glucose 240 mg/dL (74-106)
[2023-01-05 05:07] LABS: Bedside Glucose 273 mg/dL (74-106)
[2023-01-05 05:07] LABS: Bedside Glucose 222 mg/dL (74-106)
[2023-01-05] MEDS: 0.9% Normal Saline (1000mL) 1,000 ML 150 ML IV ×3 (06:39→20:12)
[2023-01-05 06:46] LABS: Absolute Lymphocyte Count 3.24 X10^3/uL (0.83-4.51); Absolute Neutrophil Count 3.6 X10^3/uL (2.0-7.7); Basophil# 0.06 X10^3/uL; Basophil% 0.8 % (0-1); Eosinophil# 0.06 X10^3/uL; Eosinophils% 0.8 % (0-5); Hematocrit 34.7 % (40-54); Hemoglobin 11.8 g/dL (13.0-16.5); Lymphocyte # 3.24 X10^3/ul (0.83-4.51); Lymphocyte % 43.4 % (19-41); Mean Corpuscular Hgb 29.2 pg (27.0-32.0); Mean Corpuscular Volume 85.9 fL (80-94); Mean Platelet Vol. 11.9 fl (6.2-12.0); Monocyte# 0.52 X10^3/uL; NRBC Flagged by Analyzer 0 % (0-5); Neutrophil # 3.57 X10^3/uL (2.7-7.7); Neutrophil % 47.7 % (47-70); Platelet Count 157 K/mm3 (150-450); RBC Distribution Width CV 11.7 % (11.6-14.6); Red Blood Count 4.04 M/mm3 (4.6-6.2); White Blood Count 7.5 K/mm3 (4.4-11.0)
[2023-01-05 07:27] LABS: ALB/GLOB Ratio 0.9 RATIO (0.9-2.4); AST(SGOT) 21 U/L (15-37); Alanine Aminotransfer ALT/SGPT 26 U/L (16-61); Alkaline Phosphatase 85 U/L (45-117); Anion Gap 5 (5-15); BUN 16 mg/dL (7-18); BUN/Creat Ratio 13.8 RATIO (10-20); Calcium,Total 8.5 mg/dL (8.5-10.1); Chloride 109 mmol/L (98-107); Creatinine, Serum 1.16 mg/dL (0.70-1.30); EST Glomerular Filtration Rate 66 mL/min (>60); Est Glom Filt Rate - Afr Amer 80 mL/min (>60); Estimated Creatinine Clearance 52.24 ml/min; Globulin 3.2 g/dL (2.2-4.2); Glucose 144 mg/dL (74-106); Protein, Total 6.2 g/dL (6.4-8.2); Sodium Level 140 mmol/L (136-145)
[2023-01-05 08:25] LABS: Bedside Glucose 210 mg/dL (74-106)
[2023-01-05 08:25] LABS: Bedside Glucose 160 mg/dL (74-106)
[2023-01-05 08:25] LABS: Bedside Glucose 223 mg/dL (74-106)
[2023-01-05] MEDS: 0.9% Normal Saline (250mL Bag) 250 ML 15 ML IV (08:54)
[2023-01-05] MEDS: Potassium Chloride 10mEq/100mL 10 MEQ/100 ML IV.SOLN. 100 MEQ IV BOLUS ×4 (08:58→13:14)
[2023-01-05] MEDS: Aspirin E.C. 81 MG Tablet PO (09:06)
[2023-01-05] MEDS: Clopidogrel Bisulfate 75 MG Tablet PO (09:06)
[2023-01-05] MEDS: Heparin Injection (Vial) 5,000 UNIT/ML VIAL 5000 UNIT SC ×2 (09:07→22:21)
[2023-01-05 09:20] LABS: Anion Gap 4 (5-15); BUN 18 mg/dL (7-18); BUN/Creat Ratio 13.5 RATIO (10-20); Calcium,Total 8.9 mg/dL (8.5-10.1); Chloride 105 mmol/L (98-107); Creatinine, Serum 1.33 mg/dL (0.70-1.30); EST Glomerular Filtration Rate 57 mL/min (>60); Est Glom Filt Rate - Afr Amer 69 mL/min (>60); Estimated Creatinine Clearance 45.56 ml/min; Glucose 268 mg/dL (74-106); Potassium 3.3 mmol/L (3.5-5.1); Sodium Level 138 mmol/L (136-145)
[2023-01-05] MEDS: Pantoprazole Sodium 40 MG in 0.9% Normal Saline (100mL MB+) 100 ML 330 MG IV (09:26)
[2023-01-05] MEDS: Insulin Glargine-YFGN 100 UNIT/ML Pen 10 UNIT SC ×2 (09:37→22:18)
[2023-01-05 09:39] LABS: Bedside Glucose 160 mg/dL (74-106)
--- NOTE | 2023-01-05 10:40 | RAD_ITS ---
INDICATION: neck pain EXAMINATION/TECHNIQUE: X-RAY - XR Spine Cervical 4 or 5 Views COMPARISON: No relevant prior comparison study available FINDINGS: VERTEBRAE: Preserved vertebral body height. No fracture. No spondylolisthesis. Preservation of the normal cervical lordosis. Mild facet arthropathy throughout. DISCS: Disc space narrowing at C5-C6 with endplate osteophytes noted. No significant bony neuroforaminal narrowing seen. NECK SOFT TISSUES: No prevertebral soft tissue widening. LUNG APICES: Clear. RAD/Cerv Spine 4 or 5 Views IMPRESSION: Mild degenerative changes of the cervical spine which are greatest at the C5-C6 level.. Electronically Signed: Mikal Zavaleta MD at 16:03 EDT ,
--- NOTE | 2023-01-05 11:56 | CHAPLAIN ---
Type of Pastoral Visit _x__ Initial Visit ___ Follow-up Visit ___ On-call Visit ___ General Patient Visit ___ Spiritual Assessment ___ Family Conference ___ Bereavement ___ Rapid Response ___ Code Blue ___ Other (describe below) Pastoral Care Referral From ___ Patient _x__ Family ___ Nurse ___ Physician ___ Quartz Mounter ___ Marketing Developer ___ Other (describe below) Sacrament/Intervention _x__ Active listening ___ Anointing ___ Holiness ___ Bereavement ___ Communion ___ Griselda exploration ___ ___ Life review _x__ Prayer ___ Reconciliation ___ Sacrament of Sick _x__ Supportive presence ___ Wedding ___ Other (describe below) Pastoral Comments daughter is with patient in the room and interprets for him; pt shows on his face some obvious pain which comes and goes according to daughter; pt has had significant health issues in recent years; pt welcomes a prayer when asked; pt folds his hands and then says, francia when prayer is completed; offer of support to daughter but she indicates no other further needs
[2023-01-05] MEDS: Acetaminophen 325 MG Tablet 650 MG PO ×2 (13:10→20:12)
[2023-01-05 13:12] LABS: Bedside Glucose 131 mg/dL (74-106)
[2023-01-05] MEDS: Insulin Lispro 100 UNIT/ML INSULN.PEN 15 UNIT SC (13:27)
[2023-01-05 15:40] LABS: Bedside Glucose 417 mg/dL (74-106)
--- NOTE | 2023-01-05 16:06 | PN_ITS ---
Subjective Subjective Patient seen and examined. Daughter was by his bedside. Patient speaks only Welsh so daughter interpreted for him. He complained of right-sided numbness and tingling which is not new and is in the EMR for the back in 2020. He was admitted with markedly elevated blood sugar and is being managed for HHS. Blood sugars have trended down and was in the 160s. He has therefore been started on subcu Lantus. He denied any nausea or vomiting, fever or chills though he admitted to feeling weak and Complaining of the numbness and tingling in his right hand and right arm. Objective Data Objective Data Vital Signs: Vital Signs Temp Pulse Resp BP Pulse Ox O2 Del Method 97.1 F L 63 17 105/29 L 98 Room Air 01/05/23 12:00 01/05/23 15:00 01/05/23 15:00 01/05/23 15:00 01/05/23 15:00 01/05/23 15:00 Oxygen Delivery Method Room Air Weight: 133 lb 9.602 oz Body Mass Index (BMI) 21.5 Intake & Output: Intake and Output for Last 24 Hours 01/03/23 01/04/23 01/05/23 23:59 23:59 23:59 Intake Total 1124.65 / 1124.65 2472.50 / 2472.50 Output Total 395 / 395 Balance 1124.65 / 1124.65 2077.50 / 2077.50 Lab / Micro Data 01/05/23 06:00 01/05/23 06:40 Labs: Laboratory Results - last 24 hr 01/04/23 19:00: POC Glucose > 500 H* 01/04/23 19:01: Hemoglobin A1c > 14.0 H 01/04/23 19:06: WBC 9.1, RBC 4.72, Hgb 13.6, Hct 40.0, MCV 84.7, MCH 28.8, MCHC 34.0, RDW Std Deviation 35.8, RDW Coeff of Chris 11.7, Plt Count 163, MPV 12.4 H, Immature Gran % (Auto) 0.100, Neut % (Auto) 68.5, Lymph % (Auto) 24.1, Runnels % (Auto) 6.8, Eos % (Auto) 0.0, Baso % (Auto) 0.5, Absolute Neuts (auto) 6.2, Absolute Lymphs (auto) 2.19, Nucleated RBC % 0, Sodium 126 L, Potassium 4.3, Chloride 92 L, Carbon Dioxide 23.0, Anion Gap 11, BUN 23 H, Creatinine 1.76 H, Estim Creat Clear Calc 29.72, Est GFR (MDRD) Af Amer 50 L, Est GFR (MDRD) Non-Af 41 L, BUN/Creatinine Ratio 13.1, Glucose 692 H*, Serum Osmolality 309 H, Calcium 9.3, Acetone Level NEGATIVE 01/04/23 20:20: Urine Color Yellow, Urine Clarity Clear, Urine pH 6.5, Ur Specific [place] 1.010, Urine Protein Negative, Urine Glucose (UA) 1000 H, Urine Ketones 15 H, Urine Occult Blood Negative, Urine Nitrite Negative, Urine Bilirubin Negative, Urine Urobilinogen Normal, Ur Leukocyte Esterase Negative, Urine RBC 0 SEEN, Urine WBC 0 SEEN, Ur Squamous Epith Cells 0 SEEN, Urine Bacteria 0 SEEN, Urine Mucus 0 SEEN 01/04/23 20:30: POC Glucose > 500 H* 01/04/23 21:05: Sodium 131 L, Potassium 4.8, Chloride 99, Carbon Dioxide 24.0, Anion Gap 8, BUN 21 H, Creatinine 1.63 H, Estim Creat Clear Calc 32.09, Est GFR (MDRD) Af Amer 54 L, Est GFR (MDRD) Non-Af 45 L, BUN/Creatinine Ratio 12.9, Glucose 473 H*, Calcium 8.6, Phosphorus 3.0, Magnesium 2.1 01/04/23 22:38: POC Glucose 363 H 01/04/23 23:48: POC Glucose 279 H 01/05/23 00:38: POC Glucose 254 H 01/05/23 01:39: POC Glucose 273 H 01/05/23 02:30: POC Glucose 240 H 01/05/23 02:37: Sodium 138, Potassium 3.3 L, Chloride 105, Carbon Dioxide 29.0, Anion Gap 4 L, BUN 18, Creatinine 1.33 H, Estim Creat Clear Calc 45.56, Est GFR (MDRD) Af Amer 69, Est GFR (MDRD) Non-Af 57 L, BUN/Creatinine Ratio 13.5, Glucose 268 H, Calcium 8.9 01/05/23 03:28: POC Glucose 222 H 01/05/23 04:35: POC Glucose 210 H 01/05/23 05:24: POC Glucose 223 H 01/05/23 06:00: WBC 7.5, RBC 4.04 L, Hgb 11.8 L, Hct 34.7 L, MCV 85.9, MCH 29.2, MCHC 34.0, RDW Std Deviation 37.0, RDW Coeff of Chris 11.7, Plt Count 157, MPV 11.9, Immature Gran % (Auto) 0.300, Neut % (Auto) 47.7, Lymph % (Auto) 43.4 H, Runnels % (Auto) 7.0, Eos % (Auto) 0.8, Baso % (Auto) 0.8, Absolute Neuts (auto) 3.6, Absolute Lymphs (auto) 3.24, Nucleated RBC % 0 01/05/23 06:26: POC Glucose 160 H 01/05/23 06:40: Sodium 140, Potassium 3.0 L, Chloride 109 H, Carbon Dioxide 26.0, Anion Gap 5, BUN 16, Creatinine 1.16, Estim Creat Clear Calc 52.24, Est GFR (MDRD) Af Amer 80, Est GFR (MDRD) Non-Af 66, BUN/Creatinine Ratio 13.8, Glucose 144 H, Calcium 8.5, Total Bilirubin 0.60, AST 21, ALT 26, Alkaline Phosp hatase 85, Total Protein 6.2 L, Albumin 3.0 L, Globulin 3.2, Albumin/Globulin Ratio 0.9 01/05/23 08:00: POC Glucose 131 H 01/05/23 09:20: POC Glucose 160 H 01/05/23 15:21: POC Glucose 417 H ABG Data ABG results: ABG 01/04/23 19:40 Specimen Type SYLVESTER Sample Site Not entered VBG pH 7.39 VBG pO2 40 VBG HCO3 25 VBG Total CO2 26 VBG O2 Sat (Calc) 74 H VBG Base Excess 0 POC Mix VBG pCO2 Pt Tmp 40.9 L O2 Delivery Device Room Air Radiography Diagnostic Testing: Radiology Impression Chest X-Ray 01/04/23 19:21 IMPRESSION: No definite acute or significant abnormality seen. Electronically Signed: Reji Desir MD at 19:43 EDT , Cervical Spine X-Ray 01/05/23 10:40 IMPRESSION: Mild degenerative changes of the cervical spine which are greatest at the C5-C6 level.. Electronically Signed: Mikal Zavaleta MD at 16:03 EDT , Physical Exam Const alert and oriented x3 Constitutional Narrative: Mild distress due to the numbness and tingling in the right arm. HEENT normocephalic, head/scalp atraumatic, moist oral mucous membranes and oropharynx normal Eyes PERRL and EOMs intact bilaterally Neck no lymphadenopathy and supple Lymph Lymphatic: no lymphadenopathy noted and no lymphedema noted Resp normal respiratory effort, normal air movement and clear to auscultation bilaterally Cardio regular rate, regular rhythm, S1 normal heart sound, S2 normal heart sound and no murmurs GI normal to inspection, nondistended, normoactive bowel sounds, soft to palpation, non-tender and non-distended Extremity normal capillary refill, no clubbing, cyanosis or edema and no calf tenderness Skin General Skin Exam: no breakdown Neuro CN's II-XII intact bilaterally, no focal motor deficits, no sensory deficits noted and deep tendon reflexes 2+ bilaterally Neuro Narrative: keeps clutching his RUE due to pain and tingling. power in RUE is 5/5. Motor Exam: strength 5/5 throughout Psych thought process normal and cooperative Appearance: appropriate Assessment & Plan Assessment/Plan (1) HHNC (hyperglycemic hyperosmolar nonketotic coma): PLAN: Plan #HHS in a known diabetic due to noncompliance * Blood sugar was in the 600s on admission. Blood sugars have trended down and are in the 160s. * Anion gap was not elevated and ketones was negative. * Being hydrated with IV fluid normal saline 125 cc/h. * Put on subcu Lantus 30 units twice daily. DC insulin drip. * A1c is 14.8. Patient not compliant with his insulin. We will get clinical educator consult: Importance of compliance. * High-dose sliding scale #Right arm numbness and tingling * This is not new and was present during previous admissions in 2021. Work-up at that time for stroke was negative. * He also saw neurology in July 2021 and the etiology of his symptoms was not clear. There was concern for mild to moderate dementia as well as depression and cognitive decline. * He did see neurology again on outpatient basis in April 2022 and his right- sided symptoms were not seen to have a clear precipitating etiology. * Had cervical spine MRI but the records of this are not available in the EMR. * Cervical spine MRI done today showed mild degenerative changes of the cervical spine greatest at C5-C6 level. To follow-up with neurology on outpatient basis. We will start patient on gabapentin as this could be due to neuropathy as well. * #History of CVA: On aspirin and statin as well as Plavix #Hypertension: On metoprolol 25 mg twice daily. DVT prophylaxis: Lovenox * Charges/Coding Visit Charges Inpatient E&M: 60121 Subs Hosp L2
[2023-01-05] MEDS: Insulin Lispro 100 UNIT/ML INSULN.PEN 10 UNIT SC (16:08)
[2023-01-05 16:31] LABS: Bedside Glucose > 500 mg/dL (74-106)
[2023-01-05 16:31] LABS: Bedside Glucose 498 mg/dL (74-106)
[2023-01-05 17:21] LABS: Bedside Glucose 322 mg/dL (74-106)
[2023-01-05] MEDS: Gabapentin 100 MG Capsule PO (17:51)
[2023-01-05] MEDS: Insulin Lispro 100 UNIT/ML INSULN.PEN SC ×2 (17:51→22:20)
[2023-01-05] MEDS: Atorvastatin Calcium 40 MG Tablet PO (22:17)
[2023-01-05 23:12] LABS: Bedside Glucose 207 mg/dL (74-106)
[2023-01-06] VITALS (10 sets, daily range): BP systolic 115–149; BP diastolic 79–93; PULSE 51–58; RESP 16–22; TEMP 35.8–37; O2SAT 97–100; BMI 21.9
[2023-01-06] MEDS: 0.9% Normal Saline (1000mL) 1,000 ML 150 ML IV ×2 (03:25→09:38)
[2023-01-06 03:32] LABS: Absolute Lymphocyte Count 3.18 X10^3/uL (0.83-4.51); Absolute Neutrophil Count 2.6 X10^3/uL (2.0-7.7); Basophil# 0.05 X10^3/uL; Basophil% 0.8 % (0-1); Eosinophil# 0.13 X10^3/uL; Hematocrit 34.7 % (40-54); Hemoglobin 11.1 g/dL (13.0-16.5); Lymphocyte # 3.18 X10^3/ul (0.83-4.51); Lymphocyte % 49.5 % (19-41); Mean Corpuscular Hgb 28.7 pg (27.0-32.0); Mean Corpuscular Volume 89.7 fL (80-94); Mean Platelet Vol. 11.7 fl (6.2-12.0); Monocyte# 0.48 X10^3/uL; Monocyte% 7.5 % (0-10); NRBC Flagged by Analyzer 0 % (0-5); Neutrophil # 2.57 X10^3/uL (2.7-7.7); Platelet Count 122 K/mm3 (150-450); RBC Distribution Width CV 11.9 % (11.6-14.6); RBC Distribution Width SD 38.5 fl (35.1-43.9); Red Blood Count 3.87 M/mm3 (4.6-6.2); White Blood Count 6.4 K/mm3 (4.4-11.0)
[2023-01-06 03:47] LABS: Anion Gap 5 (5-15); BUN 21 mg/dL (7-18); BUN/Creat Ratio 20.2 RATIO (10-20); Calcium,Total 7.9 mg/dL (8.5-10.1); Chloride 115 mmol/L (98-107); Creatinine, Serum 1.04 mg/dL (0.70-1.30); EST Glomerular Filtration Rate 75 mL/min (>60); Est Glom Filt Rate - Afr Amer 91 mL/min (>60); Estimated Creatinine Clearance 58.27 ml/min; Glucose 152 mg/dL (74-106); Potassium 3.4 mmol/L (3.5-5.1); Sodium Level 142 mmol/L (136-145)
[2023-01-06] MEDS: Aspirin E.C. 81 MG Tablet PO (09:25)
[2023-01-06] MEDS: Heparin Injection (Vial) 5,000 UNIT/ML VIAL 5000 UNIT SC ×2 (09:25→20:49)
[2023-01-06] MEDS: Clopidogrel Bisulfate 75 MG Tablet PO (09:25)
[2023-01-06] MEDS: Potassium Chloride Oral Tablet 20 MEQ 40 MEQ PO (09:32)
[2023-01-06] MEDS: Gabapentin 100 MG Capsule PO ×2 (09:32→13:19)
[2023-01-06] MEDS: Pantoprazole Sodium 40 MG in 0.9% Normal Saline (100mL MB+) 100 ML 330 MG IV (09:38)
[2023-01-06 09:44] LABS: Bedside Glucose 217 mg/dL (74-106)
[2023-01-06] MEDS: Metoprolol Tartrate 25 MG Tablet PO (09:48)
[2023-01-06] MEDS: Acetaminophen 325 MG Tablet 650 MG PO (10:37)
[2023-01-06] MEDS: Insulin Lispro 100 UNIT/ML INSULN.PEN SC ×4 (10:37→20:52)
[2023-01-06] MEDS: Insulin Glargine-YFGN 100 UNIT/ML Pen 10 UNIT SC ×2 (10:40→20:50)
--- NOTE | 2023-01-06 12:45 | CASEMGMT ---
Addendum entered by Tresa Magaña 01/06/23 14:34: While RN CM in room w/pt and family earlier during assessment, pt c/o ongoing numbness to right side of body and dizziness, per translation by dtr. He and family state this began a couple days ago. Dr Elizondo notified via Backline. Addendum entered by Tresa Magaña 01/06/23 14:32: Order placed for C: SN, PT/OT, and ST. Call to Kelsey @ [facility] and referral made. Original Note: .RN?CM?INTERIOR WIRER?CM?to room to meet with patient and family for initial transition planning/care coordination?assessment.?RN?CM?introduced self and role at [facility].? Pt does not speak Icelandic. Assessment completed w/pt's dtr, Gee, who did ask her brother and pt some questions to obtain further information and also translated information to pt for RN MAYELA. Care providers, pharmacy, and demographics verified/updated at this time. PCP: Dr Davis Specialists: MANUEL/Cardiology, Dr Gross-endocrinology Preferred Pharmacy: [facility] Insurance: [facility] A/B Prescription Benefit:?none Living Will/HPOA:? Pt does not currently have LW/HCPOA and Gee states they would like SW to meet w/pt to complete AD. SW, Hiral, made aware. She was made aware if SW unable to meet w/pt prior to discharge that this can be completed as an OP w/SW. She voices understanding. LNOK: , Larisa. 3 adult children. Dtr, Gee. Son, Amadeo. Living Arrangements: Lives w/ in 2-story home w/one step to enter. FFSU. Dtr states, when pt @ his baseline, that he is indep w/ADL's and IADL's and had been managing his medications. Although, she states she does not think he has been managing them correctly and his is not able to help with this either. Dtr states she lives close and she can be more involved and can monitor pt's medications more closely once he returns home. She states she does take pt to his appts. Transportation: daughter DME: ?Pt has the following DME:?shower chair, functioning glucometer. Dtr states she is pretty sure pt has all the diabetic supplies, insulin, and meds needed @ home, but she states plans to check on this to make sure. Dtr states pt does have a cane and walker available, but does not typically use these. Dtr?states no need for further DME at this time.? HHC/SNF: No hx of SNF. Has had [facility]HC in the past. Dtr states they would like HHC for pt and [facility]. Discussed MCR's criteria for being homebound and made aware if pt is not homebound by the time of discharge then he would not qualify for HHC and discussed possibility of OP therapy for PT/OT and Speech therapy. She voices understanding and states she can take pt to these appts for therapy, if OP is needed. Family wishes for pt to return home and states has no further concerns with him going home at time of discharge.? CM?to follow for any further discharge planning/needs.? Dtr voices no further concerns/needs at this time.? Advised her to ask for?CM?if any further questions/concerns/needs arise.? Voices understanding. PLAN:?Home w/HHC No Rx Benefits. CM to follow. Irasema BSN?RN?CM
[2023-01-06 12:51] LABS: Bedside Glucose 402 mg/dL (74-106)
--- NOTE | 2023-01-06 15:12 | PN_ITS ---
Subjective Subjective Patient seen and examined. Daughter is by his bedside. She is translating for him.Patient says he doesnt feel good. He complains of this episodic pain in his right arm, which is like a tingling and numbness. Daughter says this has been going on for a long while. 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 He had a stroke workup which was negative then. He was referred to neurology and last saw neurology in April. His blood sugars have improved. Review of systems is otherwise negative. Objective Data Objective Data Vital Signs: Vital Signs Temp Pulse Resp BP Pulse Ox O2 Del Method 96.5 F L 56 L 22 H 115/82 H 100 Room Air 01/06/23 15:00 01/06/23 15:00 01/06/23 15:00 01/06/23 15:00 01/06/23 15:00 01/06/23 15:00 Oxygen Delivery Method Room Air Weight: 136 lb 3.931 oz Body Mass Index (BMI) 21.9 Intake & Output: Intake and Output for Last 24 Hours 01/04/23 01/05/23 01/06/23 23:59 23:59 23:59 Intake Total 1124.65 / 1124.65 3611.75 / 3611.75 2225.0 / 2225.0 Output Total 395 / 770 1225 / 1225 Balance 1124.65 / 1124.65 3216.75 / 2841.75 1000.0 / 1000.0 Lab / Micro Data 01/06/23 03:19 01/06/23 03:19 Labs: Laboratory Results - last 24 hr 01/04/23 20:20: Urine RBC 0 SEEN, Urine WBC 0 SEEN, Ur Squamous Epith Cells 0 SEEN, Urine Bacteria 0 SEEN, Urine Mucus 0 SEEN 01/05/23 12:58: POC Glucose > 500 H* 01/05/23 13:01: POC Glucose 498 H* 01/05/23 15:21: POC Glucose 417 H 01/05/23 17:01: POC Glucose 322 H 01/05/23 22:20: POC Glucose 207 H 01/06/23 03:19: WBC 6.4, RBC 3.87 L, Hgb 11.1 L, Hct 34.7 L, MCV 89.7, MCH 28.7, MCHC 32.0 D, RDW Std Deviation 38.5, RDW Coeff of Chris 11.9, Plt Count 122 L, MPV 11.7, Immature Gran % (Auto) 0.200, Neut % (Auto) 40.0 L, Lymph % (Auto) 49.5 H, [place] % (Auto) 7.5, Eos % (Auto) 2.0, Baso % (Auto) 0.8, Absolute Neuts (auto) 2.6, Absolute Lymphs (auto) 3.18, Nucleated RBC % 0, Sodium 142, Potassium 3.4 L, Chloride 115 H, Carbon Dioxide 22.0, Anion Gap 5, BUN 21 H, Creatinine 1.04, Estim Creat Clear Calc 58.27, Est GFR (MDRD) Af Amer 91, Est GFR (MDRD) Non-Af 75, BUN/Creatinine Ratio 20.2 H, Glucose 152 H, Calcium 7.9 L 01/06/23 09:23: POC Glucose 217 H 01/06/23 12:27: POC Glucose 402 H Radiography Diagnostic Testing: Radiology Impression Cervical Spine X-Ray 01/05/23 10:40 IMPRESSION: Mild degenerative changes of the cervical spine which are greatest at the C5-C6 level.. Electronically Signed: Mikal Zavaleta MD at 16:03 EDT , Physical Exam Const alert and oriented x3 Constitutional Narrative: Mild to moderate distress due to the numbness and tingling in the right arm. General Appearance: cooperative HEENT normocephalic, head/scalp atraumatic, moist oral mucous membranes and oropharynx normal Eyes PERRL and EOMs intact bilaterally Neck no lymphadenopathy and supple Lymph Lymphatic: no lymphadenopathy noted and no lymphedema noted Resp normal respiratory effort, normal air movement and clear to auscultation bilaterally Cardio regular rate, regular rhythm, S1 normal heart sound, S2 normal heart sound and no murmurs GI normal to inspection, nondistended, normoactive bowel sounds, soft to palpation, non-tender and non-distended Extremity normal capillary refill, no clubbing, cyanosis or edema and no calf tenderness Skin General Skin Exam: no breakdown Neuro CN's II-XII intact bilaterally, no focal motor deficits, no sensory deficits noted and deep tendon reflexes 2+ bilaterally Neuro Narrative: keeps clutching his RUE due to pain and tingling. power in RUE is 5/5. Motor Exam: strength 5/5 throughout Psych thought process normal and cooperative Psych Narrative: uncomfortable due to tingling and pain in RUE Assessment & Plan Assessment/Plan (1) HHNC (hyperglycemic hyperosmolar nonketotic coma): PLAN: Plan #HHS in a known diabetic due to noncompliance * resolved. Blood sugars are down in the 200s * on lantus 10 units bid. * patient not complaint with his lantus, and A1C was 14.8. * ISS. accuchecks ACHS * High-dose sliding scale #Right arm numbness and tingling * This is not new and was present during previous admissions in 2021. Work-up at that time for stroke was negative. * He also saw neurology in July 2021 and the etiology of his symptoms was not clear. There was concern for mild to moderate dementia as well as depression and cognitive decline. * He did see neurology again on outpatient basis in April 2022 and his right- sided symptoms were not seen to have a clear precipitating etiology. * Had cervical spine MRI but the records of this are not available in the EMR. * Cervical spine xray done yesterday showed mild degenerative changes of the cer vical spine greatest at C5-C6 level. To follow-up with neurology on outpatient basis. * Started on gabapentin yesterday. Will increase to 300 mg 3 times daily. * will get cervical spine MRI also to evaluate further * #History of CVA: On aspirin and statin as well as Plavix #Hypertension: On metoprolol 25 mg twice daily. DVT prophylaxis: Lovenox * Charges/Coding Visit Charges Inpatient E&M: 17710 Subs Hosp L2
--- NOTE | 2023-01-06 15:22 | MRI_ITS ---
EXAM: MR CERVICAL SPINE WITHOUT INTRAVENOUS CONTRAST CLINICAL INDICATION: severe neck and RUE pain, numbness/tingling RUE, pt was breathing heavy during exam due to pain TECHNIQUE: Multiplanar and multisequence MR images of the cervical spine without intravenous contrast were performed. COMPARISON: No relevant prior studies available. FINDINGS: VERTEBRAE: Normal vertebral bodies and posterior elements. Normal alignment. Normal craniocervical junction and cervicothoracic junction. No spondylolisthesis. There is preservation of the normal cervical lordosis. SPINAL CORD: Unremarkable in signal and morphology. SOFT TISSUES: Normal. No prevertebral soft tissue swelling. LYMPH NODES: Normal. There is no cervical adenopathy. DISCS/SPINAL CANAL/NEURAL FORAMINA: C2-C3: Mild disc space narrowing. No disc protrusion. Normal spinal canal. Normal neuroforamina. C3-C4: Normal disc height and morphology. Normal spinal canal. Mild narrowing of the left neural foramen related to facet arthropathy. C4-C5: Disc space narrowing. No disc protrusion. Normal spinal canal. Normal neuroforamina. C5-C6: Disc space narrowing. No disc protrusion mild narrowing of the neural foramina related to uncinate joint hypertrophy. Normal spinal canal. C6-C7: Disc space narrowing. No disc protrusion. Normal spinal canal. Mild narrowing of the left neural foramen related to uncinate joint hypertrophy. C7-T1: Mild disc space narrowing. Normal spinal canal. Normal neuroforamina. MRI/Spine Cervical (Routine) IMPRESSION: Mild spondylosis. No spinal stenosis. Mild neural foraminal narrowing as described.. Electronically Signed: Buddy Carbajal MD at 8:33 EDT ,
[2023-01-06] MEDS: Gabapentin 300 MG Capsule PO (16:10)
[2023-01-06 17:23] LABS: Bedside Glucose 194 mg/dL (74-106)
[2023-01-06] MEDS: Atorvastatin Calcium 40 MG Tablet PO (20:53)
[2023-01-06 23:17] LABS: Bedside Glucose 157 mg/dL (74-106)
[2023-01-07 02:45] VITALS: BP 123/77; PULSE 58; RESP 16; TEMP 36.7; O2SAT 100
[2023-01-07] MEDS: Insulin Lispro 100 UNIT/ML INSULN.PEN SC ×2 (05:58→12:26)
[2023-01-07 06:26] LABS: Bedside Glucose 205 mg/dL (74-106)
[2023-01-07 07:56] VITALS: BP 146/95; PULSE 57; RESP 16; TEMP 36.6; O2SAT 100
[2023-01-07] MEDS: Gabapentin 300 MG Capsule PO ×2 (08:00→12:33)
[2023-01-07] MEDS: Aspirin E.C. 81 MG Tablet PO (08:01)
[2023-01-07 08:14] LABS: Absolute Lymphocyte Count 2.55 X10^3/uL (0.83-4.51); Basophil# 0.04 X10^3/uL; Basophil% 0.6 % (0-1); Eosinophil# 0.12 X10^3/uL; Eosinophils% 1.7 % (0-5); Hemoglobin 12.3 g/dL (13.0-16.5); Lymphocyte # 2.55 X10^3/ul (0.83-4.51); Lymphocyte % 35.8 % (19-41); Mean Corp Hgb Conc 32.4 g/dL (32-36); Mean Corpuscular Hgb 28.7 pg (27.0-32.0); Mean Corpuscular Volume 88.6 fL (80-94); Monocyte# 0.42 X10^3/uL; Monocyte% 5.9 % (0-10); NRBC Flagged by Analyzer 0 % (0-5); Neutrophil # 3.97 X10^3/uL (2.7-7.7); Neutrophil % 55.7 % (47-70); Platelet Count 127 K/mm3 (150-450); RBC Distribution Width SD 38.5 fl (35.1-43.9); Red Blood Count 4.29 M/mm3 (4.6-6.2); White Blood Count 7.1 K/mm3 (4.4-11.0)
[2023-01-07 08:20] VITALS: O2SAT 95
[2023-01-07 09:07] LABS: Anion Gap 4 (5-15); BUN 20 mg/dL (7-18); BUN/Creat Ratio 17.1 RATIO (10-20); Calcium,Total 8.8 mg/dL (8.5-10.1); Chloride 114 mmol/L (98-107); Creatinine, Serum 1.17 mg/dL (0.70-1.30); EST Glomerular Filtration Rate 66 mL/min (>60); Est Glom Filt Rate - Afr Amer 80 mL/min (>60); Estimated Creatinine Clearance 52.82 ml/min; Glucose 190 mg/dL (74-106); Potassium 3.7 mmol/L (3.5-5.1); Sodium Level 142 mmol/L (136-145)
[2023-01-07 09:18] VITALS: PULSE 59
[2023-01-07] MEDS: Acetaminophen 325 MG Tablet 650 MG PO (09:32)
[2023-01-07] MEDS: Clopidogrel Bisulfate 75 MG Tablet PO (09:33)
[2023-01-07] MEDS: Insulin Glargine-YFGN 100 UNIT/ML Pen 10 UNIT SC (09:33)
[2023-01-07 09:34] VITALS: PULSE 57
[2023-01-07] MEDS: Heparin Injection (Vial) 5,000 UNIT/ML VIAL 5000 UNIT SC (09:58)
[2023-01-07] MEDS: Pantoprazole Sodium 40 MG Tablet PO (10:39)
--- NOTE | 2023-01-07 11:12 | DS.PCM_ITS ---
Providers Date of Admission: 01/04/23 Date of Discharge: 01/07/23 Primary Care Physician: Dr. Magnolia Davis MD Reason For Visit: HHS, AUGIE Diagnosis Discharge Diagnosis (1) HHNC (hyperglycemic hyperosmolar nonketotic coma): Status: Acute Code(s): E11.01 - Type 2 diabetes mellitus with hyperosmolarity with coma Plan #HHS in a known diabetic due to noncompliance * resolved. Blood sugars are down in the 200s * on lantus 10 units bid. * patient not complaint with his lantus, and A1C was 14.8. * ISS. accuchecks ACHS * High-dose sliding scale #Right arm numbness and tingling * This is not new and was present during previous admissions in 2021. Work-up at that time for stroke was negative. * He also saw neurology in July 2021 and the etiology of his symptoms was not clear. There was concern for mild to moderate dementia as well as depression and cognitive decline. * He did see neurology again on outpatient basis in April 2022 and his right- sided symptoms were not seen to have a clear precipitating etiology. * Had cervical spine MRI but the records of this are not available in the EMR. * Cervical spine xray done yesterday showed mild degenerative changes of the cervical spine greatest at C5-C6 level. To follow-up with neurology on outpatient basis. * Started on gabapentin yesterday. Will increase to 300 mg 3 times daily. * will get cervical spine MRI also to evaluate further * #History of CVA: On aspirin and statin as well as Plavix #Hypertension: On metoprolol 25 mg twice daily. DVT prophylaxis: Lovenox * Medications at Discharge Home Medications blood-glucose meter (FreeStyle Flash System kit) #1 ea 07/23/21 lancets 30 gauge and blood glucose strips combo pack #50 ea 07/23/21 needles, chris disposable 22 x 1 #50 ea 07/23/21 aspirin 81 mg tablet,delayed release 81 mg PO DAILY@0800 #90 tabs 11/17/21 metformin 500 mg tablet 500 mg PO BID #180 tabs 11/19/21 atorvastatin 40 mg tablet 40 mg PO QHS #90 tabs 12/14/22 clopidogrel 75 mg tablet 75 mg PO DAILY #90 tabs 12/14/22 lisinopril 10 mg tablet 10 mg PO DAILY #90 tabs 12/14/22 metoprolol tartrate 25 mg tablet 25 mg PO BID #180 tabs 12/14/22 polyethylene glycol 3350 17 gram/dose oral powder (Miralax) 4 g PO .PRN 12/14/22 gabapentin 300 mg capsule 300 mg PO TIDCM #90 caps 01/07/23 insulin glargine 100 unit/mL (3 mL) subcutaneous pen (Lantus Solostar U-100 Insulin) 15 unit (0.15 mL) subcut BID #15 mL 01/07/23 Hospital Course Operations None Procedures None Summary of Care Provided Minutes Spent on Discharge: 55 Hospital Course: Patient is a 67 y/o male with a PMH as outlined who was admitted via the ED on 01/04/2023 with a complaint of blurred vision, increased thirst as well as urination and bilateral tingling to his hands. Labs were significant for blood glucose of 692 and elevated urine glucose, as well as A1C of 14.8; CXR showed no acute cardiopulmonary pathology, and EKG showed no acute ST changes. BMP showed no elevated anion gap and there were no serum ketones. HE was admitted and managed for HHS. He was admitted to the ICU and placed on insulin drip. Blood sugars trended down and he was switched to subcu Lantus 10 units twice daily. He was placed on a diet and IV fluids was discontinued. Hospital course was complicated by pain, tingling and occasional numbness in his right upper extremity. This was manual and extended back to 2020 per EMR when patient was in the hospital. He had had a neuro work-up at that time which was negative. He had been following up with neurology on outpatient basis and last saw neurology in April 2022. He was started on gabapentin. Also concerned about possible cervical stenosis so he had a cervical spine MRI which showed mild neuroforaminal narrowing but no spinal stenosis and only mild spondylosis. His symptoms improved and he felt better. He had apparently not been taking his insulin because his friend had told him insulin was harmful. Patient was counseled about importance of taking insulin and being compliant with his medication. Was discharged home on 01/07/2023 on subcu Lantus 15 units twice daily. He is follow-up with his primary care doctor and was referred to endocrinology to establish care for his poorly controlled diabetes. Patient seen and examined prior to discharge. His daughter was present for which she helped to interpret. He felt much better today and had no complaints. He had an uneventful night. Review of systems otherwise negative. Labs and vitals reviewed. Home medication reviewed and reconciled. Physical Exam Const alert, oriented x3 and no apparent distress Constitutional Narrative: Mild to moderate distress due to the numbness and tingling in the right arm. General Appearance: cooperative and comfortable Orientation / Consciousness: awake Exam Limitations: no limitations HEENT normocephalic, head/scalp atraumatic, hearing grossly normal bilaterally, moist oral mucous membranes and oropharynx normal Mouth: oral and palatal mucosa normal Eyes PERRL, EOMs intact bilaterally and conjunctivae normal Neck no lymphadenopathy and supple Lymph Lymphatic: no lymphadenopathy noted and no lymphedema noted Resp normal respiratory effort, normal air movement and clear to auscultation bilaterally Cardio regular rate, regular rhythm, S1 normal heart sound, S2 normal heart sound and no murmurs GI normal to inspection, nondistended, normoactive bowel sounds, soft to palpation, non-tender and non-distended Extremity normal to inspection, full ROM, normal capillary refill, no clubbing, cyanosis or edema and no calf tenderness Skin no rashes or lesions noted General Skin Exam: no breakdown Neuro oriented x3, CN's II-XII intact bilaterally, moves all extremities, no focal motor deficits, no sensory deficits noted and deep tendon reflexes 2+ bilaterally Sensorium / Orientation: awake Motor Exam: strength 5/5 throughout Psych thought process normal and cooperative Appearance: appropriate Weight / BMI Weight Weight: 136 lb 3.931 oz Body Mass Index (BMI) 21.9 ABG / Lab / Microbiology Data 01/07/23 08:00 01/07/23 08:00 Laboratory: Laboratory Results - last 24 hr 01/06/23 12:27: POC Glucose 402 H 01/06/23 17:02: POC Glucose 194 H 01/06/23 20:42: POC Glucose 157 H 01/07/23 05:57: POC Glucose 205 H 01/07/23 08:00: WBC 7.1, RBC 4.29 L, Hgb 12.3 L, Hct 38.0 L, MCV 88.6, MCH 28.7, MCHC 32.4, RDW Std Deviation 38.5, RDW Coeff of Chris 12.0, Plt Count 127 L, MPV 12.0, Immature Gran % (Auto) 0.300, Neut % (Auto) 55.7, Lymph % (Auto) 35.8, [place] % (Auto) 5.9, Eos % (Auto) 1.7, Baso % (Auto) 0.6, Absolute Neuts (auto) 4.0, Absolute Lymphs (auto) 2.55, Nucleated RBC % 0, Sodium 142, Potassium 3.7, Chloride 114 H, Carbon Dioxide 24.0, Anion Gap 4 L, BUN 20 H, Creatinine 1.17, Estim Creat Clear Calc 52.82, Est GFR (MDRD) Af Amer 80, Est GFR (MDRD) Non-Af 66, BUN/Creatinine Ratio 17.1, Glucose 190 H, Calcium 8.8 Radiography Diagnostic Testing: Radiology Impression Cervical Spine MRI 01/06/23 15:22 IMPRESSION: Mild spondylosis. No spinal stenosis. Mild neural foraminal narrowing as described.. Electronically Signed: Buddy Carbajal MD at 8:33 EDT , D/C Instructions Discharge Diet: Low fat / Low cholesterol and 1800 Calorie Control Diet Weight Bearing Status: Weight bearing as tolerated Call your doctor if you observe: Fever of 101 or Higher, Shortness of breath, Dizziness, Swelling in the ankles, Chest pain, Increased palpitations (irregular heartbeat) and Uncontrolled pain Meaningful Use Info Meaningful Use Diagnoses (Choose all that apply): None applicable Discharge Plan Admission Admit Date/Time: 01/04/23 21:10 Primary Reason for Your Visit: HHS in poorly controlled diabetic Attending Provider: Cynthia Elizondo Primary Care Provider: Magnolia Davis Consulting Providers: Charity Carpenter Instructions Patient Instructions: Diabetes: Caring for Your Body, Diabetes Glossary Discharge Orders/Prescriptions Prescriptions: New gabapentin 300 mg Capsule 300 mg PO TIDCM Qty: 90 1RF insulin glargine [Lantus Solostar U-100 Insulin] 100 unit/mL (3 mL) insulin pen 15 unit subcut BID Qty: 15 3RF Continued aspirin 81 mg tablet,delayed release (DR/EC) 81 mg PO DAILY@0800 Qty: 90 3RF polyethylene glycol 3350 [Miralax] 17 gram/dose powder 4 g PO .PRN metoprolol tartrate 25 mg tablet 25 mg PO BID Qty: 180 3RF lisinopril 10 mg tablet 10 mg PO DAILY Qty: 90 3RF clopidogrel 75 mg tablet 75 mg PO DAILY Qty: 90 3RF atorvastatin 40 mg tablet 40 mg PO QHS Qty: 90 3RF (DME) lancets-blood glucose strips 30 gauge combo pack See Rx Instructions .ROUTE .MEDSUPPLY Qty: 50 0RF Rx Instructions: As directed (DME) needles, chris disposable 22 x 1 needle See Rx Instructions .ROUTE .MEDSUPPLY Qty: 50 0RF Rx Instructions: As directed (DME) blood-glucose meter [FreeStyle Flash System] Kit See Rx Instructions .ROUTE .MEDSUPPLY Qty: 1 0RF Rx Instructions: As directed metformin 500 mg tablet 500 mg PO BID Qty: 180 3RF Discontinued insulin glargine [Lantus Solostar U-100 Insulin] 100 unit/mL (3 mL) insulin pen 10 unit subcut QPM Qty: 15 2RF Referrals / Follow Up: Magnolia Davis MD [Primary Care Provider] - Within 2 Weeks Jony Gross MD [Med Staff - Courtesy Staff] - Within 2 Weeks (see to establish endocrinology care for diabetes.) Disposition Disposition (needs filled in before D/C Order can be placed): Home, Self Care Charges/Coding Visit Charges Inpatient E&M: 38189 Disch Hosp >30min
--- NOTE | 2023-01-07 12:38 | CASEMGMT ---
PALLAVI PEDRO notified that [facility] can see pt for SOC on Tuesday. PALLAVI PEDRO into pt room, pt sitting up in chair with eyes closed, pt dtr present in room. She asks not to wake pt. She is aware that [facility] will start on Tuesday. She would like them to call her to schedule appt so she can be available to translate. If she does not answer, her brother can be called who is on face sheet. Message to Kelsey at [facility] to make aware. Dtr Gee Rojas [phone].
[2023-01-07 12:47] LABS: Bedside Glucose 326 mg/dL (74-106)
[2023-01-07 14:33] VITALS: BP 120/83; PULSE 70; RESP 18; TEMP 37.2; O2SAT 98
== END 2023-01-07 14:46 | disposition home or self-care (01) | DRG 638 ==
LOC: ED 21:08 → ICU 21:23 → MS3 01-06 16:55
PROVIDERS: Admitting Provider Family Medicine; Emergency Provider Emergency Medicine; PCP Family Medicine; Visit Provider Student in an Organized Health Care Education/Training Program
DX: E11.00 Type 2 diabetes mellitus with hyperosmolarity without nonketotic hyperglycemic-hyperosmolar coma (NKHHC) (principal); N17.9 Acute kidney failure, unspecified; Z79.4 Long term (current) use of insulin; F03.A0 Unspecified dementia, mild, without behavioral disturbance, psychotic disturbance, mood disturbance, and anxiety; I10 Essential (primary) hypertension; E78.5 Hyperlipidemia, unspecified; I25.10 Atherosclerotic heart disease of native coronary artery without angina pectoris; E86.0 Dehydration; M47.812 Spondylosis without myelopathy or radiculopathy, cervical region; T38.3X6A Underdosing of insulin and oral hypoglycemic [antidiabetic] drugs, initial encounter; Z91.128 Patient's intentional underdosing of medication regimen for other reason; Z79.82 Long term (current) use of aspirin; Z79.84 Long term (current) use of oral hypoglycemic drugs; Z79.02 Long term (current) use of antithrombotics/antiplatelets; Z87.891 Personal history of nicotine dependence; Z95.5 Presence of coronary angioplasty implant and graft
CPT/HCPCS: 36415; 71045; 72050; 72141; 80048; 80053; 81001; 82009; 82803; 82962; 83036; 83735; 83930; 84100; 85025; 92507; 92523; 93005; 94668; 97110; 97116; 97162; 97166; 97530; 97802; 99252; 99285; J7030; J7050; A4216; G0463

== ENCOUNTER → 2023-01-26 | Outpatient (CLI) | payer MEDICARE, SELFPAY ==
[2023-01-26 17:46] LABS: Color, Urine Yellow (Yellow); Glucose, Dipstick 250 mg/dl (Normal); Ketone-Dipstick Negative (Negative); Leukocyte Esterase-Dipstick Negative /ul (Negative); Nitrite-Dipstick Negative (Negative); Occult Blood-Urine Negative /ul (Negative); Protein-Dipstick Negative (Negative); Specific Gravity, Urine 1.005 (1.002-1.030); Urine Bilirubin Dipstick Negative (Negative); Urine Clarity Clear (Clear); Urine Urobilinogen Normal (Normal)
== END | disposition home or self-care (01) ==
LOC: LABSPEC 14:44
PROVIDERS: PCP Family Medicine; Visit Provider Family Medicine
DX: R30.0 Dysuria (principal)
CPT/HCPCS: 81002; 87086

== ENCOUNTER → 2023-02-01 | Outpatient (CLI) | payer MEDICARE, SELFPAY ==
[2023-02-01 12:17] LABS: PSA,Total - Annual Screen 0.48 ng/mL (0.00-4.00)
== END | disposition home or self-care (01) ==
LOC: OLS.ABSOLU 11:00 → LAB 11:05
PROVIDERS: PCP Family Medicine; Referring Provider Urology; Visit Provider Urology
DX: Z12.5 Encounter for screening for malignant neoplasm of prostate (principal)
CPT/HCPCS: 36415; 84153; G0103

== ENCOUNTER → 2023-02-11 | Outpatient (CLI) | payer MEDICARE, SELFPAY ==
--- NOTE | 2023-02-11 13:27 | MRI_ITS ---
STUDY: MRI BRAIN WITH AND WITHOUT CONTRAST REASON FOR EXAM: Male, 67 years old. R side weakness, R side hearing loss TECHNIQUE: Standardized multiplanar fat and water weighted pulse sequences were obtained. 13 CC IV CLARISCAN was administered for the contrast portion of the examination. COMPARISON: July 22, 2021 FINDINGS: Normal size of the ventricles and extra-axial spaces for the patient''s age. There are multiple white matter hyperintensities, distributed throughout the deep white matter tracts of the cerebral hemispheres, consistent with moderate chronic white matter ischemic changes. There is no evidence for recent intracranial ischemia or other cause of cytotoxic edema on diffusion weighted imaging (DWI). Normal T2* images of the brain without demonstrated susceptibility artifact. There is no demonstrated hemosiderin stain. Normal bilateral basal ganglia. Normal thalami. There is no extra-axial fluid accumulation. Normal flow voids within the major intracranial circulation suggesting patency by spin echo criteria. Normal venous enhancement. There is no enhancing intra-axial or extra-axial abnormality. There is enlargement of the sella turcica with increased CSF within the sella and flattening of the pituitary gland consistent with an empty sellar syndrome. Normal infundibular stalk, hypothalamus, and optic chiasm. Normal tectal plate and pineal gland. Normal midbrain, diana and medulla. Normal cerebellum. Normal basal cisterns. Normal bilateral temporal bones. Normal bilateral internal auditory canals. There are bilateral ocular lens implants with otherwise normal intraorbital contents. Normal visualized paranasal sinuses. Normal calvarium and skull base. Normal visualized soft tissue structures. Normal visualized upper cervical spine. MRI/Brain W/WO Contrast
== END | disposition home or self-care (01) ==
LOC: MRI 13:07
PROVIDERS: PCP Family Medicine; Referring Provider Family Medicine; Visit Provider Family Medicine
DX: R53.1 Weakness (principal); H91.8X1 Other specified hearing loss, right ear
CPT/HCPCS: 70553; A9575

== ENCOUNTER → 2023-06-17 | Outpatient (CLI) | payer MEDICARE, SELFPAY ==
[2023-06-17 12:47] LABS: Absolute Lymphocyte Count 2.86 X10^3/uL (0.83-4.51); Absolute Neutrophil Count 3.3 X10^3/uL (2.0-7.7); Basophil# 0.04 X10^3/uL; Basophil% 0.6 % (0-1); Eosinophil# 0.18 X10^3/uL; Eosinophils% 2.6 % (0-5); Hematocrit 39.8 % (40-54); Lymphocyte # 2.86 X10^3/ul (0.83-4.51); Lymphocyte % 41.7 % (19-41); Mean Corp Hgb Conc 32.7 g/dL (32-36); Mean Corpuscular Hgb 29.1 pg (27.0-32.0); Mean Corpuscular Volume 89.2 fL (80-94); Mean Platelet Vol. 12.6 fl (6.2-12.0); Monocyte# 0.44 X10^3/uL; Monocyte% 6.4 % (0-10); NRBC Flagged by Analyzer 0 % (0-5); Neutrophil # 3.32 X10^3/uL (2.7-7.7); Neutrophil % 48.4 % (47-70); Platelet Count 162 K/mm3 (150-450); RBC Distribution Width CV 12.7 % (11.6-14.6); RBC Distribution Width SD 41.1 fl (35.1-43.9); Red Blood Count 4.46 M/mm3 (4.6-6.2); White Blood Count 6.9 K/mm3 (4.4-11.0)
[2023-06-17 13:07] LABS: Anion Gap 6 (5-15); BUN 13 mg/dL (7-18); BUN/Creat Ratio 13.3 RATIO (10-20); Calcium,Total 9.3 mg/dL (8.5-10.1); Chloride 104 mmol/L (98-107); Creatinine, Serum 0.98 mg/dL (0.70-1.30); EST Glomerular Filtration Rate 81 mL/min (>60); Est Glom Filt Rate - Afr Amer 98 mL/min (>60); Glucose 316 mg/dL (74-106); Potassium 3.9 mmol/L (3.5-5.1); Sodium Level 138 mmol/L (136-145)
[2023-06-17 13:43] LABS: Hemoglobin A1c > 14.0 % (3.8-5.6)
== END | disposition home or self-care (01) ==
LOC: MTLAB 10:51
PROVIDERS: PCP Family Medicine; Referring Provider Family Medicine; Visit Provider Family Medicine
DX: E11.65 Type 2 diabetes mellitus with hyperglycemia (principal)
CPT/HCPCS: 36415; 80048; 83036; 85025

== ENCOUNTER → 2023-09-30 | Outpatient (CLI) | payer MEDICARE, SELFPAY ==
[2023-09-30 18:45] LABS: AST(SGOT) 12 U/L (15-37); Alanine Aminotransfer ALT/SGPT 21 U/L (16-61); Albumin, Serum 3.8 g/dL (3.2-5.0); Alkaline Phosphatase 196 U/L (45-117); Anion Gap 7 (5-15); BUN 20 mg/dL (7-18); BUN/Creat Ratio 13.3 RATIO (10-20); Calcium,Total 9.3 mg/dL (8.5-10.1); Chloride 99 mmol/L (98-107); EST Glomerular Filtration Rate 49 mL/min (>60); Est Glom Filt Rate - Afr Amer 60 mL/min (>60); Glucose 704 mg/dL (74-106); Potassium 4.3 mmol/L (3.5-5.1); Protein, Total 7.8 g/dL (6.4-8.2); Sodium Level 132 mmol/L (136-145)
[2023-09-30 19:26] LABS: Hemoglobin A1c > 14.0 % (3.8-5.6)
== END | disposition home or self-care (01) ==
LOC: BFHLAB 16:28
PROVIDERS: PCP Family Medicine; Referring Provider Family Medicine; Visit Provider Family Medicine
DX: E11.65 Type 2 diabetes mellitus with hyperglycemia (principal)
CPT/HCPCS: 36415; 80053; 83036

== ENCOUNTER → 2023-11-18 | Outpatient (CLI) | payer MEDICARE, SELFPAY ==
--- NOTE | 2023-11-18 12:03 | MRI_ITS ---
EXAM: MR HEAD WITHOUT INTRAVENOUS CONTRAST CLINICAL INDICATION: MENTAL STATUS CHANGE, WEAKNESS TECHNIQUE: Multiplanar and multisequence MR images of the brain were obtained without intravenous contrast. COMPARISON: MRI brain, 02/11/2023 FINDINGS: BRAIN AND EXTRA-AXIAL SPACES: There is non-specific periventricular and subcortical T2 and T2 hyperintensity which is most commonly related to chronic microvascular ischemic disease in a patient of this age. There is no mass, mass-effect, or shift of the midline structures. No evidence of acute infarct or acute intracranial hemorrhage. There is no evidence of pathologic extra-axial fluid. There is no hydrocephalus. Patent basal cisterns. Posterior fossa structures are unremarkable. SELLA: No significant abnormality. Normal sella turcica, pituitary gland, infundibular stalk, optic chiasm and hypothalamus. AUDITORY SYSTEM: No significant abnormality. The internal auditory canals are patent. BONES/JOINTS: No significant abnormality. No discrete lytic or blastic abnormalities. SINUSES: Medications retention cyst and/or polyp in the right maxillary sinus. MASTOID AIR CELLS: Normal as visualized. Clear. ORBITS: Bilateral ocular lens extraction presumptively for the treatment of cataracts. Otherwise, no acute orbital pathology. VASCULATURE: Normal as visualized. Normal flow voids in the major intracranial circulation. MRI/Brain without Contrast IMPRESSION: No acute findings in the head/brain. Chronic microvascular ischemic changes. Electronically Signed: Nicolas Weinstein DO at 12:15 EDT ,
== END | disposition home or self-care (01) ==
LOC: MRI 11:59
PROVIDERS: PCP Family Medicine; Referring Provider Family Medicine; Visit Provider Family Medicine
DX: R53.1 Weakness (principal)
CPT/HCPCS: 70551

== ENCOUNTER → 2023-12-15 | Outpatient (CLI) | payer MEDICARE, SELFPAY ==
--- NOTE | 2023-12-15 11:26 | RAD_ITS ---
STUDY: X-RAY - CERVICAL SPINE REASON FOR EXAM: Male, 68 years old. Neck pain. TECHNIQUE: 3 view(s) of the cervical spine were obtained on 4 images. COMPARISON: None FINDINGS: Osteopenia. Normal anterior atlantoaxial articulation. Normal odontoid process. Normal cervical lordosis. Moderate diffuse uncovertebral and facet sclerosis. Intervertebral disc space narrowing at C4-5, C5-6, C6-7 and C7-T1. Osteophytes most marked at C5-6 and C6-7. Normal soft tissues. RAD/Cerv Spine 2 or 3 Views IMPRESSION: Osteopenia with moderate lower cervical spondylosis. Electronically Signed: Grady Jenkins MD at 13:09 EDT ,
--- NOTE | 2023-12-15 11:26 | RAD_ITS ---
STUDY: X-RAY - LUMBAR SPINE REASON FOR EXAM: Male, 68 years old. Low back pain. TECHNIQUE: 2 view(s) of the lumbar spine were obtained. COMPARISON: None FINDINGS: Osteopenia. Normal lordosis. No scoliosis. Normal vertebral alignment. Diffuse mild to moderate lower thoracic and lumbosacral facet sclerosis. Intervertebral disc space narrowing at L1-2, L2-3, L3-4 and to the greatest degree L4-5 and L5-S1. Osteophytes most marked at L3-4 and L4-5. 5 mm in diameter calcification projected over the upper pole of the left kidney which may represent nephrocalcinosis. . RAD/Lumbar Spine 2 or 3 Views IMPRESSION: Osteopenia with mild lower thoracic and lumbosacral spondylosis most marked at L3-4 and L4-5. Electronically Signed: Grady Jenkins MD at 13:17 EDT ,
--- NOTE | 2023-12-15 11:26 | RAD_ITS ---
STUDY: X-RAY - RIGHT SHOULDER REASON FOR EXAM: Male, 68 years old. Bilateral shoulder pain. TECHNIQUE: 4 view(s) of the shoulder. COMPARISON: None. FINDINGS: Osteopenia. Mild arthrosis of the glenohumeral joint. Mild arthrosis of the AC joint. Normal acromion. Normal humeral head and visualized proximal humerus. Calcific tendinosis. Normal visualized pulmonary apex. RAD/Shoulder min 2 Views IMPRESSION: Osteopenia with osteoporosis of the glenohumeral and acromioclavicular joints with calcific tendinosis. Electronically Signed: Grady Jenkins MD at 13:06 EDT ,
--- NOTE | 2023-12-15 11:26 | RAD_ITS ---
STUDY: X-RAY - RIGHT KNEE REASON FOR EXAM: Male, 68 years old. Right knee pain. TECHNIQUE: 3 view(s) of the knee. COMPARISON: None. FINDINGS: Osteopenia. Small superior patellar spur. Moderate medial compartmental narrowing. Normal lateral femorotibial compartment. Mild arthrosis of the patellofemoral compartment. Small joint effusion. RAD/Knee 3 Views IMPRESSION: Osteopenia with patellar spur, moderate medial compartmental arthrosis, mild arthrosis of the patellofemoral compartment and small joint effusion. Electronically Signed: Grady Jenkins MD at 13:19 EDT ,
--- NOTE | 2023-12-15 11:28 | RAD_ITS ---
STUDY: X-RAY - LEFT SHOULDER REASON FOR EXAM: Male, 68 years old. Bilateral shoulder pain TECHNIQUE: 4 view(s) of the shoulder. COMPARISON: None. FINDINGS: Osteopenia. Mild arthrosis of the glenohumeral joint. Mild arthrosis of the AC joint. Normal acromion. Normal humeral head and visualized proximal humerus. Calcific tendinosis. Normal visualized pulmonary apex. RAD/Shoulder min 2 Views IMPRESSION: Osteopenia with osteoarthritic changes of the glenohumeral and acromioclavicular joints. Calcific tendinosis. Electronically Signed: Grady Jenkins MD at 13:07 EDT ,
[2023-12-15 16:15] LABS: ALB/GLOB Ratio 0.9 RATIO (0.9-2.4); AST(SGOT) 12 U/L (15-37); Alanine Aminotransfer ALT/SGPT 16 U/L (16-61); Albumin, Serum 3.6 g/dL (3.2-5.0); Alkaline Phosphatase 94 U/L (45-117); Anion Gap 10 (5-15); BUN 17 mg/dL (7-18); Calcium,Total 9.7 mg/dL (8.5-10.1); Chloride 103 mmol/L (98-107); Creatinine, Serum 1.13 mg/dL (0.70-1.30); EST Glomerular Filtration Rate 68 mL/min (>60); Est Glom Filt Rate - Afr Amer 83 mL/min (>60); Globulin 4.1 g/dL (2.2-4.2); Glucose 222 mg/dL (74-106); Potassium 3.7 mmol/L (3.5-5.1); Protein, Total 7.7 g/dL (6.4-8.2); Sodium Level 138 mmol/L (136-145)
== END | disposition home or self-care (01) ==
PROVIDERS: PCP Family Medicine; Referring Provider Psychiatry & Neurology Neurology; Visit Provider Psychiatry & Neurology Neurology
DX: E78.5 Hyperlipidemia, unspecified (principal); F03.90 Unspecified dementia, unspecified severity, without behavioral disturbance, psychotic disturbance, mood disturbance, and anxiety; M25.561 Pain in right knee; M25.511 Pain in right shoulder; M25.512 Pain in left shoulder; M54.2 Cervicalgia; M54.50 Low back pain, unspecified
CPT/HCPCS: 36415; 72040; 72100; 73030; 73562; 80053; 84443

== ENCOUNTER 2024-02-24 11:34 | Emergency (ER) | payer MEDICARE, SELFPAY ==
[2024-02-24 11:35] VITALS: BP 144/98; PULSE 69; RESP 16; TEMP 37.1; O2SAT 100
[2024-02-24 11:37] VITALS: BMI 24.5
--- NOTE | 2024-02-24 11:51 | EX.ED.DYSGE1 ---
HPI <AMY Kumar - Last Filed: 02/24/24 15:00> History of Present Illness Chief Complaint: Hyperglycemia Narrative Narrative: 68-year-old male with past medical history of HLD, DM2, CAD, CVA presents with hyperglycemia. Patient only speaks Estonian and his son who lives with him interprets at the bedside. He states his dad has not been taking his diabetic medications for about a month which include oral medications and insulin. He complains of 4 days of confusion and increased urination. No fever or chills, no chest pain or shortness of breath, no vomiting or diarrhea. He has eating and drinking normally. PFS <AMY Kumar - Last Filed: 02/24/24 15:00> [facility] Medical History (Updated 02/24/24 @ 14:[address] 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) Diabetes mellitus History of ST elevation myocardial infarction (STEMI) (05/02/20) Type 2 diabetes mellitus Hyperlipidemia Atherosclerotic heart disease of [place] coronary artery without angina pectoris STEMI (ST elevation myocardial infarction) (05/02/20) Home Medications ?Medication ?Instructions ?Recorded ?Last Taken ?Type blood-glucose meter (FreeStyle #1 ea 07/23/21 Unknown Rx Flash System kit) lancets 30 gauge and blood glucose #50 ea 07/23/21 Unknown Rx strips combo pack needles, chris disposable 22 x 1 #50 ea 07/23/21 Unknown Rx aspirin 81 mg tablet,delayed 81 mg PO DAILY@0800 #90 tabs 11/17/21 Unknown Rx release metformin 500 mg tablet 500 mg PO BID #180 tabs 11/19/21 Unknown Rx atorvastatin 40 mg tablet 40 mg PO QHS #90 tabs 12/14/22 Unknown Rx clopidogrel 75 mg tablet 75 mg PO DAILY #90 tabs 12/14/22 Unknown Rx polyethylene glycol 3350 17 4 g PO .PRN 12/14/22 Unknown History gram/dose oral powder (Miralax) gabapentin 300 mg capsule 300 mg PO TIDCM #90 caps 01/07/23 Unknown Rx insulin glargine 100 unit/mL (3 15 unit (0.15 mL) subcut BID #15 mL 01/07/23 Unknown Rx mL) subcutaneous pen (Lantus Solostar U-100 Insulin) finasteride 5 mg tablet 5 mg PO DAILY 02/25/23 Unknown History glipizide 5 mg tablet, extended 10 mg PO DAILY 02/25/23 Unknown History release 24 hr tamsulosin 0.4 mg capsule 0.4 mg PO DAILY 02/25/23 Unknown History primidone 50 mg tablet 50 mg PO QHS 12/15/23 Unknown History donepezil 10 mg tablet 10 mg PO QHS #30 tabs 12/16/23 Unknown Rx escitalopram oxalate 10 mg tablet 10 mg PO DAILY #30 tabs 12/16/23 Unknown Rx flurbiprofen 100 mg tablet 100 mg PO TID PRN Muscle 12/16/23 Unknown Rx pain/joint pain #90 tabs memantine 28 mg capsule 28 mg PO DAILY #30 ea 12/16/23 Unknown Rx sprinkle,extended release 24hr lisinopril 5 mg tablet 5 mg PO DAILY #90 tabs 12/20/23 Unknown Rx metoprolol tartrate 25 mg tablet 25 mg PO BID #180 tabs 12/20/23 Unknown Rx Allergy/AdvReac Type Severity Reaction Status Date / Time No Known Allergies Allergy Verified 02/24/24 11:35 Family History Father Brain aneurysm Surgical History (Updated 02/25/23 @ 11:45 by Lina Helms) History of cardiac catheterization History of bilateral cataract extraction History of coronary artery stent placement (05/02/20) Social History (Updated 01/04/23 @ 21:[address] Charity Carpenter MD) household members: family Smoking Status: Former smoker how long ago did patient quit smokin years ago second hand exposure: No alcohol intake: never substance use type: does not use caffeine: Yes Type: coffee Number of servings: 5 what type of physical activity do you participate in: walking shabana/hoahaoism: Scientology seatbelt use: always ROS <AMY Kumar - Last Filed: 02/24/24 15:00> ROS ED ROS Narrative Constitutional: Negative for fever, chills, malaise. CVS: Negative for chest pain. Respiratory: Negative for shortness of breath. GI: Negative for abdominal pain, nausea, vomiting, diarrhea. EXAM <AMY Kumar - Last Filed: 02/24/24 15:00> Physical Exam Narrative Exam Narrative: CONST: Patient sitting in no acute distress. EYES: Normal inspection. NECK: Normal inspection. RESP: No respiratory distress, CTAB. CVS: Regular rate and rhythm, no murmur, no gallop. ABD: Soft and nontender, no guarding or rebound, nondistended. Back: Normal inspection, no CVA tenderness. SKIN: Color normal, no rash, warm, dry, intact. EXTREMITIES: Normal appearance, no pedal edema. NEURO: Alert and answering questions appropriately to his son. PSYCH: Normal affect. Const Vital Signs: 02/24/24 11:35 02/24/24 12:34 02/24/24 13:00 Temperature 98.7 F Temperature Source Temporal Pulse Rate 69 54 L 78 Respiratory Rate 16 19 H 19 H Blood Pressure 144/98 H 168/97 H 168/97 H Blood Pressure Mean 113 120 120 Pulse Ox 100 98 Oxygen Delivery Method Room Air Room Air 02/24/24 14:00 02/24/24 15:10 02/24/24 16:00 Temperature 97.2 F L Temperature Source Pulse Rate 97 59 L Respiratory Rate 22 H 15 Blood Pressure 151/100 H 158/97 H 145/112 H Blood Pressure Mean 117 117 123 Pulse Ox 96 95 Oxygen Delivery Method Room Air <Dr. David Briceno MD - Last Filed: 02/24/24 17:24> Physical Exam Const Vital Signs: 02/24/24 11:35 02/24/24 12:34 02/24/24 13:00 Temperature 98.7 F Temperature Source Temporal Pulse Rate 69 54 L 78 Respiratory Rate 16 19 H 19 H Blood Pressure 144/98 H 168/97 H 168/97 H Blood Pressure Mean 113 120 120 Pulse Ox 100 98 Oxygen Delivery Method Room Air Room Air 02/24/24 14:00 02/24/24 15:10 02/24/24 16:00 Temperature 97.2 F L Temperature Source Pulse Rate 97 59 L Respiratory Rate 22 H 15 Blood Pressure 151/100 H 158/97 H 145/112 H Blood Pressure Mean 117 117 123 Pulse Ox 96 95 Oxygen Delivery Method Room Air [facility] <AMY Kumar - Last Filed: 02/24/24 15:00> [facility] Narrative Medical decision making narrative: History gathered from: Patient, son Differential: Diabetic hyperglycemia, DKA I have personally performed a face to face assessment of the patient and have reviewed the ABBY Note. I performed a substantive portion of the visit including all aspects of the following. My marc findings include: History is is remarkable for [id number]. Son was marine transport professionals. He stopped taking his medicine a month ago. He is taking these herbal supplements. He does endorse bilateral blurred vision. He does endorse thirst and dry mouth. He does endorse frequency, and nocturia. There has been some weight loss. Exam is HEENT is remarkable dry mucosa. Heart is regular. Rate is normal. There is no murmur, gallop or rub. Lungs are clear to auscultation. Abdomen soft nontender. He has no dermatologic lesions noted. Medical Decision Making suspect patient's bilateral blurred vision is due to hyperglycemia. Blood work was obtained to assess renal function, electrolytes as well as anion gap. Other additions or changes: Patient was treated initially with 5 units of insulin. There was minimal improvement. Additional 5 units of insulin was ordered. Patient was instructed to take his medicine. He is also instructed to discontinue the herbal supplements which are not helping his diabetes. Lab Data Labs: Laboratory Results - last 24 hr 02/24/24 02/24/24 02/24/24 12:07 14:16 14:32 WBC 6.9 RBC 5.07 Hgb 14.3 Hct 42.7 MCV 84.2 MCH 28.2 MCHC 33.5 RDW Std Deviation 34.8 L RDW Coeff of Chris 11.5 L Plt Count 157 MPV 11.9 Immature Gran % (Auto) 0.100 Neut % (Auto) 61.1 Lymph % (Auto) 30.8 [place] % (Auto) 5.8 Eos % (Auto) 1.3 Baso % (Auto) 0.9 Absolute Neuts (auto) 4.2 Absolute Lymphs (auto) 2.12 Nucleated RBC % 0 Sodium 131 L Potassium 3.9 Chloride 95 L Carbon Dioxide 28.0 Anion Gap 9 BUN 25 H Creatinine 1.81 H Est GFR (MDRD) Af Amer 48 L Est GFR (MDRD) Non-Af 40 L BUN/Creatinine Ratio 13.8 Glucose 488 H* Calcium 9.8 Urine Color Straw Urine Clarity Clear Urine pH 6.5 Ur Specific Plover 1.010 Urine Protein 15 H Urine Glucose (UA) 1000 H Urine Ketones 15 H Urine Occult Blood Negative Urine Nitrite Negative Urine Bilirubin Negative Urine Urobilinogen Normal Ur Leukocyte Esterase 25 H Urine RBC 0 SEEN Urine WBC 0-5 SEEN Ur Squamous Epith Cells 0-5 SEEN Urine Bacteria 0 SEEN Urine Mucus 0 SEEN Urine Yeast RARE Acetone Level SMALL H POC Glucose 418 H 02/24/24 15:26 WBC RBC Hgb Hct MCV MCH MCHC RDW Std Deviation RDW Coeff of Chris Plt Count MPV Immature Gran % (Auto) Neut % (Auto) Lymph % (Auto) [place] % (Auto) Eos % (Auto) Baso % (Auto) Absolute Neuts (auto) Absolute Lymphs (auto) Nucleated RBC % Sodium Potassium Chloride Carbon Dioxide Anion Gap BUN Creatinine Est GFR (MDRD) Af Amer Est GFR (MDRD) Non-Af BUN/Creatinine Ratio Glucose Calcium Urine Color Urine Clarity Urine pH Ur Specific Plover Urine Protein Urine Glucose (UA) Urine Ketones Urine Occult Blood Urine Nitrite Urine Bilirubin Urine Urobilinogen Ur Leukocyte Esterase Urine RBC Urine WBC Ur Squamous Epith Cells Urine Bacteria Urine Mucus Urine Yeast Acetone Level POC Glucose 293 H <Dr. David Briceno MD - Last Filed: 02/24/24 17:24> [facility] MDM Narrative Medical decision making narrative: I have personally performed a face to face assessment of the patient and have reviewed the ABBY Note. I performed a substantive portion of the visit including all aspects of the following. My marc findings include: History is is remarkable for [id number]. Son was marine transport professionals. He stopped taking his medicine a month ago. He is taking these herbal supplements. He does endorse bilateral blurred vision. He does endorse thirst and dry mouth. He does endorse frequency, and nocturia. There has been some weight loss. Exam is HEENT is remarkable dry mucosa. Heart is regular. Rate is normal. There is no murmur, gallop or rub. Lungs are clear to auscultation. Abdomen soft nontender. He has no dermatologic lesions noted. Medical Decision Making suspect patient's bilateral blurred vision is due to hyperglycemia. Blood work was obtained to assess renal function, electrolytes as well as anion gap. Other additions or changes: Patient was treated initially with 5 units of insulin. There was no improvement. Additional 5 units of insulin was ordered. Patient was instructed to take his medicine. He is also instructed to discontinue the herbal supplements which are not helping his diabetes. Lab Data Attestation: I reviewed the patient's lab results. Lab results narrative: CBC normal. Basic metabolic panel is marked for glucose of 488 with a normal CO2 anion gap. BUN and creatinine are elevated 25 and 1.8. He does have small ketones. Labs: Laboratory Results - last 24 hr 02/24/24 02/24/24 02/24/24 12:07 14:16 14:32 WBC 6.9 RBC 5.07 Hgb 14.3 Hct 42.7 MCV 84.2 MCH 28.2 MCHC 33.5 RDW Std Deviation 34.8 L RDW Coeff of Chris 11.5 L Plt Count 157 MPV 11.9 Immature Gran % (Auto) 0.100 Neut % (Auto) 61.1 Lymph % (Auto) 30.8 [place] % (Auto) 5.8 Eos % (Auto) 1.3 Baso % (Auto) 0.9 Absolute Neuts (auto) 4.2 Absolute Lymphs (auto) 2.12 Nucleated RBC % 0 Sodium 131 L Potassium 3.9 Chloride 95 L Carbon Dioxide 28.0 Anion Gap 9 BUN 25 H Creatinine 1.81 H Est GFR (MDRD) Af Amer 48 L Est GFR (MDRD) Non-Af 40 L BUN/Creatinine Ratio 13.8 Glucose 488 H* Calcium 9.8 Urine Color Straw Urine Clarity Clear Urine pH 6.5 Ur Specific Plover 1.010 Urine Protein 15 H Urine Glucose (UA) 1000 H Urine Ketones 15 H Urine Occult Blood Negative Urine Nitrite Negative Urine Bilirubin Negative Urine Urobilinogen Normal Ur Leukocyte Esterase 25 H Urine RBC 0 SEEN Urine WBC 0-5 SEEN Ur Squamous Epith Cells 0-5 SEEN Urine Bacteria 0 SEEN Urine Mucus 0 SEEN Urine Yeast RARE Acetone Level SMALL H POC Glucose 418 H 02/24/24 15:26 WBC RBC Hgb Hct MCV MCH MCHC RDW Std Deviation RDW Coeff of Chris Plt Count MPV Immature Gran % (Auto) Neut % (Auto) Lymph % (Auto) [place] % (Auto) Eos % (Auto) Baso % (Auto) Absolute Neuts (auto) Absolute Lymphs (auto) Nucleated RBC % Sodium Potassium Chloride Carbon Dioxide Anion Gap BUN Creatinine Est GFR (MDRD) Af Amer Est GFR (MDRD) Non-Af BUN/Creatinine Ratio Glucose Calcium Urine Color Urine Clarity Urine pH Ur Specific Plover Urine Protein Urine Glucose (UA) Urine Ketones Urine Occult Blood Urine Nitrite Urine Bilirubin Urine Urobilinogen Ur Leukocyte Esterase Urine RBC Urine WBC Ur Squamous Epith Cells Urine Bacteria Urine Mucus Urine Yeast Acetone Level POC Glucose 293 H Discharge Plan Triage Chief Complaint: Hyperglycemia ED Midlevel Provider: Yoanna David ED Provider: David Briceno Dx/Rx/DC Orders Clinical Impression: Diabetes mellitus with hyperglycemia, Noncompliance with medication regimen, Learning disability, Atherosclerotic heart disease of [place] coronary artery without angina pectoris, Acute renal insufficiency, Ketosis Instructions: Blood Sugar Check Steps Prescriptions: No Action aspirin 81 mg tablet,delayed release (DR/EC) 81 mg PO DAILY@0800 Qty: 90 3RF Patient Comments: CALL OFFICE RE:STOPPING polyethylene glycol 3350 [Miralax] 17 gram/dose powder 4 g PO .PRN clopidogrel 75 mg tablet 75 mg PO DAILY Qty: 90 3RF atorvastatin 40 mg tablet 40 mg PO QHS Qty: 90 3RF primidone 50 mg tablet 50 mg PO QHS Rx Instructions: for tremors donepezil 10 mg tablet 10 mg PO QHS Qty: 30 5RF escitalopram oxalate 10 mg tablet 10 mg PO DAILY Qty: 30 5RF memantine 28 mg capsule,sprinkle,ER 24hr 28 mg PO DAILY Qty: 30 5RF Rx Instructions: Week #4 and thereafter flurbiprofen 100 mg tablet 100 mg PO TID PRN (Reason: Muscle pain/joint pain) Qty: 90 4RF (DME) lancets-blood glucose strips 30 gauge combo pack See Rx Instructions .ROUTE .MEDSUPPLY Qty: 50 0RF Rx Instructions: As directed (DME) needles, chris disposable 22 x 1 needle See Rx Instructions .ROUTE .MEDSUPPLY Qty: 50 0RF Rx Instructions: As directed (DME) blood-glucose meter [[employer] Flash System] Kit See Rx Instructions .ROUTE .MEDSUPPLY Qty: 1 0RF Rx Instructions: As directed tamsulosin 0.4 mg capsule 0.4 mg PO DAILY Patient Comments: TAKE 1 CAPSULE BY MOUTH ONCE DAILY glipizide 5 mg tablet extended release 24hr 10 mg PO DAILY Patient Comments: TAKE 2 TABLETS BY MOUTH DAILY WITH FOOD finasteride 5 mg tablet 5 mg PO DAILY Patient Comments: TAKE 1 TABLET BY MOUTH ONCE DAILY gabapentin 300 mg Capsule 300 mg PO TIDCM Qty: 90 1RF insulin glargine [Lantus Solostar U-100 Insulin] 100 unit/mL (3 mL) insulin pen 15 unit subcut BID Qty: 15 3RF metformin 500 mg tablet 500 mg PO BID Qty: 180 3RF metoprolol tartrate 25 mg tablet 25 mg PO BID Qty: 180 0RF lisinopril 5 mg tablet 5 mg PO DAILY Qty: 90 3RF Primary Care Provider: Magnolia Davis Referrals: Magnolia Davis MD [Primary Care Provider] - Activity Restrictions/Additional Instructions: It is very important to take your diabetes medications including the pills and insulin and follow-up with your doctor. Print Language: Estonian Disposition Disposition: Home, Self Care Discharge Date/Time: 02/24/24 16:47
[2024-02-24] MEDS: 0.9% Normal Saline (1000mL) 1,000 ML 999 ML IV (12:06)
[2024-02-24 12:17] LABS: Absolute Lymphocyte Count 2.12 X10^3/uL (0.83-4.51); Absolute Neutrophil Count 4.2 X10^3/uL (2.0-7.7); Basophil# 0.06 X10^3/uL; Basophil% 0.9 % (0-1); Eosinophil# 0.09 X10^3/uL; Eosinophils% 1.3 % (0-5); Hematocrit 42.7 % (40-54); Hemoglobin 14.3 g/dL (13.0-16.5); Lymphocyte # 2.12 X10^3/ul (0.83-4.51); Lymphocyte % 30.8 % (19-41); Mean Corp Hgb Conc 33.5 g/dL (32-36); Mean Corpuscular Hgb 28.2 pg (27.0-32.0); Mean Corpuscular Volume 84.2 fL (80-94); Mean Platelet Vol. 11.9 fl (6.2-12.0); Monocyte% 5.8 % (0-10); NRBC Flagged by Analyzer 0 % (0-5); Neutrophil # 4.21 X10^3/uL (2.7-7.7); Neutrophil % 61.1 % (47-70); Platelet Count 157 K/mm3 (150-450); RBC Distribution Width CV 11.5 % (11.6-14.6); RBC Distribution Width SD 34.8 fl (35.1-43.9); Red Blood Count 5.07 M/mm3 (4.6-6.2); White Blood Count 6.9 K/mm3 (4.4-11.0)
[2024-02-24 12:33] LABS: Anion Gap 9 (5-15); BUN 25 mg/dL (7-18); BUN/Creat Ratio 13.8 RATIO (10-20); Calcium,Total 9.8 mg/dL (8.5-10.1); Chloride 95 mmol/L (98-107); Creatinine, Serum 1.81 mg/dL (0.70-1.30); EST Glomerular Filtration Rate 40 mL/min (>60); Est Glom Filt Rate - Afr Amer 48 mL/min (>60); Glucose 488 mg/dL (74-106); Potassium 3.9 mmol/L (3.5-5.1); Sodium Level 131 mmol/L (136-145)
[2024-02-24 12:34] VITALS: BP 168/97; PULSE 54; RESP 19; O2SAT 98
[2024-02-24 13:00] VITALS: BP 168/97; PULSE 78; RESP 19
[2024-02-24] MEDS: Insulin Lispro 100 UNIT/ML INSULN.PEN SC (13:05)
[2024-02-24 14:00] VITALS: BP 151/100; PULSE 97; RESP 22; O2SAT 96
[2024-02-24 14:38] LABS: Bedside Glucose 418 mg/dL (74-106)
[2024-02-24 14:41] LABS: Bacteria 0 SEEN /hpf (None Seen); Mucous, Urine 0 SEEN /hpf (<or=2+); Red Blood Cells-Urine 0 SEEN /hpf (0-5)
[2024-02-24 14:44] LABS: Color, Urine Straw (Yellow); Glucose, Dipstick 1000 mg/dl (Normal); Ketone-Dipstick 15 mg/dl (Negative); Leukocyte Esterase-Dipstick 25 /ul (Negative); Nitrite-Dipstick Negative (Negative); Occult Blood-Urine Negative /ul (Negative); Protein-Dipstick 15 mg/dl (Negative); Urine Bilirubin Dipstick Negative (Negative); Urine Clarity Clear (Clear); Urine Urobilinogen Normal (Normal); Urine pH 6.5 (5.0 - 8.0)
[2024-02-24] MEDS: Insulin Lispro 100 UNIT/ML VIAL (ADMELOG) IV (14:44)
[2024-02-24 15:02] LABS: Squamous Epithelial Cells - UA 0-5 SEEN /hpf (0-5); White Blood Cells 0-5 SEEN /hpf (0-5); Yeast-Urine RARE /hpf (None Seen)
[2024-02-24 15:10] VITALS: BP 158/97; PULSE 59; RESP 15; TEMP 36.2; O2SAT 95
[2024-02-24 15:46] LABS: Bedside Glucose 293 mg/dL (74-106)
[2024-02-24 16:00] VITALS: BP 145/112
== END 2024-02-24 16:47 | disposition home or self-care (01) ==
PROVIDERS: Physician Assistant; Emergency Provider Emergency Medicine; PCP Family Medicine; Visit Provider Emergency Medicine
DX: E11.65 Type 2 diabetes mellitus with hyperglycemia (principal); E11.10 Type 2 diabetes mellitus with ketoacidosis without coma; Z79.4 Long term (current) use of insulin; N28.9 Disorder of kidney and ureter, unspecified; E78.00 Pure hypercholesterolemia, unspecified; I25.10 Atherosclerotic heart disease of native coronary artery without angina pectoris; I25.2 Old myocardial infarction; I10 Essential (primary) hypertension; F81.9 Developmental disorder of scholastic skills, unspecified; Z95.5 Presence of coronary angioplasty implant and graft; Z91.148 Patient's other noncompliance with medication regimen for other reason; Z79.02 Long term (current) use of antithrombotics/antiplatelets; Z79.82 Long term (current) use of aspirin; Z79.84 Long term (current) use of oral hypoglycemic drugs; Z79.899 Other long term (current) drug therapy; Z87.891 Personal history of nicotine dependence
CPT/HCPCS: 80048; 81001; 82009; 82962; 85025; 99282

== ENCOUNTER → 2024-05-23 | Outpatient (CLI) | payer MEDICARE, SELFPAY ==
--- NOTE | 2024-05-23 13:54 | BD_ITS ---
PROCEDURE: DEXA BONE DENSITY STUDY REASON FOR EXAM: History of adult fracture. M, age 68 y/o . TECHNIQUE: DEXA scan of the lumbar spine and both hips. COMPARISON: None. FINDINGS: T-SCORES Lumbar spine: Total bone mineral density measures 0.799 g per cm2. T-score measures -2.7 and Z-score measures -1.8 Left hip: Total bone mineral density of the left hip measures 0.904 grams/centimeter sq. T-score measures -0.9 and Z-score measures -0.2. Right femoral neck bone mineral density measures 0.680 grams/centimeter sq. T-score measures -1.8 and Z-score measures -0.7 Right hip: Total bone mineral density of the right hip measures 0.874 grams/centimeter squared. T-score measures -1.1 and Z-score measures -0.4. Bone mineral density of the right femoral neck measures 0.682 grams/centimeter squared. T-score measures -1.8 and Z-score measures -0.6. Patient demonstrates osteoporosis of the lumbar spine and osteopenia of both hips. FRAX* Results: 10 Year Probability of Fracture: Hip Fracture(1): 12% Major Osteoporotic Fracture(2): 2.7% *FRAX is a trademark of the [employer]'s [place] for Metabolic Bone Disease, World Health Organization (WHO) Collaborating [place]. 1-The 10-year probability of fracture may be lower than reported if the patient has received treatment. 2-Major Osteoporotic Fracture: Clinical Spine, Forearm, Hip or Shoulder. The T-scores are also available for review on the [facility] PACS or by accessing the [facility] electronic medical record. BD/Dexa Bone Density Study IMPRESSION: OSTEOPOROSIS. Reading Location: [id number]
== END | disposition home or self-care (01) ==
LOC: OPBD 13:49
PROVIDERS: PCP Family Medicine; Referring Provider Psychiatry & Neurology Neurology; Visit Provider Psychiatry & Neurology Neurology
DX: M81.0 Age-related osteoporosis without current pathological fracture (principal)
CPT/HCPCS: 77080

== ENCOUNTER → 2024-08-21 | Outpatient (CLI) | payer MEDICARE, SELFPAY ==
[2024-08-25 11:08] LABS: Vitamin D 1,25-Dihydroxy 28.4 pg/mL (24.8-81.5)
== END | disposition home or self-care (01) ==
LOC: MTLAB 12:38
PROVIDERS: PCP Family Medicine; Referring Provider Psychiatry & Neurology Neurology; Visit Provider Psychiatry & Neurology Neurology
DX: E55.9 Vitamin D deficiency, unspecified (principal)
CPT/HCPCS: 36415; 82652